=== PATIENT | male | born 1945 | race Caucasian/White ===

== ENCOUNTER 2020-04-11 14:50 | Emergency (ER) | payer OTHER, MEDICARE, SELFPAY ==
[2020-04-11 15:15] VITALS: BP 151/82; PULSE 97; RESP 16; TEMP 36.6; O2SAT 93; BMI 38.0
[2020-04-11 16:02] LABS: Basophils % 0.4 %; Eosinophils # 0.2 10^3/uL (0.0-0.8); Hematocrit 43.4 % (42.0-52.0); Hemoglobin 13.6 g/dL (11.7-16.6); Lymphocytes # 1.6 10^3/uL (0.8-4.8); Lymphocytes % 14.4 %; Mean Corpuscular HGB Conc 31.3 g/dL (30.0-36.0); Mean Corpuscular Hemoglobin 28.6 pg (28.0-34.0); Mean Corpuscular Volume 91.2 fL (80-94); Mean Platelet Volume 9.2 fL (7.4-10.4); Monocytes # 0.9 10^3/uL (0.2-0.9); Monocytes % 8.4 %; Neutrophils # 7.98 10^3/uL (1.8-7.7); Neutrophils % 74.1 %; Nucleated Red Blood Cells % 0 %; Platelet Count 411 10^3/cmm (130-400); Red Blood Count 4.76 10^6/uL (4.1-5.3); Red Cell Distribution Width 15.3 % (12.1-15.1); White Blood Count 10.8 10^3/uL (4.0-10.0)
[2020-04-11 16:24] LABS: Alanine Aminotransferase 42 U/L (0-41); Albumin Level 4.6 g/dL (3.5-5.2); Alkaline Phosphatase 101 IU/L (40-130); Anion Gap 13.7 (5-19); Aspartate Amino Transferase 52 U/L (0-40); Blood Urea Nitrogen 20 mg/dL (8-23); Calcium 9.7 mg/dL (8.5-10.5); Carbon Dioxide 33 mmol/L (22-29); Chloride 98 mmol/L (98-107); Glucose 116 mg/dL (65-115); Osmolality Calculated 288 mOsm/kg (285-295); Potassium 4.7 mmol/L (3.5-5.1); Sodium 140 mmol/L (136-145); Total Bilirubin 0.4 mg/dL (0.15-1.2); Total Protein 7.6 g/dL (6.6-8.7)
--- NOTE | 2020-04-11 17:48 | W.ED.GENADLT ---
HPI - General Adult General: Chief complaint: General Medical Stated complaint: Facial pain, throat pain Time Seen by Provider: 04/11/20 17:23 History of Present Illness: HPI narrative: 74-year-old male comes in with complaining of intermittent sharp severe facial pain on the left side that shoots through the face into his ear and jaw. It comes and goes intermittently when he does get it it is quite severe. [facility]en seen [facility] they have been treating with antibiotics and steroids with no relief. States he will get episodes of facial pain that are so severe that it become incapacitating. Onset (ago): week(s) Location: face Radiation: non-radiation Severity: severe Quality: stabbing and sharp Pain Consistency: intermittent Relieving factors: none Exacerbating factors: none Associated symptoms: Reports no associated symptoms; Deny chest pain, dyspnea, malaise, nausea, rash or vomiting Treatments prior to arrival: other (Steroids and antibiotics with no relief) Review of Systems Const: Denies: fever(s), chills, body aches, change in appetite, fatigue or malaise ENMT: Denies: throat pain, ear or mastoid pain, nasal discharge or nasal congestion Card: Denies: chest pain, edema, dyspnea on exertion or orthopnea Resp: Denies: dyspnea, productive cough or non-productive cough GI: Denies: abdominal pain, nausea, vomiting, hematemesis, coffee ground emesis, diarrhea, constipation, bloating, hematochezia or melena : Denies: flank pain, dysuria, urinary frequency or urinary urgency Skin/Breast: Denies: rash or pruritus PFSH ED PFSH: Medical History Anticoagulant long-term use Aortic insufficiency with aortic stenosis ASHD (arteriosclerotic heart disease) COPD (chronic obstructive pulmonary disease) Dyslipidemia GERD (gastroesophageal reflux disease) HTN (hypertension) Hx pulmonary embolism THANG (obstructive sleep apnea) Statin intolerance Tobacco abuse Surgical History S/P PTCA (percutaneous transluminal coronary angioplasty) S/P tonsillectomy Family History Brother Cancer Diabetes Hypertension Myocardial infarction Mother CAD (coronary artery disease) Diabetes Hypertension Myocardial infarction Father CAD (coronary artery disease) Stroke Hypertension Myocardial infarction Sister CAD (coronary artery disease) Social History Smoking and tobacco status: former smoker Alcohol intake: current Substance/Drug Use: current Substance/Drug use frequency: few times a month Substance/Drug use type: Marijuana Household members: spouse Marital status: Physical Exam Const: COMMON NORMALS: no acute distress GENERAL APPEARANCE: cooperative and comfortable ORIENTATION/CONSCIOUSNESS: Yes awake, Yes oriented to person, Yes oriented to place and Yes oriented to time HENMT: COMMON NORMALS: normocephalic, atraumatic, hearing grossly normal bilaterally, external ears normal, EAC's normal, TM's normal bilaterally, Normal nasal mucous membranes and turbinates present, moist oral mucous membranes and oropharynx normal HEAD & SCALP: normocephalic and atraumatic NOSE: Normal nasal mucous membranes and turbinates present EXTERNAL EAR: Yes external ears normal EXTERNAL AUDITORY CANAL: EAC's normal TYMPANIC MEMBRANE: TM's normal bilaterally Eye: COMMON NORMALS: Equal, round and reactive pupils present, EOMs intact bilaterally, conjunctivae normal and no scleral icterus CONJUNCTIVA: Yes conjunctivae normal PUPIL: Yes Equal, round and reactive pupils present Neck/C-Spine: COMMON NORMALS: full ROM, no lymphadenopathy, supple and no JVD Lymph: LYMPHATIC: no lymphadenopathy noted and no lymphedema noted Resp: COMMON NORMALS: normal respiratory effort, No retractions, No use of accessory muscles and clear to auscultation bilaterally AUSCULTATION: clear to auscultation bilaterally Cardio: COMMON NORMALS: no JVD, regular rate, regular rhythm and No murmurs present (Cardio) RATE: regular rate RHYTHM: regular rhythm GI: COMMON NORMALS: Soft to palpation and No hepatosplenomegaly present AUSCULTATION: Yes normoactive bowel sounds PALPATION: Yes Soft to palpation, No Tenderness to palpation present (GI), No Guarding due to palpation present (GI) and Yes No hepatosplenomegaly present Extremity: COMMON NORMALS: normal to inspection, capillary refill normal, no clubbing, cyanosis or edema, no calf tenderness and no pedal edema Neuro: SENSORIUM/ORIENTATION: Yes oriented to person, Yes oriented to place and Yes oriented to time Skin: COMMON NORMALS: no rashes or lesions noted GENERAL SKIN EXAM: no rashes or lesions noted Course Vital Signs: Vital signs: Vital Signs Temperature 97.8 F 04/11/20 15:15 Pulse Rate 87 04/11/20 17:51 Respiratory Rate 19 H 04/11/20 17:51 Blood Pressure 162/82 04/11/20 17:51 Pulse Oximetry 92 04/11/20 17:51 MDM - General Adult MDM Narrative: Medical decision making narrative: Discussed the findings with patient we will start him on Tegretol to 200 mg 3 times daily follow-up with primary care doctor within the week for further evaluation and adjustment of medications he may need to be increased to 400 mg twice a day depending on his response and any further breakthrough symptoms Lab Data: Labs: Lab Results 04/11/20 04/11/20 Range/Units 15:55 15:55 WBC 10.8 H (4.0-10.0) 10^3/ uL RBC 4.76 (4.1-5.3) 10^6/u L Hgb 13.6 (11.7-16.6) g/dL Hct 43.4 (42.0-52.0) % MCV 91.2 (80-94) fL MCH 28.6 (28.0-34.0) pg MCHC 31.3 (30.0-36.0) g/dL RDW 15.3 H (12.1-15.1) % Plt Count 411 H (130-400) 10^3/c mm MPV 9.2 (7.4-10.4) fL Neut % (Auto) 74.1 % Lymph % (Auto) 14.4 % [place] % (Auto) 8.4 % Eos % (Auto) 2.0 % Baso % (Auto) 0.4 % Neut # (Auto) 7.98 H (1.8-7.7) 10^3/u L Lymph # (Auto) 1.6 (0.8-4.8) 10^3/u L [place] # (Auto) 0.9 (0.2-0.9) 10^3/u L Eos # (Auto) 0.2 (0.0-0.8) 10^3/u L Baso # (Auto) 0.0 (0.0-0.1) 10^3/u L Nucleated RBC % (a uto) 0 % Nucleated RBCs # 0.0 /100WBC Sodium 140 (136-145) mmol/L Potassium 4.7 (3.5-5.1) mmol/L Chloride 98 (98-107) mmol/L Carbon Dioxide 33 H (22-29) mmol/L Anion Gap 13.7 (5-19) BUN 20 (8-23) mg/dL Creatinine 1.2 (0.7-1.2) mg/dL GFR Calculation Not Reportable Glucose 116 H (65-115) mg/dL Calculated Osmolal ity 288 (285-295) mOsm/k g Calcium 9.7 (8.5-10.5) mg/dL Total Bilirubin 0.4 (0.15-1.2) mg/dL AST 52 H (0-40) U/L ALT 42 H (0-41) U/L Alkaline Phosphata se 101 (40-130) IU/L Total Protein 7.6 (6.6-8.7) g/dL Albumin 4.6 (3.5-5.2) g/dL Globulin 3.0 (1.3-4.6) g/dL Discharge Plan Discharge Patient Disposition: Home Clinical Impression: Trigeminal neuralgia Condition: Stable Prescriptions: New Tegretol 200 mg tablet 200 mg PO TID Qty: 60 RF: 0 No Action aspirin [Aspir-81] 81 mg tablet,delayed release (DR/EC) 81 mg PO DAILY RF: 0 pantoprazole 40 mg tablet,delayed release (DR/EC) 40 mg PO DAILY RF: 0 losartan 100 mg tablet 100 mg PO DAILY RF: 0 clopidogrel 75 mg tablet 75 mg PO DAILY RF: 0 metoprolol tartrate 50 mg tablet 25 mg PO BID RF: 0 metformin 1,000 mg tablet 1,000 mg PO BID RF: 0 Eliquis 5 mg tablet 5 mg PO BID RF: 0 Spiriva with HandiHaler 18 mcg capsule, w/inhalation device 1 cap INHALATION DAILY RF: 0 albuterol sulfate [ProAir HFA] 90 mcg/actuation HFA aerosol inhaler 2 puff INHALATION Q6H PRNRF: 0 Discharge Orders: Discharge Order (Routine); Ordered 04/11/20 Ordered By: Eric Watson Referrals: Ely Gunter FNP [Primary Care Provider] - Discharge Diet: Advance as tolerated Discharge Activity: Resume usual activity Activity Restrictions/Additional Instructions: With your primary care doctor within the next 2 weeks to reevaluate efficacy of this new medicine and get appropriate lab work Discharge Date/Time: 04/11/20 17:52 Coding Level of Care Code ED Erp Project Manager for Kari Ortiz
[2020-04-11 17:51] VITALS: BP 162/82; PULSE 87; RESP 19; O2SAT 92
== END 2020-04-11 17:52 | disposition home or self-care (01) ==
PROVIDERS: Nurse Practitioner Family; Emergency Provider Family Medicine; PCP Nurse Practitioner
DX: G50.0 Trigeminal neuralgia (principal); Z79.82 Long term (current) use of aspirin; Z79.02 Long term (current) use of antithrombotics/antiplatelets; Z79.01 Long term (current) use of anticoagulants; J44.9 Chronic obstructive pulmonary disease, unspecified; E78.5 Hyperlipidemia, unspecified; I10 Essential (primary) hypertension; Z87.891 Personal history of nicotine dependence
CPT/HCPCS: 12345; 36415; 80053; 85025; 99281; 99282

== ENCOUNTER 2020-05-22 08:11 | Outpatient (CLI) | payer OTHER, SELFPAY ==
--- NOTE | 2020-05-22 08:00 | USCV_ITS ---
Aamir Santa Age: 74 Gender: M : 1945 Exam Date: 05/22/2020 08:34 Ordering Phys: Dav Ramirez M.D ([email or web address]) Technologist: Denise Phillips Exam Location: [facility] [place] Indication: DYSPNEA BP: 186 / 83 HR: 84 Rhythm: Sinus Technical Quality: Adequate MEASUREMENTS (Male / Female) Normal Values 2D ECHO LV Diastolic Diameter PLAX 3.8 cm 4.2 - 5.9 / 3.9 - 5.3 cm LV Systolic Diameter PLAX 1.8 cm LV Chamber Size 2.5 cm IVS Diastolic Thickness 1.6 cm 0.6 - 1.0 / 0.6 - 0.9 cm IVS Systolic Thickness 1.4 cm LVPW Diastolic Thickness 2.4 cm 0.6 - 1.0 / 0.6 - 0.9 cm LVPW Systolic Thickness 2.9 cm RV Chamber Size 3.9 cm LVOT Diameter 2.0 cm LV Ejection Fraction 2D Teich 84.9 % LV Ejection Fraction MOD 2C 65.5 % LV Ejection Fraction 2C AL 67.1 % LA Diameter 4.9 cm LA Width 2.5 cm LA Height 4.1 cm RA Width 2.8 cm RA Height 3.5 cm Aorta at Sinotubular Diameter 3.0 cm M-MODE LV Diastolic Diameter MM 5.1 cm 4.2 - 5.9 / 3.9 - 5.3 cm LV Systolic Diameter MM 2.3 cm LV Ejection Fraction MM Teich 85.4 % IVS Diastolic Thickness MM 1.2 cm 0.6 - 1.0 / 0.6 - 0.9 cm IVS Systolic Thickness MM 1.4 cm LVPW Diastolic Thickness MM 1.7 cm 0.6 - 1.0 / 0.6 - 0.9 cm LVPW Systolic Thickness MM 2.1 cm Aortic Annulus Diameter 3.8 cm LA Ao Ratio MM 1.3 MV E Point Septal Separation 0.6 cm DOPPLER AV Peak Velocity 140.0 cm/s LVOT Peak Velocity 114.0 cm/s AV Area Cont Eq vti 2.2 cm squared AV Area Cont Eq pk 2.7 cm squared MV Area PHT 3.9 cm squared Mitral E to A Ratio 0.8 MV E' Velocity 11.0 cm/s Mitral E to MV E' Ratio 7.0 Mitral E to LV E' Lateral Ratio 8.1 Mitral E to LV E' Septal Ratio 6.2 TR Peak Velocity 152.0 cm/s TR Peak Gradient 9.3 mmHg TV Peak E Velocity 60.0 cm/s Right Atrial Pressure 3.0 mmHg Pulmonary Artery Systolic Pressu 12.2 mmHg PV Peak Velocity 96.0 cm/s RV Acceleration Time 0.0 s RV Ejection Time 0.3 s RV AcT/ET 0.2 FINDINGS Left Ventricle Normal left ventricular size and systolic function, with no regional wall motion abnormalities. LVEF is 60 to 65%. Mild to moderate LVH is noted. Grade 1 diastolic dysfunction is present. Right Ventricle The right ventricle is normal in size and function. Right Atrium The right atrium is normal in size. Left Atrium The left atrium is normal in size. Mitral Valve Structurally normal mitral valve without significant stenosis or prolapse. There is no mitral regurgitation. Aortic Valve S mild thickening of aortic valve. No hemodynamically significant aortic stenosis is noted. There is trace aortic regurgitation. Tricuspid Valve Structurally normal tricuspid valve without significant stenosis or regurgitation. Insufficient TR jet to measure RVSP. Pulmonic Valve Structurally normal pulmonic valve without significant stenosis. There is no pulmonic regurgitation. Pericardium Normal pericardium without effusion. Aorta Normal ascending aorta dimension. CONCLUSIONS Normal LV systolic function with EF of 60 to 65%. Grade 1 diastolic dysfunction is present. No significant changes since the prior study of 06/28/2018 Dav Ramirez MD (Electronically Signed) Final Date: 27 May 2020 10:43 S
== END 2020-05-22 08:12 | disposition home or self-care (01) ==
LOC: US 08:20
PROVIDERS: PCP Nurse Practitioner; Visit Provider Internal Medicine
DX: R06.00 Dyspnea, unspecified (principal)
CPT/HCPCS: 93306

== ENCOUNTER → 2021-04-04 08:25 | Outpatient (BNVA) | payer OTHER, SELFPAY | PROVIDERS: PCP Nurse Practitioner; Visit Provider Urology | DX: N48.1 Balanitis (principal); N47.1 Phimosis; Z86.711 Personal history of pulmonary embolism; Z79.01 Long term (current) use of anticoagulants | CPT/HCPCS: 81003 ==

== ENCOUNTER → 2021-04-25 13:56 | Outpatient (BNVA) | payer OTHER, SELFPAY | PROVIDERS: PCP Nurse Practitioner; Visit Provider Urology | DX: N47.1 Phimosis (principal); N48.1 Balanitis | CPT/HCPCS: 88305 ==

== ENCOUNTER 2021-05-30 12:21 | Outpatient (CLI) | payer OTHER, SELFPAY ==
--- NOTE | 2021-05-30 12:31 | XR_ITS ---
WS: [id number] XR chest 2V* [id number] REASON FOR EXAM: R07.1 - Chest pain on breathing FINDINGS: Moderate ectasia and tortuosity of the thoracic aorta without focal aneurysmal dilatation. Normal hea rt size. Calcified granulomas disease in both hemithoraces. Compared to previous examination of 08/15/2018 no acute pulmonary parenchymal or pleural abnormality i s identified. Chronic appearing changes are seen in the lower lungs and lingula of the left lung. The bony thorax is intact. XR/XR chest 2V* [id number] IMPRESSION: No acute chest abnormality.
== END 2021-05-30 12:22 | disposition home or self-care (01) ==
LOC: RAD 12:26
PROVIDERS: PCP Nurse Practitioner; Visit Provider Nurse Practitioner Family
DX: R07.1 Chest pain on breathing (principal)
CPT/HCPCS: 71046

== ENCOUNTER 2021-05-31 20:01 | Observation (INO) | payer OTHER, MEDICARE, SELFPAY ==
[2021-05-31] VITALS (19 sets, daily range): BP systolic 139–238; BP diastolic 66–114; PULSE 83–106; RESP 16–27; TEMP 36.8; O2SAT 89–97; BMI 34.9
--- NOTE | 2021-05-31 20:03 | XRR_ITS ---
PROCEDURE INFORMATION: Exam: XR Chest Exam date and time: 05/31/2021 8:03 PM Age: 75 years old Clinical indication: Chest pressure; Patient HX: Chest pain x 5-6 days. RT side of sternum still. Had 2v chest yesterday here; Additional info: Cp TECHNIQUE: Imaging protocol: XR of the chest. Views: 1 view. COMPARISON: CR XR chest 2V* [id number] 05/30/2021 12:44 PM FINDINGS: Lungs: Mild atelectasis or scar in the lingula. The lungs are otherwise clear. Pleural spaces: Unremarkable. No pleural effusion. No pneumothorax. Heart/Mediastinum: Unremarkable. No cardiomegaly. Bones/joints: Mild rightward curvature. XR/XR chest 1V portable [id number] IMPRESSION: No acute findings.
--- NOTE | 2021-05-31 20:03 | ECG_ITS ---
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 Measurements Intervals [place] Rate: 92 P: NE: QRS: 69 QRSD: 124 T: 25 QT: 374 QTc: 464 Interpretive Statements UNCERTAIN IRREGULAR RHYTHM POSSIBLE INFERIOR MYOCARDIAL INFARCTION , PROBABLY OLD [30 ms Q WAVE IN II/aVF] ABNORMAL RHYTHM ECG Compared to ECG 08/15/2018 14:14:22 Myocardial infarct finding now present Sinus rhythm no longer present Electronically Signed On 06-01-2021 18:02:01 CDT by Kevin Ghosh M.D. [email or web address]
[2021-05-31 20:21] LABS: Basophils % 0.2 %; Eosinophils # 0.3 10^3/uL (0.0-0.8); Eosinophils % 2.3 %; Hematocrit 41.6 % (42.0-52.0); Hemoglobin 13.4 g/dL (11.7-16.6); Lymphocytes # 1.2 10^3/uL (0.8-4.8); Lymphocytes % 9.5 %; Mean Corpuscular HGB Conc 32.2 g/dL (30.0-36.0); Mean Corpuscular Hemoglobin 29.6 pg (28.0-34.0); Mean Corpuscular Volume 91.8 fl (80-94); Mean Platelet Volume 9.3 fL (7.4-10.4); Monocytes % 8.1 %; Neutrophils # 10.17 10^3/uL (1.8-7.7); Neutrophils % 79.4 %; Nucleated Red Blood Cells % 0 %; Platelet Count 405 10^3/cmm (130-400); Red Blood Count 4.53 10^6/uL (4.1-5.3); Red Cell Distribution Width 13.6 % (12.1-15.1); White Blood Count 12.8 10^3/uL (4.0-10.0)
--- NOTE | 2021-05-31 20:21 | ED_ITS ---
HPI - Chest Pain General: Chief Complaint: Chest Pain Stated Complaint: Chest Pains Time Seen by Provider: 05/31/21 20:04 Source: patient Mode of arrival: ambulatory Limitations: no limitations History of Present Illness: HPI narrative: 75-year-old male has extensive cardiac history and had a pulmonary embolism a little over a year ago. He states over the last week he has been having increasing chest pains along with some shortness of breath as well. States pains are sharp in nature and is currently an 8 out of 10. Patient is hypertensive here but states he did not take his pain meds at home. He takes apixaban at home along with Plavix. Denies any worsening improving factors. He also has a history of CHF and COPD. MD complaint: chest pain Associated symptoms: Deny abdominal pain, dyspnea, fever(s), nausea or vomiting Review of Systems Const: Denies: fever(s), chills, body aches or change in appetite Eyes: Denies: blurry vision or eye discomfort ENMT: Denies: throat pain or dental pain Card: Reports: chest pain Resp: Denies: dyspnea GI: Denies: abdominal pain, nausea, vomiting or diarrhea : Denies: dysuria Musc: Denies: neck pain or back pain Skin/Breast: Denies: rash Neuro: Denies: headache(s) Psych: Denies: depression Theron/Lymph: Denies: easy bruising All/Imm: Denies: urticaria PFSH ED PFSH: Medical History Anticoagulant long-term use Aortic insufficiency with aortic stenosis ASHD (arteriosclerotic heart disease) Balanitis COPD (chronic obstructive pulmonary disease) Dyslipidemia GERD (gastroesophageal reflux disease) HTN (hypertension) Hx pulmonary embolism THANG (obstructive sleep apnea) Statin intolerance Tobacco abuse Surgical History S/P PTCA (percutaneous transluminal coronary angioplasty) S/P tonsillectomy Family History Brother Cancer Diabetes Hypertension Myocardial infarction Mother CAD (coronary artery disease) Diabetes Hypertension Myocardial infarction Father CAD (coronary artery disease) Stroke Hypertension Myocardial infarction Sister CAD (coronary artery disease) Social History Alcohol intake: current Household members: spouse Marital status: Physical Exam Const: COMMON NORMALS: no acute distress, patient oriented x3 and healthy appearing HENMT: COMMON NORMALS: normocephalic and atraumatic HEAD & SCALP: normocephalic and atraumatic Eye: COMMON NORMALS: Equal, round and reactive pupils present and EOMs intact bilaterally PUPIL: Yes Equal, round and reactive pupils present Neck/C-Spine: COMMON NORMALS: full ROM and supple Chest: COMMONS NORMALS: normal inspection of the chest and normal palpation of entire chest wall Resp: COMMON NORMALS: normal respiratory effort, No retractions and No use of accessory muscles AUSCULTATION: wheezes Cardio: COMMON NORMALS: regular rate, regular rhythm and No murmurs present (Cardio) RATE: regular rate RHYTHM: regular rhythm GI: COMMON NORMALS: Normal to inspection, nondistended, normoactive bowel sounds present, Soft to palpation, non-tender and no masses PALPATION: Yes Soft to palpation Extremity: COMMON NORMALS: normal to inspection and full ROM Neuro: COMMON NORMALS: patient oriented x3, moves all extremities and no focal motor deficits Psych: COMMON NORMALS: mental status grossly normal, Normal thought process present and cooperative THOUGHT PROCESS: Normal thought process present Skin: COMMON NORMALS: no rashes or lesions noted and no wounds GENERAL SKIN EXAM: no rashes or lesions noted Course Vital Signs: Vital signs: Vital Signs Temperature 98.3 F 05/31/21 20:12 Pulse Rate 96 05/31/21 21:15 Respiratory Rate 22 H 05/31/21 22:13 Blood Pressure 147/66 05/31/21 21:30 Pulse Oximetry 92 05/31/21 21:15 MDM - Chest Pain MDM Narrative: Medical decision making narrative: Patient presents here with chest pain. His CTA here is negative blood work is normal as well. His pain is much improved. He does have extensive history and will admit for ACS rule out. Lab Data: Labs: Lab Results 05/31/21 05/31/21 05/31/21 Range/Units 20:10 20:10 20:10 WBC 12.8 H (4.0-10.0) 10^3/ uL RBC 4.53 (4.1-5.3) 10^6/u L Hgb 13.4 (11.7-16.6) g/dL Hct 41.6 L (42.0-52.0) % MCV 91.8 (80-94) fl MCH 29.6 (28.0-34.0) pg MCHC 32.2 (30.0-36.0) g/dL RDW 13.6 (12.1-15.1) % Plt Count 405 H (130-400) 10^3/c mm MPV 9.3 (7.4-10.4) fL Neut % (Auto) 79.4 % Lymph % (Auto) 9.5 % Stevens % (Auto) 8.1 % Eos % (Auto) 2.3 % Baso % (Auto) 0.2 % Neut # (Auto) 10.17 H (1.8-7.7) 10^3/u L Lymph # (Auto) 1.2 (0.8-4.8) 10^3/u L Stevens # (Auto) 1.0 H (0.2-0.9) 10^3/u L Eos # (Auto) 0.3 (0.0-0.8) 10^3/u L Baso # (Auto) 0.0 (0.0-0.1) 10^3/u L Nucleated RBC % (a uto) 0 % Nucleated RBCs # 0.0 /100WBC PT 14.00 (12.1-14.9) SECO NDS INR 1.05 (0.8-1.2) D-Dimer 1.65 H (0-0.59) ug/mIFE U Sodium 139 (136-145) mmol/L Potassium 4.2 (3.5-5.1) mmol/L Chloride 99 (98-107) mmol/L Carbon Dioxide 28 (22-29) mmol/L Anion Gap 16.2 (5-19) BUN 14 (8-23) mg/dL Creatinine 0.9 (0.7-1.2) mg/dL GFR Calculation Not Reportable Glucose 191 H (65-115) mg/dL Calculated Osmolal ity 294 (285-295) mOsm/k g Calcium 9.0 (8.5-10.5) mg/dL Total Bilirubin 0.3 (0.15-1.2) mg/dL AST 52 H (0-40) U/L ALT 39 (0-41) U/L Alkaline Phosphata se 111 (40-130) IU/L Troponin T Baselin e (0-15) ng/L Troponin T 120 Min [place] (0-15) ng/L Delta Troponin T (0-10) ABS# NT-Pro-B Natriuret Pep 134 H (0-125) pg/mL Total Protein 7.3 (6.6-8.7) g/dL Albumin 4.1 (3.5-5.2) g/dL Globulin 3.2 (1.3-4.6) g/dL Lipase (13-60) U/L SARS-CoV-2 Ag (Rap id) (Negative) 05/31/21 05/31/21 05/31/21 Range/Units 20:10 20:35 22:15 WBC (4.0-10.0) 10^3/ uL RBC (4.1-5.3) 10^6/u L Hgb (11.7-16.6) g/dL Hct (42.0-52.0) % MCV (80-94) fl MCH (28.0-34.0) pg MCHC (30.0-36.0) g/dL RDW (12.1-15.1) % Plt Count (130-400) 10^3/c mm MPV (7.4-10.4) fL Neut % (Auto) % Lymph % (Auto) % Stevens % (Auto) % Eos % (Auto) % Baso % (Auto) % Neut # (Auto) (1.8-7.7) 10^3/u L Lymph # (Auto) (0.8-4.8) 10^3/u L Stevens # (Auto) (0.2-0.9) 10^3/u L Eos # (Auto) (0.0-0.8) 10^3/u L Baso # (Auto) (0.0-0.1) 10^3/u L Nucleated RBC % (a uto) % Nucleated RBCs # /100WBC PT (12.1-14.9) SECO NDS INR (0.8-1.2) D-Dimer (0-0.59) ug/mIFE U Sodium (136-145) mmol/L Potassium (3.5-5.1) mmol/L Chloride (98-107) mmol/L Carbon Dioxide (22-29) mmol/L Anion Gap (5-19) BUN (8-23) mg/dL Creatinine (0.7-1.2) mg/dL GFR Calculation Glucose (65-115) mg/dL Calculated Osmolal ity (285-295) mOsm/k g Calcium (8.5-10.5) mg/dL Total Bilirubin (0.15-1.2) mg/dL AST (0-40) U/L ALT (0-41) U/L Alkaline Phosphata se (40-130) IU/L Troponin T Baselin e 22 H (0-15) ng/L Troponin T 120 [address] [place] 21.74 H (0-15) ng/L Delta Troponin T -0.26 L (0-10) ABS# NT-Pro-B Natriuret Pep (0-125) pg/mL Total Protein (6.6-8.7) g/dL Albumin (3.5-5.2) g/dL Globulin (1.3-4.6) g/dL Lipase (13-60) U/L SARS-CoV-2 Ag (Rap id) Negative (Negative) 05/31/21 Range/Units 22:15 WBC (4.0-10.0) 10^3/ uL RBC (4.1-5.3) 10^6/u L Hgb (11.7-16.6) g/dL Hct (42.0-52.0) % MCV (80-94) fl MCH (28.0-34.0) pg MCHC (30.0-36.0) g/dL RDW (12.1-15.1) % Plt Count (130-400) 10^3/c mm MPV (7.4-10.4) fL Neut % (Auto) % Lymph % (Auto) % Stevens % (Auto) % Eos % (Auto) % Baso % (Auto) % Neut # (Auto) (1.8-7.7) 10^3/u L Lymph # (Auto) (0.8-4.8) 10^3/u L Stevens # (Auto) (0.2-0.9) 10^3/u L Eos # (Auto) (0.0-0.8) 10^3/u L Baso # (Auto) (0.0-0.1) 10^3/u L Nucleated RBC % (a uto) % Nucleated RBCs # /100WBC PT (12.1-14.9) SECO NDS INR (0.8-1.2) D-Dimer (0-0.59) ug/mIFE U Sodium (136-145) mmol/L Potassium (3.5-5.1) mmol/L Chloride (98-107) mmol/L Carbon Dioxide (22-29) mmol/L Anion Gap (5-19) BUN (8-23) mg/dL Creatinine (0.7-1.2) mg/dL GFR Calculation Glucose (65-115) mg/dL Calculated Osmolal ity (285-295) mOsm/k g Calcium (8.5-10.5) mg/dL Total Bilirubin (0.15-1.2) mg/dL AST (0-40) U/L ALT (0-41) U/L Alkaline Phosphata se (40-130) IU/L Troponin T Baselin e (0-15) ng/L Troponin T 120 [address] [place] (0-15) ng/L Delta Troponin T (0-10) ABS# NT-Pro-B Natriuret Pep (0-125) pg/mL Total Protein (6.6-8.7) g/dL Albumin (3.5-5.2) g/dL Globulin (1.3-4.6) g/dL Lipase 17 (13-60) U/L SARS-CoV-2 Ag (Rap id) (Negative) Imaging Data^: CXR: Attestation: I personally reviewed and interpreted this imaging study as follows: Radiologist's impression: [address] [address] XRay Report Signed Patient: Aamir Santa Unit #: [id number] : 1945 Age/Sex: 75 / M ADM Date: 05/31/21 Loc: ER Room/Bed: Attending Dr: Ordering Provider/Ordering MD: Camden Garcia MD Date of Service: 05/31/21 Procedure(s): XR chest 1V portable [id number] Accession Number(s): [id number] Report Number: [id number] PROCEDURE INFORMATION: Exam: XR Chest Exam date and time: 05/31/2021 8:03 PM Age: 75 years old Clinical indication: Chest pressure; Patient HX: Chest pain x 5-6 days. RT side of sternum still. Had 2v chest yesterday here; Additional info: Cp TECHNIQUE: Imaging protocol: XR of the chest. Views: 1 view. COMPARISON: CR XR chest 2V* [id number] 05/30/2021 12:44 PM FINDINGS: Lungs: Mild atelectasis or scar in the lingula. The lungs are otherwise clear. Pleural spaces: Unremarkable. No pleural effusion. No pneumothorax. Heart/Mediastinum: Unremarkable. No cardiomegaly. Bones/joints: Mild rightward curvature. XR/XR chest 1V portable [id number] IMPRESSION: No acute findings. Dictated By: Henrique Robb Signed By: Henrique Robb Signed Date/Time: 05/31/212102 DD/ 01 CT Chest: Attestation: I personally reviewed and interpreted this imaging study as follows: Radiologist's impression: [place] [address] CT Scan Report Signed Patient: Aamir Santa Unit #: [id number] : 1945 Age/Sex: 75 / M ADM Date: 05/31/21 Loc: ER Room/Bed: Attending Dr: Ordering Provider/Ordering MD: Camden Garcia MD Date of Service: 05/31/21 Procedure(s): CT angio chest PE protcl [id number] Accession Number(s): [id number] Report Number: [id number] PROCEDURE INFORMATION: Exam: CTA Chest With Contrast Exam date and time: 05/31/2021 8:47 PM Age: 75 years old Clinical indication: Chest wall pain; Prior surgery; Surgery date: 6+ months; Surgery type: Stents; Patient HX: C/O cp x 1 week w SOB TECHNIQUE: Imaging protocol: Computed tomographic angiography of the chest with contrast. 3D rendering (Not supervised by radiologist): MIP and/or 3D reconstructed images were created by the technologist. Radiation optimization: All CT scans at this facility use at least one of these dose optimization techniques: automated exposure control; mA and/or kV adjustment per patient size (includes targeted exams where dose is matched to clinical indication); or iterative reconstruction. Contrast material: OMNI 350; Contrast volume: 150 ml; Contrast route: INTRAVENOUS (IV); COMPARISON: CTA Chest-Pulmonary Emb [id number] 08/15/2018 3:00 PM RADIATION DOSE METRICS: Total DLP (mGy-cm): 1058.18 FINDINGS: Pulmonary arteries: Suboptimal contrast bolus timing. No filling defects identified within the central or lobar pulmonary arteries. The segmental and smaller artery branches are suboptimally opacified to exclude embolus. Aorta: Unremarkable. No aortic aneurysm. No aortic dissection. Lungs: Atelectasis in the left lung base. The lungs are otherwise clear. Pleural spaces: Left posterior subpleural fatty deposition. No pleural effusion. No pneumothorax. Heart: Coronary artery calcifications. The heart size is normal. Lymph nodes: Unremarkable. No enlarged lymph nodes. Kidneys and ureters: Fluid density left renal cyst, Hounsfield units less than 20. No follow-up imaging is recommended. Bones/joints: Unremarkable. No acute fracture. Soft tissues: Unremarkable. CT/CT angio chest PE protcl [id number] IMPRESSION: 1. No evidence for pulmonary embolus in the larger pulmonary arteries. Evaluation of the smaller artery branches is limited due to suboptimal contrast bolus timing. COMMENTS: Consistent with the [employer]'s Incidental Findings Committee white paper (J Am Trupti Radiol 2018): Any incidental renal lesion less than 1 cm or classified as too small to characterize, or any incidental cystic renal lesion characterized as simple-appearing, is likely benign. No follow-up imaging is recommended for these lesions per consensus recommendations based on imaging criteria. Radiation Dose CTDIVOL = (mGy): DLP = 1058.18 (mGy-cm) Dictated By: Henrique Robb Signed By: Henrique Robb Signed Date/Time: 05/31/212221 DD/ 20 EKG Data^: EKG 1: Attestation: I personally reviewed and interpreted this EKG as follows: EKG interpretation date: 05/31/21 EKG interpretation time: 20:16 Interpretation: nsr hr [address] or t wave abnormalities qrs 124 qtc 424 EKG 2: Attestation: I personally reviewed and interpreted this EKG as follows: EKG interpretation date: 05/31/21 EKG interpretation time: 22:19 Interpretation: nsr hr [address] or t wave abnormalities qrs 102 qtc 417 Discharge Plan Discharge Patient Disposition: Placed in Observation Clinical Impression: Chest pain Qualifiers: Chest pain type: unspecified Qualified Code(s): R07.9 - Chest pain, unspecified Coding Level of Care Code ED Legal Research Analyst for Chg Fwd Exam Comprehensive
[2021-05-31] MEDS: aspirin 81 mg Chew Tablet 324 MG PO (20:28)
[2021-05-31] MEDS: nitroglycerin 0.4 mg sublingual Tablet SUBLINGUAL ×2 (20:28→20:45)
[2021-05-31] MEDS: ipratropium-albuterol 3 mL Neb INHALATION (20:32)
[2021-05-31 20:33] LABS: INR 1.05 (0.8-1.2)
[2021-05-31 20:36] LABS: D Dimer 1.65 ug/mIFEU (0-0.59)
--- NOTE | 2021-05-31 20:47 | CTR_ITS ---
PROCEDURE INFORMATION: Exam: CTA Chest With Contrast Exam date and time: 05/31/2021 8:47 PM Age: 75 years old Clinical indication: Chest wall pain; Prior surgery; Surgery date: 6+ months; Surgery type: Stents; Patient HX: C/O cp x 1 week w SOB TECHNIQUE: Imaging protocol: Computed tomographic angiography of the chest with contrast. 3D rendering (Not supervised by radiologist): MIP and/or 3D reconstructed images were created by the technologist. Radiation optimization: All CT scans at this facility use at least one of these dose optimization techniques: automated exposure control; mA and/or kV adjustment per patient size (includes targeted exams where dose is matched to clinical indication); or iterative reconstruction. Contrast material: OMNI 350; Contrast volume: 150 ml; Contrast route: INTRAVENOUS (IV); COMPARISON: CTA Chest-Pulmonary Emb [id number] 08/15/2018 3:00 PM RADIATION DOSE METRICS: Total DLP (mGy-cm): 1058.18 FINDINGS: Pulmonary arteries: Suboptimal contrast bolus timing. No filling defects identified within the central or lobar pulmonary arteries. The segmental and smaller artery branches are suboptimally opacified to exclude embolus. Aorta: Unremarkable. No aortic aneurysm. No aortic dissection. Lungs: Atelectasis in the left lung base. The lungs are otherwise clear. Pleural spaces: Left posterior subpleural fatty deposition. No pleural effusion. No pneumothorax. Heart: Coronary artery calcifications. The heart size is normal. Lymph nodes: Unremarkable. No enlarged lymph nodes. Kidneys and ureters: Fluid density left renal cyst, Hounsfield units less than 20. No follow-up imaging is recommended. Bones/joints: Unremarkable. No acute fracture. Soft tissues: Unremarkable. CT/CT angio chest PE protcl [id number] IMPRESSION: 1. No evidence for pulmonary embolus in the larger pulmonary arteries. Evaluation of the smaller artery branches is limited due to suboptimal contrast bolus timing. COMMENTS: Consistent with the [employer]'s Incidental Findings Committee white paper (J Am Trupti Radiol 2018): Any incidental renal lesion less than 1 cm or classified as too small to characterize, or any incidental cystic renal lesion characterized as simple-appearing, is likely benign. No follow-up imaging is recommended for these lesions per consensus recommendations based on imaging criteria. Radiation Dose CTDIVOL = (mGy): DLP = 1058.18 (mGy-cm)
[2021-05-31 20:49] LABS: Alanine Aminotransferase 39 U/L (0-41); Albumin Level 4.1 g/dL (3.5-5.2); Alkaline Phosphatase 111 IU/L (40-130); Aspartate Amino Transferase 52 U/L (0-40); Blood Urea Nitrogen 14 mg/dL (8-23); Carbon Dioxide 28 mmol/L (22-29); Chloride 99 mmol/L (98-107); Globulin 3.2 g/dL (1.3-4.6); Glucose 191 mg/dL (65-115); NT Pro B Type Natriuretic Pept 134 pg/mL (0-125); Osmolality Calculated 294 mOsm/kg (285-295); Sodium 139 mmol/L (136-145); Total Bilirubin 0.3 mg/dL (0.15-1.2); Total Protein 7.3 g/dL (6.6-8.7)
[2021-05-31 20:54] LABS: Troponin(5th) Baseline 22 ng/L (0-15)
[2021-05-31 20:57] LABS: Anion Gap 16.2 (5-19); Potassium 4.2 mmol/L (3.5-5.1)
[2021-05-31 21:11] LABS: SARS Covid-2 Antigen Negative (Negative)
[2021-05-31] MEDS: morphine 4 mg/mL SDV 1 mL IVP ×3 (21:27→23:49)
[2021-05-31] MEDS: iohexol 350 mg/mL 100 mL Btl IV (22:01)
--- NOTE | 2021-05-31 22:03 | ECG_ITS ---
[facility] Test Date: 2021-05-31 Pat Name: Aamir Santa Department: Room: Gender: Male Nutrition Aide: : 1945 Requested By: Camden Garcia Order Number: [id number] Shey MD: Kevin Ghosh M.D. Measurements Intervals [place] Rate: 91 P: 52 WA: 200 QRS: 33 QRSD: 102 T: 51 QT: 369 QTc: 454 Interpretive Statements SINUS RHYTHM Compared to ECG 05/31/2021 20:16:10 Myocardial infarct finding no longer present Electronically Signed On 06-01-2021 18:14:33 CDT by Kevin Ghosh M.D. [id number] [email or web address]
[2021-05-31 22:46] LABS: Troponin 5 2HR 21.74 ng/L (0-15)
[2021-05-31 22:49] LABS: Troponin 5 2HR Delta -0.26 ABS# (0-10)
[2021-05-31 23:14] LABS: Lipase 17 U/L (13-60)
--- NOTE | 2021-05-31 23:51 | P.HP_ITS ---
Providers/Chief Complaint Admitting Physician: Fermin Cortes MD Primary Care Provider: FLAVIA Lamb Chief Complaint: Chest Pains History of Present Illness Aamir Santa is a 75 year old male with past medical history of noninsulin- dependent type 2 diabetes mellitus, CAD status post stenting x5 on Plavix, history of pulmonary emboli on Eliquis, hypertension, hyperlipidemia, COPD, former smoker who presents to [facility] due to chest pain. Patient tells me that roughly a week ago he got both the shingles vaccine and the pneumonia vaccine, since then he has had some diffuse anterior chest pain, typically in the right side of the chest going to the right arm, sometimes a sharp sometimes ascending-like pain, lasting a few minutes, associated with shortness of breath, and lightheadedness, no nausea, no vomiting. Patient denies any chest wall tenderness, no pain with range of motion of right arm, no heavy lifting, no injuries. Patient tells him throughout the week the pain became more steady, more severe, associate with more shortness of breath so he came to emergency room for further evaluation. In the emergency room he had a CT angiogram of the chest which was unremarkable for pulmonary emboli. First 2 troponins were unremarkable, EKG no acute ST-T wave changes, patient chest pain improved with 2 nitro, in front of me patient had 2 episodes of chest wall spasms, spasm of the right chest wall, lasting a few seconds, Review of Systems Const: Denies: fever(s), chills, fatigue or malaise Eyes: Denies: change in vision or blurry vision ENMT: Denies: throat pain or nasal congestion Card: Reports: chest pain and lightheadedness; Denies: palpitations, irregular heart rhythm, edema, syncope or pre-syncope Resp: Reports: dyspnea; Denies: productive cough, non-productive cough or wheezing GI: Denies: abdominal pain, nausea, vomiting, hematemesis, diarrhea, constipation, hematochezia or melena : Denies: flank pain, difficulty urinating, dysuria or urinary frequency Musc: Denies: neck pain or back pain Skin/Breast: Denies: rash Neuro: Denies: headache(s), dizziness or vertigo Endo: Denies: polyuria or polydipsia Medications/Allergies Home Medications Medication Instructions Recorded Confirmed Last Taken Type albuterol sulfate 90 mcg/actuation 2 puff INHALATION Q6H PRN 02/07/20 05/30/21 Unknown History aerosol inhaler apixaban 5 mg tablet 5 mg PO BID 02/07/20 05/30/21 Unknown History clopidogrel 75 mg tablet 75 mg PO DAILY 02/07/20 05/30/21 Unknown History metformin 1,000 mg tablet 1,000 mg PO BID 02/07/20 05/30/21 Unknown History pantoprazole 40 mg tablet,delayed 40 mg PO DAILY 02/07/20 05/30/21 Unknown History release tiotropium bromide 18 mcg capsule 1 cap INHALATION DAILY 02/07/20 05/30/21 Unknown History with inhalation device metoprolol tartrate 50 mg tablet 75 mg PO BID tab 11/29/20 05/30/21 Unknown History glipizide 5 mg tablet 5 mg PO BID 04/04/21 05/30/21 Unknown History hydrocodone 5 mg-acetaminophen 325 1 tab PO Q6H PRN 3 Days #12 tab 04/25/21 05/30/21 Unknown Rx mg tablet hydrocortisone 2.5 % topical cream 1 applic TOPICAL BID PRN 04/25/21 05/30/21 Unknown History nystatin 100,000 unit/gram topical 1 applic TOPICAL DAILY 04/25/21 05/30/21 Unknown History cream tamsulosin 0.4 mg capsule 0.4 mg PO DAILY 04/25/21 04/25/21 Unknown History Allergies Allergy/AdvReac Type Severity Reaction Status Date / Time No Known Allergies Allergy Verified 05/30/21 11:30 PFSH Acute PFSH: Medical History Anticoagulant long-term use Aortic insufficiency with aortic stenosis ASHD (arteriosclerotic heart disease) Balanitis COPD (chronic obstructive pulmonary disease) Dyslipidemia GERD (gastroesophageal reflux disease) HTN (hypertension) Hx pulmonary embolism THANG (obstructive sleep apnea) Statin intolerance Tobacco abuse Surgical History S/P PTCA (percutaneous transluminal coronary angioplasty) S/P tonsillectomy Family History Brother Cancer Diabetes Hypertension Myocardial infarction Mother CAD (coronary artery disease) Diabetes Hypertension Myocardial infarction Father CAD (coronary artery disease) Stroke Hypertension Myocardial infarction Sister CAD (coronary artery disease) Social History Alcohol intake: current Household members: spouse Marital status: Vitals/I&O/Wt Last Vital Signs Temp 98.3 F 05/31/21 20:12 Pulse 96 05/31/21 21:15 Resp 20 H 05/31/21 23:49 BP 147/66 05/31/21 21:30 Pulse Ox 92 05/31/21 21:15 Weight last 48 hrs Weight 104.326 kg Physical Exam Const: COMMON NORMALS: no acute distress and patient oriented x3 HENMT: COMMON NORMALS: normocephalic HEAD & SCALP: normocephalic Eye: COMMON NORMALS: Equal, round and reactive pupils present GENERAL EYE: appearance normal, both eyes and all related structures PUPIL: Yes Equal, round and reactive pupils present Neck/C-Spine: COMMON NORMALS: full ROM and no lymphadenopathy THYROID: Thyroid normal Lymph: LYMPHATIC: no lymphadenopathy noted Resp: COMMON NORMALS: normal respiratory effort, No retractions, No use of accessory muscles and clear to auscultation bilaterally AUSCULTATION: clear to auscultation bilaterally Cardio: COMMON NORMALS: regular rate, regular rhythm, S1 normal heart sound present, S2 normal heart sound present, No gallops present (Cardio), No clicks present (Cardio) and No murmurs present (Cardio) RATE: regular rate RHYTHM: regular rhythm HEART SOUNDS: S1 normal heart sound present and S2 normal heart sound present GI: COMMON NORMALS: Normal to inspection, nondistended, normoactive bowel sounds present, Soft to palpation, non-tender and No hepatosplenomegaly present PALPATION: Yes Soft to palpation and Yes No hepatosplenomegaly present Extremity: COMMON NORMALS: normal to inspection and full ROM NARRATIVE EXTREMITY EXAM: 1+ pitting edema bilaterally Neuro: COMMON NORMALS: patient oriented x3, CN's II-XII intact bilaterally, moves all extremities and no focal motor deficits Psych: COMMON NORMALS: mental status grossly normal, Normal thought process present and cooperative THOUGHT PROCESS: Normal thought process present Data : 05/31/21 20:10 05/31/21 20:10 A&P Assessment and plan (1) Chest pain: -CT angiogram of the chest was unremarkable for pulmonary emboli -Baseline troponin is 22, 121 and 21.74, BNP 134 -EKG no acute ST-T wave changes -2 episodes of chest pain in the emergency room, resolved with nitro -During my examination, patient was having more chest wall spasms, originating in the right side of the neck, lasting a few seconds Plan: -Admit to cardiac stepdown unit -Monitor for chest pain -Serial EKGs, serial troponins, telemetry monitoring -Aspirin, Plavix, statin, Eliquis, beta-janeen -Cardiac echocardiogram -We will try Flexeril for muscle spasms -If chest pains persist, or upward trending troponin or EKG changes will consider inpatient evaluation with stress testing Type 2 diabetes mellitus, continue low-dose sliding scale Hyperlipidemia, has statin intolerance, will try low-dose atorvastatin COPD, former smoker, daily albuterol, continue home inhaler History of pulmonary embolism, continue Eliquis History of aortic insufficiency with aortic stenosis, cardiac echo as above Bilateral extreme edema, plus, patient tells me he takes Lasix at home, is unsure of the dose, start low-dose Lasix 40 mg daily Full code Eliquis for DVT prophylaxis Status: Acute Qualifiers: Chest pain type: unspecified Qualified Code(s): R07.9 - Chest pain, unspecified (2) HTN (hypertension): Status: Acute (3) ASHD (arteriosclerotic heart disease): Status: Acute (4) Anticoagulant long-term use: Status: Chronic (5) THANG (obstructive sleep apnea): Status: Acute (6) Aortic insufficiency with aortic stenosis: Status: Acute (7) Hx pulmonary embolism: Status: Chronic Attestations Medical Necessity Statement*: Patient requires hospitalization, outpatient with observation, for chest pain Coding Level of Care Code Acute It Program Manager for [facility] Fwd Diagnoses Chest pain R07.9 Chest pain type: unspecified HTN (hypertension) I10 ASHD (arteriosclerotic heart disease) I25.10 Anticoagulant long-term use Z79.01 THANG (obstructive sleep apnea) G47.33 Aortic insufficiency with aortic stenosis I35.2 Hx pulmonary embolism Z86.711
[2021-06-01] VITALS (43 sets, daily range): BP systolic 85–177; BP diastolic 58–89; PULSE 70–125; RESP 0–24; TEMP 36.5–36.9; O2SAT 90–98
[2021-06-01] MEDS: cyclobenzaprine 10 mg Tablet 5 MG PO (00:24)
--- NOTE | 2021-06-01 00:35 | USCV_ITS ---
Aamir Santa Age: 75 Gender: M : 1945 Exam Date: 06/01/2021 06:26 Ordering Phys: Fermin Cortes MD Technologist: Juliette Dee [place] [facility] [place]: Chest pain BP: 164 / 71 HR: 76 Rhythm: Sinus Technical Quality: Adequate MEASUREMENTS (Male / Female) Normal Values 2D ECHO LV Diastolic Diameter PLAX 3.9 cm 4.2 - 5.9 / 3.9 - 5.3 cm LV Systolic Diameter PLAX 2.3 cm LV Chamber Size 4.1 cm IVS Diastolic Thickness 1.8 cm 0.6 - 1.0 / 0.6 - 0.9 cm IVS Systolic Thickness 2.1 cm LVPW Diastolic Thickness 1.0 cm 0.6 - 1.0 / 0.6 - 0.9 cm LVPW Systolic Thickness 1.4 cm RV Chamber Size 2.0 cm LVOT Diameter 2.1 cm LV Ejection Fraction 2D Teich 72.9 % LV Ejection Fraction MOD 2C 71.9 % LV Ejection Fraction 2C AL 75.2 % LA Diameter 3.7 cm LA Width 2.1 cm LA Height 5.5 cm RA Width 2.1 cm RA Height 4.6 cm Aorta at Sinotubular Diameter 2.5 cm M-MODE LV Diastolic Diameter MM 5.3 cm 4.2 - 5.9 / 3.9 - 5.3 cm LV Systolic Diameter MM 3.5 cm LV Ejection Fraction MM Teich 62.6 % IVS Diastolic Thickness MM 2.2 cm 0.6 - 1.0 / 0.6 - 0.9 cm IVS Systolic Thickness MM 2.6 cm LVPW Diastolic Thickness MM 1.9 cm 0.6 - 1.0 / 0.6 - 0.9 cm LVPW Systolic Thickness MM 2.7 cm RV Diastolic Diameter MM 1.0 cm Aortic Annulus Diameter 3.6 cm LA Ao Ratio MM 1.3 MV E Point Septal Separation 0.6 cm DOPPLER AV Peak Velocity 151.0 cm/s LVOT Peak Velocity 100.0 cm/s AV Area Cont Eq vti 2.4 cm squared AV Area Cont Eq pk 2.3 cm squared MV Area PHT 5.0 cm squared Mitral E to A Ratio 0.8 MV E' Velocity 44.0 cm/s Mitral E to MV E' Ratio 9.4 Mitral E to LV E' Lateral Ratio 8.9 Mitral E to LV E' Septal Ratio 10.0 TV Peak E Velocity 52.0 cm/s Right Atrial Pressure 3.0 mmHg PV Peak Velocity 81.0 cm/s RV Acceleration Time 0.1 s RV Ejection Time 0.3 s RV AcT/ET 0.3 FINDINGS Left Ventricle Normal left ventricular size and systolic function, EF 63 %. Mild left ventricular hypertrophy. Grade I/IV diastolic dysfunction (abnormal relaxation filling pattern), normal to mildly elevated filling pressures. Right Ventricle The right ventricle is normal in size and function. Right Atrium The right atrium is normal in size. Left Atrium The left atrium is normal in size. Mitral Valve Thickened mitral valve. Trace mitral valve regurgitation. Aortic Valve Thickened aortic valve. Tricuspid Valve No gross abnormalities noted Pulmonic Valve No gross abnormalities noted Pericardium Normal pericardium without effusion. Aorta Normal ascending aorta dimension. CONCLUSIONS Normal left ventricular size and systolic function, EF 63 %. Mild left ventricular hypertrophy. Grade I/IV diastolic dysfunction (abnormal relaxation filling pattern), normal to mildly elevated filling pressures. Thickened mitral valve. Thickened aortic valve. Trace mitral valve regurgitation. There is no pericardial effusion. There are no intracardiac masses. No previous study is available for comparison. Dr Kevin Ghosh MD FACC (Electronically Signed) Final Date: 01 June 2021 16:03 S
[2021-06-01] MEDS: atorvastatin 40 mg Tablet 20 MG PO (01:04)
[2021-06-01] MEDS: FUROsemide 40 mg Tablet PO (01:05)
[2021-06-01 02:58] LABS: Troponin 5 6HR 21.44 ng/L (0-15)
[2021-06-01 03:03] LABS: NT Pro B Type Natriuretic Pept 133 pg/mL (0-125)
[2021-06-01 03:05] LABS: Troponin 5 6HR Delta -0.56 ng/L (0-12)
--- NOTE | 2021-06-01 06:17 | PC.NURSE ---
patient has had a very good night with no complaints of chest pain, patient has a pleasant affect and is sitting up in bed waiting for breakfast.
[2021-06-01] MEDS: apixaban 5 mg Tablet PO ×2 (08:54→17:42)
[2021-06-01] MEDS: metoprolol tartrate 50 mg Tablet 75 MG PO ×2 (08:54→17:42)
[2021-06-01] MEDS: aspirin 81 mg EC Tablet PO (08:54)
[2021-06-01] MEDS: tamsulosin 0.4 mg Capsule PO (08:54)
[2021-06-01] MEDS: pantoprazole DR 40 mg Tablet PO (08:54)
[2021-06-01] MEDS: clopidogrel 75 mg Tablet PO (08:54)
--- NOTE | 2021-06-01 10:36 | ECG_ITS ---
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 Measurements Intervals [place] Rate: 73 P: 44 MN: 216 QRS: 52 QRSD: 108 T: 4 QT: 408 QTc: 450 Interpretive Statements SINUS RHYTHM WITH FIRST DEGREE AV BLOCK POSSIBLE INFERIOR MYOCARDIAL INFARCTION , PROBABLY OLD [30 ms Q WAVE IN II/aVF] Compared to ECG 05/31/2021 22:19:24 First degree AV block now present Myocardial infarct finding now present Electronically Signed On 06-01-2021 18:05:46 CDT by Kevin Ghosh M.D. [id number]
[2021-06-01] MEDS: nitroglycerin 0.4 mg sublingual Tablet SUBLINGUAL (11:34)
[2021-06-01 11:37] LABS: Troponin T (5th) Once 20 ng/L (0-15)
--- NOTE | 2021-06-01 12:04 | PM.PN ---
Subjective Subjective: Interval history: Patient was seen and examined this morning. He continues to complain of chest pain on the right side including his right shoulder. Sometimes he states that it hurts when he takes a deep breath but mostly it hurts when he moves his arm around or tries to move in bed. The pain seems to be more related to movement but few hours later patient stated that the pain is constant regardless of him moving around. EKG was done and a troponin was also drawn. Patient was given sublingual nitro which did not relieve the pain. However yesterday in the ER pain was relieved with nitro. He was also given a lidocaine patch thereafter including 1 mg morphine. He was seen 3 times since morning at different intervals and 2 or 3 times he stated he was still having chest pain. He denied the pain radiating anywhere. Denied feeling short of breath denied abdominal pain denied any diaphoresis. Pain does not get relieved upon leaning forward. Patient does state however that he feels constipated. He states he has had a NE in the past and this pain feels a little bit different than that. He is not sure if it is his heart causing this. His last stress test was a nuclear stress test which was years ago. 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 On review of records it seems he saw Cynthia Roberts few months ago. Patient denies any strenuous activity in the recent past and is retired. Vitals/I&O/Wt Last Vital Signs Temp 97.7 F 06/01/21 11:25 Pulse 75 06/01/21 11:25 Resp 21 H 06/01/21 11:25 BP 168/81 06/01/21 11:25 Pulse Ox 94 06/01/21 11:25 05/31/21 06/01/21 06/01/21 22:59 06:59 14:59 Intake Total 360 / 360 Output Total 200 / 200 1150 / 1150 Balance -200 / -200 -790 / -790 Weight last 48 hrs Weight 104.326 kg Physical Exam Narrative: EXAM NARRATIVE: General: Alert oriented x3, patient seen sitting up in bed appearing a little uncomfortable. When talking to him about his pain he does tend to grab onto his right shoulder. Pain is reproducible when his arm is moved around. At times however he says it also occurs without any movement. HEENT: Normocephalic, atraumatic, EOMI, breathing 2 L nasal cannula. Cardio: Regular rate rhythm, normal S1-S2, no murmurs rubs gallops, Respiratory: Good bilateral air entry, no wheezes no rhonchi appreciated GI: Abdomen soft, nontender, obese rounded abdomen, bowel sounds + Behavior: Appropriate and cooperative Extremities: Chronic venous stasis changes, trace to 1+ edema up to knees. Musculoskeletal: Rotator cuff range of motion limited due to pain radiating into right shoulder, able to elevate arm up to 90 degrees but above that pain is elicited. Data : 05/31/21 20:10 05/31/21 20:10 A&P Assessment and plan (1) Chest pain: -CT angiogram of the chest was unremarkable for pulmonary emboli -Baseline troponin is 22, 121 and 21.74, BNP 134, repeat troponin today 20, -EKG no acute ST-T wave changes -2 episodes of chest pain in the emergency room, resolved with nitro Patient was seen several times this morning. He continues to have chest pain. It was not relieved by nitro. He was also given morphine and lidocaine patch. He states he is still having pain it is about 2-3 out of 10. -Aspirin, Plavix, statin, Eliquis, beta-janeen -Cardiac echocardiogram has been performed, report pending. -Flexeril was ordered by the night hospitalist. Patient states it has not helped him so far. Will use morphine as needed and try Toradol due to anti-inflammatory effects. I have also ordered a lidocaine patch for him. He did say that the pain improved a little bit. Cardiology will see the patient in consultation today due to persistent chest pain and his extensive cardiac history.. Dr. Ghosh has been updated. Dr. Rodriguez is also aware of the patient. Type 2 diabetes mellitus, continue low-dose sliding scale Hyperlipidemia, has statin intolerance, will try low-dose atorvastatin COPD, former smoker, daily albuterol, continue home inhaler History of pulmonary embolism, continue Eliquis History of aortic insufficiency with aortic stenosis, cardiac echo as above Bilateral extreme edema, plus, patient tells me he takes Lasix at home, is unsure of the dose, start low-dose Lasix 40 mg daily Full code Eliquis for DVT prophylaxis Status: Acute Qualifiers: Chest pain type: unspecified Qualified Code(s): R07.9 - Chest pain, unspecified (2) HTN (hypertension): Status: Acute (3) ASHD (arteriosclerotic heart disease): Status: Acute (4) Aortic insufficiency with aortic stenosis: Status: Acute (5) Hx pulmonary embolism: Status: Chronic (6) COPD (chronic obstructive pulmonary disease): Status: Acute (7) Anticoagulant long-term use: Status: Chronic Attestations Medical Necessity Statement*: Continues to have chest pain. Cardiology consulted. Time Spent in Patient Care: Greater than 35 minutes Patient was seen several times throughout the morning. Coding Level of Care Code Acute Metal Or Wood Blocker for [facility] Fwd Diagnoses Chest pain R07.9 Chest pain type: unspecified HTN (hypertension) I10 ASHD (arteriosclerotic heart disease) I25.10 Aortic insufficiency with aortic stenosis I35.2 Hx pulmonary embolism Z86.711 COPD (chronic obstructive pulmonary disease) J44.9 Anticoagulant long-term use Z79.01
[2021-06-01] MEDS: morphine 4 mg/mL SDV 1 mL 1 MG IVP ×2 (13:27→21:54)
[2021-06-01] MEDS: lidocaine 5% Patch 1 PATCH TOPICAL (14:18)
--- NOTE | 2021-06-01 15:39 | PM.CONSULT ---
Providers/Reason For Consult Consulting Physician/Specialty*: KALIN Ghosh MD/cardiology Reason for Consult*: Patient is a chest pain, history of atherosclerotic heart disease and previous PCI's Attending Physician: Antoinette Yusuf MD Primary Care Provider: FLAVIA Lamb History of Present Illness History of Present Illness Aamir Santa is a 75 year old male with a history of atherosclerotic heart disease, status post myocardial infarction in 2004, status post multiple PCI's since the myocardial infarction, now presenting with 1 week history of chest pain. Patient is complaining of a pleuritic type of pain in the right mammary region. The pain is more or less constant with intermittent waxing and waning. The pain gets worse with a deep inspiration or chest wall movements. He has no associated fever, chills or cough. No palpitation, dizziness or syncopal episodes. No nausea, vomiting or sweating. He has since the catching type of pain with deep inspiration. He also has difficulty in moving the right shoulder especially with rotatory movements. Several months ago, he had severe pain in the neck region and was diagnosed with trigeminal neuralgia. He had the first myocardial infarction 2003 while being in [place]. He had cardiac catheterization followed by PCI. He had a repeat PCI in a different hospital in the same town after couple of years later. Details are not available. He moved to the [facility] 5 years ago. In 2017, he presented to the [facility] with a features of a non-ST elevation myocardial infarction. He underwent a cardiac colorization followed by PCI of the RCA lesion at that time. A stents in the mid LAD and right coronary artery were found to be patent with minimal in-stent narrowing. The cardiac catheterization findings are as follows. High-grade stenosis of the proximal to mid RCA with a total occlusion of distal RCA. Grade 2 [id number] collaterals. Patent stented segment of the mid LAD and the RCA. Mild to moderate diffuse disease in the other vessels. Elevated LVEDP. Ejection fraction of 50%. Moderately hypokinesia of the basal and mid inferior wall segments. Patient has not had any recent cardiac work-up. Review of Systems Narrative: Possibly of normal size possibly of normal size CONSTITUTIONAL: No fever or chills. EYES: No blurring of vision or other visual disturbances lately. ENT: No hoarseness of voice, auditory disturbances or sore throat. CARDIOVASCULAR: As mentioned above. RESPIRATORY: History of COPD/obstructive sleep apnea GASTROINTESTINAL: No hematemesis or melena. GENITOURINARY: No dysuria or hematuria. INTEGUMENTARY: No skin rashes or history of skin cancer. NEURO: History of trigeminal neuralgia PSYCHIATRIC: No history of psychosis or major depression. HEMATOLOGIC: No bleeding disorders or significant anemia. ENDOCRINE: No history of polyuria or polydipsia. MUSCULOSKELETAL: No recent joint pain or swelling. ALLERGY/IMMUNOLOGY: As mentioned above. Meds/Allergies Home Medications and Allergies Home Medications Medication Instructions Recorded Confirmed Last Taken Type albuterol sulfate 90 mcg/actuation 2 puff INHALATION Q6H PRN 02/07/20 06/01/21 Unknown History aerosol inhaler apixaban 5 mg tablet 5 mg PO BID 02/07/20 06/01/21 Unknown History clopidogrel 75 mg tablet 75 mg PO DAILY 02/07/20 06/01/21 Unknown History metformin 1,000 mg tablet 1,000 mg PO BID 02/07/20 06/01/21 Unknown History pantoprazole 40 mg tablet,delayed 40 mg PO DAILY 02/07/20 06/01/21 Unknown History release tiotropium bromide 18 mcg capsule 1 cap INHALATION DAILY 02/07/20 06/01/21 Unknown History with inhalation device metoprolol tartrate 50 mg tablet 75 mg PO BID tab 11/29/20 06/01/21 Unknown History glipizide 5 mg tablet 5 mg PO BID 04/04/21 06/01/21 Unknown History hydrocodone 5 mg-acetaminophen 325 1 tab PO Q6H PRN 3 Days #12 tab 04/25/21 06/01/21 Unknown Rx mg tablet hydrocortisone 2.5 % topical cream 1 applic TOPICAL BID PRN 04/25/21 06/01/21 Unknown History nystatin 100,000 unit/gram topical 1 applic TOPICAL DAILY 04/25/21 06/01/21 Unknown History cream tamsulosin 0.4 mg capsule 0.4 mg PO DAILY 04/25/21 06/01/21 Unknown History Allergies Allergy/AdvReac Type Severity Reaction Status Date / Time No Known Allergies Allergy Verified 05/30/21 11:30 Current Medications Current Medications Generic Name Dose Route Start Last Admin Trade Name Freq PRN Reason Stop Dose Admin Apixaban 5 mg 06/01/21 09:00 06/01/21 08:54 Apixaban 5 Mg Tablet PO 5 mg BID BRITNEY Administration Aspirin 81 mg 06/01/21 09:00 06/01/21 08:54 Aspirin 81 Mg Ec Tablet PO 81 mg DAILY BRITNEY Administration Atorvastatin Calcium 20 mg 06/01/21 00:35 06/01/21 01:04 Atorvastatin 40 Mg Tablet PO 20 mg Q24H BRITNEY Administration Clopidogrel Bisulfate 75 mg 06/01/21 09:00 06/01/21 08:54 Clopidogrel 75 Mg Tablet PO 75 mg DAILY BRITNEY Administration Furosemide 40 mg 06/01/21 00:35 06/01/21 01:05 Furosemide 40 Mg Tablet PO 40 mg Q24H BRITNEY Administration Lidocaine 1 patch 06/01/21 14:00 06/01/21 14:18 Lidocaine 5% Patch TOPICAL 1 patch [id number] BRITNEY Administration Metoprolol Tartrate 75 mg 06/01/21 09:00 06/01/21 08:54 Metoprolol Tartrate 50 Mg Tablet PO 75 mg BID BRITNEY Administration Nitroglycerin 0.4 mg 05/31/21 20:10 05/31/21 20:45 Nitroglycerin 0.4 Mg Sublingual Tablet SUBLINGUAL 1 tab Q5M PRN Administration CHEST PAIN Pantoprazole Sodium 40 mg 06/01/21 09:00 06/01/21 08:[address] 40 Mg Tablet PO 40 mg DAILY BRITNEY Administration Tamsulosin HCl 0.4 mg 06/01/21 09:00 06/01/21 08:54 Tamsulosin 0.4 Mg Capsule PO 0.4 mg DAILY BRITNEY Administration Tiotropium [place] 18 mcg 06/01/21 09:00 06/01/21 09:47 Tiotropium 18 Mcg Mdi INHALATION Not Given DAILY BRITNEY PFSH Acute PFSH: Medical History Anticoagulant long-term use Aortic insufficiency with aortic stenosis ASHD (arteriosclerotic heart disease) Balanitis COPD (chronic obstructive pulmonary disease) Dyslipidemia GERD (gastroesophageal reflux disease) HTN (hypertension) Hx pulmonary embolism THANG (obstructive sleep apnea) Statin intolerance Tobacco abuse Surgical History S/P PTCA (percutaneous transluminal coronary angioplasty) S/P tonsillectomy Family History Brother Cancer Diabetes Hypertension Myocardial infarction Mother CAD (coronary artery disease) Diabetes Hypertension Myocardial infarction Father CAD (coronary artery disease) Stroke Hypertension Myocardial infarction Sister CAD (coronary artery disease) Social History Alcohol intake: current Household members: spouse Marital status: Vitals/I&O/Wt Last Vital Signs Temp 98.5 F 06/01/21 15:19 Pulse 75 06/01/21 15:19 Resp 20 H 06/01/21 15:19 BP 164/83 06/01/21 15:19 Pulse Ox 90 06/01/21 15:19 06/01/21 06/01/21 06/01/21 06:59 14:59 22:59 Intake Total 1080 / 1080 Output Total 200 / 200 1850 / 1850 Balance -200 / -200 -770 / -770 Weight last 48 hrs Weight 230 lb Physical Exam Narrative: EXAM NARRATIVE: GENERAL: The patient is alert and oriented times three. Not in any acute distress. Moderately obese HEENT: No significant pallor, icterus or lymphadenopathy. The pupils are reactant to light. Oral cavity: There are no mucous membrane lesions. Funduscopic examination: The fundus is not visualized NECK: Trachea appears to be central. No masses noted. No JVD or thyromegaly appreciated. No carotid bruit. RESPIRATORY: Chest is symmetrical. No intercostals muscle retraction or any accessory muscle activation. There is no chest wall tenderness. Breath sounds are heard bilaterally. No rales or rhonchi heard. No evidence of any consolidation. BREASTS: Deferred. HEART: The PMI could not be palpated. No other palpable precordial events. No palpable precordial events. S1 and S2 are normal. No S3 or S4 heard. No pericardial rub or any click heard. ABDOMEN: No vessel pulsations or distention. No tenderness. No organomegaly appreciated. No abdominal bruit. Bowel sounds are normally heard. : Deferred. RECTAL: Deferred. LYMPHATIC: No lymphadenopathy noted in the neck or groin. EXTREMITIES: He has features of chronic venous stasis bilaterally. Hyperpigmented skin with some healing superficial ulcers. Peripheral pulses are palpable but weak bilaterally MUSCULOSKELETAL: History movements of the right shoulder is limited. No acute joint deformities or swelling SKIN: There are no significant scars or skin rash noted. NEUROPSYCHIATRIC: The patient is alert and oriented x3. Appears to be in a good mood. The higher functions are grossly within normal limits. No tremors or rigidity noted. Data Labs: Other Labs: Laboratory Last Values WBC 12.8 10^3/uL (4.0 -10.0) H 05/31/21 20:10 RBC 4.53 10^6/uL (4.1 -5.3) 05/31/21 20:10 Hgb 13.4 g/dL (11.7-1 6.6) 05/31/21 20:10 Hct 41.6 % (42.0-52.0 ) L 05/31/21 20:10 MCV 91.8 fl (80-94) 05/31/21 20:10 MCH 29.6 pg (28.0-34. 0) 05/31/21 20:10 MCHC 32.2 g/dL (30.0-3 6.0) 05/31/21 20:10 RDW 13.6 % (12.1-15.1 ) 05/31/21 20:10 Plt Count 405 10^3/cmm (130 -400) H 05/31/21 20:10 MPV 9.3 fL (7.4-10.4) 05/31/21 20:10 Neut % (Auto) 79.4 % 05/31/21 20:10 Lymph % (Auto) 9.5 % 05/31/21 20:10 [place] % (Auto) 8.1 % 05/31/21 20:10 Eos % (Auto) 2.3 % 05/31/21 20:10 Baso % (Auto) 0.2 % 05/31/21 20:10 Neut # (Auto) 10.17 10^3/uL (1. 8-7.7) H 05/31/21 20:10 Lymph # (Auto) 1.2 10^3/uL (0.8- 4.8) 05/31/21 20:10 [place] # (Auto) 1.0 10^3/uL (0.2- 0.9) H 05/31/21 20:10 Eos # (Auto) 0.3 10^3/uL (0.0- 0.8) 05/31/21 20:10 Baso # (Auto) 0.0 10^3/uL (0.0- 0.1) 05/31/21 20:10 Nucleated RBC % (a uto) 0 % 05/31/21 20:10 Nucleated RBCs # 0.0 /100WBC 05/31/21 20:10 PT 14.00 SECONDS (12 .1-14.9) 05/31/21 20:10 INR 1.05 (0.8-1.2) 05/31/21 20:10 D-Dimer 1.65 ug/mIFEU (0- 0.59) H 05/31/21 20:10 Sodium 139 mmol/L (136-1 45) 05/31/21 20:10 Potassium 4.2 mmol/L (3.5-5 .1) 05/31/21 20:10 Chloride 99 mmol/L (98-107 ) 05/31/21 20:10 Carbon Dioxide 28 mmol/L (22-29) 05/31/21 20:10 Anion Gap 16.2 (5-19) 05/31/21 20:10 BUN 14 mg/dL (8-23) 05/31/21 20:10 Creatinine 0.9 mg/dL (0.7-1. 2) 05/31/21 20:10 GFR Calculation Not Reportable 05/31/21 20:10 Glucose 191 mg/dL (65-115 ) H 05/31/21 20:10 Calculated Osmolal ity 294 mOsm/kg (285- 295) 05/31/21 20:10 Calcium 9.0 mg/dL (8.5-10 .5) 05/31/21 20:10 Total Bilirubin 0.3 mg/dL (0.15-1 .2) 05/31/21 20:10 AST 52 U/L (0-40) H 05/31/21 20:10 ALT 39 U/L (0-41) 05/31/21 20:10 Alkaline Phosphata se 111 IU/L (40-130) 05/31/21 20:10 Troponin T Gen 5 n g/L 20 ng/L (0-15) H 06/01/21 11:10 Troponin T Baselin e 22 ng/L (0-15) H 05/31/21 20:10 Troponin T 120 Min benigno 21.74 ng/L (0-15) H 05/31/21 22:15 Delta Troponin T -0.26 ABS# (0-10) L 05/31/21 22:15 Troponin T Hi Sens 6Hr 21.44 ng/L (0-15) H 06/01/21 02:00 Troponin T Hi Sens 6Hr Delta -0.56 ng/L (0-12) L 06/01/21 02:00 NT-Pro-B Natriuret Pep 133 pg/mL (0-125) H 06/01/21 02:00 Total Protein 7.3 g/dL (6.6-8.7 ) 05/31/21 20:10 Albumin 4.1 g/dL (3.5-5.2 ) 05/31/21 20:10 Globulin 3.2 g/dL (1.3-4.6 ) 05/31/21 20:10 Lipase 17 U/L (13-60) 05/31/21 22:15 SARS-CoV-2 Ag (Rap id) Negative (Negati ve) 05/31/21 20:35 Imaging^: Echo: My impression: Echocardiogram done on 05/31/2021 Normal left ventricular size and systolic function, EF 63 %. Mild left ventricular hypertrophy. Grade I/IV diastolic dysfunction (abnormal relaxation filling pattern), normal to mildly elevated filling pressures. Thickened mitral valve. Thickened aortic valve. Trace mitral valve regurgitation. There is no pericardial effusion. There are no intracardiac masses. No previous study is available for comparison. CXR: My impression: Normal cardiac telemetry. No acute lung infiltrate. No other acute pathology noted CTA Chest: My impression: 1. No evidence for pulmonary embolus in the larger pulmonary arteries. 2. Evaluation of the smaller artery branches is limited due to suboptimal contrast bolus timing. EKG^: EKG 1: My Interpretation: Normal sinus rhythm with the first degree AV block. Nonspecific T wave changes in the inferior leads. Possible old inferior wall myocardial infarction. A&P Assessment and plan (1) Chest pain: The patient's chest pain appears to be musculoskeletal /neurological. Some form of compressive neuropathy causing this is a consideration. Most likely this is noncardiac. There is no evidence of any acute ischemia or myocardial injury at this point. His EKG and echocardiogram are unremarkable. A slightly elevated baseline troponin T, could be a type II [place]. Status: Acute Qualifiers: Chest pain type: chest pain on breathing Qualified Code(s): R07.1 - Chest pain on breathing (2) Atherosclerotic heart disease of [place] coronary artery with other forms of angina pectoris: Patient apparently had a multiple myocardial infarctions and PCI's in the past. Since he has not had any recent functional evaluation of the coronary status, a myocardial perfusion imaging may be appropriate to evaluate for any underlying coronary ischemia. Since he is not able to walk on the treadmill, a chemical stress test would be appropriate. Status: Acute (3) Benign essential hypertension with target blood pressure below 140/90: Currently the blood pressure is a stage II. For better control of the blood pressure, I may start him on amlodipine 5 mg p.o. daily in addition to the metoprolol. Other medications may be continued. Status: Acute (4) Hx pulmonary embolism: He is on long-term oral anticoagulation which may be continued. Status: Chronic Additional A&P Information Other problems are COPD/reactive airway disease, on bronchodilators. Currently seems to be stable. History of obstructive sleep apnea. ? Trigeminal neuralgia Statin intolerant Patient may be tried on some anti-inflammatory medications /muscle relaxants. May consider work-up for some form of compressive neuropathy Based on his clinical progress and the results of the above, further recommendations will be made. 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
[2021-06-01] MEDS: amlodipine 5 mg Tablet PO (17:42)
--- NOTE | 2021-06-01 21:36 | ECG_ITS ---
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
--- NOTE | 2021-06-01 21:37 | PC.NURSE ---
Patient reports chest pain. EKG ordered. Patient refusing SL nitro saying that it doesn't work. Patient asking for Morphine. Dr. Cortes contacted. Morphine PRN ordered.
[2021-06-02] VITALS (7 sets, daily range): BP systolic 149–169; BP diastolic 80–97; PULSE 73–95; RESP 10–25; TEMP 36.6–36.8; O2SAT 92–93
[2021-06-02 04:19] LABS: Basophils % 0.3 %; Eosinophils # 0.3 10^3/uL (0.0-0.8); Eosinophils % 3.4 %; Hematocrit 39.1 % (42.0-52.0); Hemoglobin 12.3 g/dL (11.7-16.6); Lymphocytes # 1.5 10^3/uL (0.8-4.8); Lymphocytes % 15.5 %; Mean Corpuscular HGB Conc 31.5 g/dL (30.0-36.0); Mean Corpuscular Hemoglobin 29.1 pg (28.0-34.0); Mean Corpuscular Volume 92.7 fl (80-94); Mean Platelet Volume 9.7 fL (7.4-10.4); Monocytes % 10.1 %; Neutrophils # 6.57 10^3/uL (1.8-7.7); Neutrophils % 70.2 %; Nucleated Red Blood Cells % 0 %; Platelet Count 361 10^3/cmm (130-400); Red Blood Count 4.22 10^6/uL (4.1-5.3); Red Cell Distribution Width 13.5 % (12.1-15.1); White Blood Count 9.4 10^3/uL (4.0-10.0)
[2021-06-02 04:38] LABS: Chol HDL Ratio 3.12 mg/dL (1.0-5.00); Cholesterol 156 mg/dL (0-200); HDL Cholesterol 50 mg/dL (60-100); LDL Cholesterol Calculated 85 mg/dL (50-129); Triglycerides 103 mg/dL (0-150)
[2021-06-02 04:48] LABS: Alanine Aminotransferase 29 U/L (0-41); Albumin Level 3.4 g/dL (3.5-5.2); Alkaline Phosphatase 93 IU/L (40-130); Anion Gap 14.4 (5-19); Aspartate Amino Transferase 31 U/L (0-40); Blood Urea Nitrogen 15 mg/dL (8-23); Calcium 8.9 mg/dL (8.5-10.5); Carbon Dioxide 27 mmol/L (22-29); Chloride 99 mmol/L (98-107); Estmated Average Glucose 157; Globulin 3.3 g/dL (1.3-4.6); Glucose 193 mg/dL (65-115); Hemoglobin A1C 7.1 % (4.0-6.0); Magnesium 1.8 mg/dL (1.7-2.3); Osmolality Calculated 288 mOsm/kg (285-295); Phosphorus 2.9 mg/dL (2.5-4.5); Potassium 4.4 mmol/L (3.5-5.1); Sodium 136 mmol/L (136-145); Total Bilirubin 0.4 mg/dL (0.15-1.2); Total Protein 6.7 g/dL (6.6-8.7)
--- NOTE | 2021-06-02 06:00 | ECG_ITS ---
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 Interpretive Statements NAME OF STUDY: LEXISCAN SESTAMIBI STRESS TEST INDICATION: Chest Pain, PROCEDURE: At the baseline, the EKG revealed normal sinus rhythm with a poor R wave progression. Some nonspecific ST changes. The baseline blood pressure was 169/86 mm Hg with a heart rate of 78 beats/min. Lexiscan was infused over a period of 20 seconds. A total of 0.4 milligrams of Lexiscan was infused. The stress phase was continued for a total of 5 minutes. Heart rate at the end of the stress phase was 91 with a blood pressure 167/65. The EKG at the peak infusion revealed no significant changes. Sestamibi was injected 20 seconds after the Lexiscan infusion. Blood pressure at the end of the recovery phase was 169/80 with a heart rate of 89 per minute. CONCLUSION: 1. No significant EKG changes with the LexiScan infusion 2. No LexiScan induced chest pain or cardiac arrhythmia 3. Normal blood pressure and heart rate response 4. Sestamibi/sestamibi perfusion scan pending; see separate report. Electronically Signed On 06-05-2021 0:33:05 CDT by Kevin Ghosh M.D. [id number]
--- NOTE | 2021-06-02 07:14 | P.PN_ITS ---
Subjective Subjective: Interval history: The patient is significant improvement of the chest pain at this time. He had a myocardial perfusion imaging today. He was found to have no evidence of ischemia. His vital signs remained stable. Medications: Reviewed: Yes Medication Review Details: Laboratory Last Values WBC 9.4 10^3/uL (4.0- 10.0) 06/02/21 03:25 RBC 4.22 10^6/uL (4.1 -5.3) 06/02/21 03:25 Hgb 12.3 g/dL (11.7-1 6.6) 06/02/21 03:25 Hct 39.1 % (42.0-52.0 ) L 06/02/21 03:25 MCV 92.7 fl (80-94) 06/02/21 03:25 MCH 29.1 pg (28.0-34. 0) 06/02/21 03:25 MCHC 31.5 g/dL (30.0-3 6.0) 06/02/21 03:25 RDW 13.5 % (12.1-15.1 ) 06/02/21 03:25 Plt Count 361 10^3/cmm (130 -400) 06/02/21 03:25 MPV 9.7 fL (7.4-10.4) 06/02/21 03:25 Neut % (Auto) 70.2 % 06/02/21 03:25 Lymph % (Auto) 15.5 % 06/02/21 03:25 [place] % (Auto) 10.1 % 06/02/21 03:25 Eos % (Auto) 3.4 % 06/02/21 03:25 Baso % (Auto) 0.3 % 06/02/21 03:25 Neut # (Auto) 6.57 10^3/uL (1.8 -7.7) 06/02/21 03:25 Lymph # (Auto) 1.5 10^3/uL (0.8- 4.8) 06/02/21 03:25 [place] # (Auto) 1.0 10^3/uL (0.2- 0.9) H 06/02/21 03:25 Eos # (Auto) 0.3 10^3/uL (0.0- 0.8) 06/02/21 03:25 Baso # (Auto) 0.0 10^3/uL (0.0- 0.1) 06/02/21 03:25 Nucleated RBC % (a uto) 0 % 06/02/21 03:25 Nucleated RBCs # 0.0 /100WBC 06/02/21 03:25 PT 14.00 SECONDS (12 .1-14.9) 05/31/21 20:10 INR 1.05 (0.8-1.2) 05/31/21 20:10 D-Dimer 1.65 ug/mIFEU (0- 0.59) H 05/31/21 20:10 Sodium 136 mmol/L (136-1 45) 06/02/21 03:25 Potassium 4.4 mmol/L (3.5-5 .1) 06/02/21 03:25 Chloride 99 mmol/L (98-107 ) 06/02/21 03:25 Carbon Dioxide 27 mmol/L (22-29) 06/02/21 03:25 Anion Gap 14.4 (5-19) 06/02/21 03:25 BUN 15 mg/dL (8-23) 06/02/21 03:25 Creatinine 0.9 mg/dL (0.7-1. 2) 06/02/21 03:25 GFR Calculation Not Reportable 06/02/21 03:25 Glucose 193 mg/dL (65-115 ) H 06/02/21 03:25 Estimat Average Gl ucose 157 06/02/21 03:25 Hemoglobin A1c 7.1 % (4.0-6.0) H 06/02/21 03:25 Calculated Osmolal ity 288 mOsm/kg (285- 295) 06/02/21 03:25 Lactic Acid 1.0 mmol/L (0.5-2 .2) 06/02/21 03:25 Calcium 8.9 mg/dL (8.5-10 .5) 06/02/21 03:25 Phosphorus 2.9 mg/dL (2.5-4. 5) 06/02/21 03:25 Magnesium 1.8 mg/dL (1.7-2. 3) 06/02/21 03:25 Total Bilirubin 0.4 mg/dL (0.15-1 .2) 06/02/21 03:25 AST 31 U/L (0-40) 06/02/21 03:25 ALT 29 U/L (0-41) 06/02/21 03:25 Alkaline Phosphata se 93 IU/L (40-130) 06/02/21 03:25 Troponin T Gen 5 n g/L 20 ng/L (0-15) H 06/01/21 11:10 Troponin T Baselin e 22 ng/L (0-15) H 05/31/21 20:10 Troponin T 120 Min knik 21.74 ng/L (0-15) H 05/31/21 22:15 Delta Troponin T -0.26 ABS# (0-10) L 05/31/21 22:15 Troponin T Hi Sens 6Hr 21.44 ng/L (0-15) H 06/01/21 02:00 Troponin T Hi Sens 6Hr Delta -0.56 ng/L (0-12) L 06/01/21 02:00 NT-Pro-B Natriuret Pep 133 pg/mL (0-125) H 06/01/21 02:00 Total Protein 6.7 g/dL (6.6-8.7 ) 06/02/21 03:25 Albumin 3.4 g/dL (3.5-5.2 ) L 06/02/21 03:25 Globulin 3.3 g/dL (1.3-4.6 ) 06/02/21 03:25 Triglycerides 103 mg/dL (0-150) 06/02/21 03:25 Cholesterol 156 mg/dL (0-200) 06/02/21 03:25 LDL Cholesterol, C alc 85 mg/dL (50-129) 06/02/21 03:25 HDL Cholesterol 50 mg/dL (60-100) L 06/02/21 03:25 LDL/HDL Ratio 1.70 RATIO (0.00- 3.22) 06/02/21 03:25 Cholesterol/HDL Ra maeve 3.12 mg/dL (1.0-5 .00) 06/02/21 03:25 Lipase 17 U/L (13-60) 05/31/21 22:15 SARS-CoV-2 Ag (Rap id) Negative (Negati ve) 05/31/21 20:35 Vitals/I&O/Wt Last Vital Signs Temp 98 F 06/02/21 03:18 Pulse 73 06/02/21 05:42 Resp 10 L 06/02/21 03:18 BP 151/85 06/02/21 03:18 Pulse Ox 92 06/02/21 03:18 06/01/21 06/02/21 06/02/21 22:59 06:59 14:59 Intake Total 120 / 1200 Output Total 550 / 2400 Balance 120 / -650 -550 / -1200 Weight last 48 hrs Weight 230 lb Physical Exam Narrative: EXAM NARRATIVE: GENERAL: The patient is alert and oriented times three. Not in any acute distress. Moderately obese HEENT: No significant pallor, icterus or lymphadenopathy. The pupils are reactant to light. Oral cavity: There are no mucous membrane lesions. NECK: Trachea appears to be central. No masses noted. No JVD or thyromegaly appreciated. No carotid bruit. RESPIRATORY: Chest is symmetrical. No intercostals muscle retraction or any accessory muscle activation. There is no chest wall tenderness. Breath sounds are heard bilaterally. No rales or rhonchi heard. No evidence of any consolidation. BREASTS: Deferred. HEART: The heart sounds are normal no S3 or S4. ABDOMEN: No vessel pulsations or distention. No tenderness. No organomegaly appreciated. No abdominal bruit. Bowel sounds are normally heard. : Deferred. RECTAL: Deferred. LYMPHATIC: No lymphadenopathy noted in the neck or groin. EXTREMITIES: He has features of chronic venous stasis bilaterally. Hype rpigmented skin with some healing superficial ulcers. Peripheral pulses are palpable but weak bilaterally MUSCULOSKELETAL: History movements of the right shoulder is limited. No acute joint deformities or swelling SKIN: There are no significant scars or skin rash noted. NEUROPSYCHIATRIC: The patient is alert and oriented x3. Appears to be in a good mood. The higher functions are grossly within normal limits. No tremors or rigidity noted. Data : 06/02/21 03:25 06/02/21 03:25 A&P Assessment and plan (1) Chest pain: The patient's chest pain appears to be musculoskeletal /neurological. Some form of compressive neuropathy causing this is a consideration. Most likely this is noncardiac. There is no evidence of any acute ischemia or myocardial injury at this point. His EKG and echocardiogram are unremarkable. A slightly elevated baseline troponin T, could be a type II [place]. The myocardial perfusion imaging results from today was discussed with the patient.since there is no evidence of ischemia, he may not require any further cardiac evaluation at this point. Status: Acute Qualifiers: Chest pain type: chest pain on breathing Qualified Code(s): R07.1 - Chest pain on breathing (2) Atherosclerotic heart disease of [place] coronary artery with other forms of angina pectoris: As mentioned above Status: Acute (3) Benign essential hypertension with target blood pressure below 140/90: The blood pressure is currently under control. May continue on the current medications. Status: Acute (4) Hx pulmonary embolism: He is on long-term oral anticoagulation which may be continued. Status: Chronic Additional A&P Information Other problems are COPD/reactive airway disease, on bronchodilators. Currently seems to be stable. History of obstructive sleep apnea. ? Trigeminal neuralgia Statin intolerant If the patient continues remain stable, may be discharged home today. Patient is advised to keep his appointment with Dr. Ramirez at the [facility]. I discussed the angiogram findings with Dr. Rodriguez, who concurred with this plan. Dr. Rodriguez took over further management of this patient at this point. 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
--- NOTE | 2021-06-02 07:15 | PC.NURSE ---
Patient left unit for nuc med stress test.
--- NOTE | 2021-06-02 07:33 | PC.NURSE ---
Patient was upset at beginning of shift that he needed pain meds but this RN was in a procedure with md. Pain meds given by special agent in charge. Pain was gone on re-check. Numerous attempts in the night to check patient for pain however patient was sleeping. Will continue to monitor.
[2021-06-02] MEDS: regadenoson 0.4 Mg/5 ml Syringe IVP (08:14)
--- NOTE | 2021-06-02 09:30 | PC.NURSE ---
Patient returned to CSU.
[2021-06-02] MEDS: tamsulosin 0.4 mg Capsule PO (10:02)
[2021-06-02] MEDS: apixaban 5 mg Tablet PO (10:03)
[2021-06-02] MEDS: pantoprazole DR 40 mg Tablet PO (10:05)
[2021-06-02] MEDS: amlodipine 5 mg Tablet PO (10:05)
[2021-06-02] MEDS: aspirin 81 mg EC Tablet PO (10:05)
[2021-06-02] MEDS: clopidogrel 75 mg Tablet PO (10:06)
[2021-06-02] MEDS: lidocaine 5% Patch 1 PATCH TOPICAL (10:06)
--- NOTE | 2021-06-02 10:40 | NMCV_ITS ---
NM corey perf SPECT r/s* [id number] Aamir Santa Age: 75 Gender: M : 1945 Exam Date: 06/02/2021 07:19 Ordering Phys: Antoinette Yusuf MD Technologist: NAHED Modi Exam Location: [facility] Indications: CHEST PAINS STRESS TEST Please see separate stress test report in [facility] for full findings IMAGE PROTOCOL Rest/Stress 1 Lexiscan Day Radiopharmaceutical Dose (mCi) Administration Site Administered by Rest: Tc-99m 10.7 IV NAHED Urias Sestamibi Stress:Tc-99m 32.9 IV NAHED Urias Sestamibi Rest: 02-Jun-2021 60 Discovery 630 Stress: 02-Jun-2021 30 Discovery 630 0.4mg Lexiscan. Images obtained in supine and prone position. SPECT RESULTS Technical Quality: Excellent Raw Data Analysis: Normal Image Corrections: No attenuation or motion correction applied Summed Stress Score: 0 Summed Rest Score: 0 Summed Difference Score: 0 PERFUSION FINDINGS Fairly uniform myocardial tracer uptake with no significant perfusion abnormalities FUNCTIONAL RESULTS (calculated via Gated SPECT) Stress Image LV EF (%): 66 Stress EDV (mL):146 TID: 1.05 Stress ESV (mL):50 FUNCTIONAL FINDINGS: Segmental wall motion analysis revealing no gross wall motion abnormalities IMPRESSIONS 1. Unremarkable myocardial perfusion imaging 2. Normal LV ejection fraction of 66%. 3. LV wall motion analysis revealing no gross wall motion abnormalities. 4. Minimally dilated LV cavity with an end-systolic volume of 50 mL No significant coronary ischemia, based on the above findings Dr Kevin Ghosh MD FACC (Electronically Signed) Final Date: 02 June 2021 12:40 S
--- NOTE | 2021-06-02 13:23 | P.DS_ITS ---
Discharge Providers Date of Admission: 05/31/21 22:58 Date of Discharge: June 02, 2021 Attending Provider at Admission: Fermin Cortes MD Attending Provider at Discharge: Zulema Sr MD Primary Care Provider: FLAVIA Lamb Diagnoses at Discharge Discharge Diagnosis (1) Chest pain: Status: Acute Qualifiers: Chest pain type: chest pain on breathing Qualified Code(s): R07.1 - Chest pain on breathing (2) Atherosclerotic heart disease of [place] coronary artery with other forms of angina pectoris: Status: Acute (3) Benign essential hypertension with target blood pressure below 140/90: Status: Acute (4) Hx pulmonary embolism: Status: Chronic Reason for Visit Reason for Visit: Chest Pains Hospital Course Hospital Course Patient was admitted for management of right-sided chest pain. Considering his tory of established coronary artery disease and significant risk factors cardiac stress test was recommended by Dr. Ghosh who evaluated him over the weekend. His troponins were not significantly elevated EKG without ischemic or infarctive changes, his chest pain was reproducible. Lidocaine patch did help to relieve his symptoms. Cardiac stress test read by Dr. Ghosh on Wednesday was unremarkable . He was discharged home with 12-13 lidocaine patches. He will follow up with his supervisor coffee and PCP. CTA was done which ruled out PE during this hospitalization. Physical Exam Narrative: EXAM NARRATIVE: Patient in no apparent distress Reproducible right-sided chest pain Has lidocaine patch on Breathing well on room air Hemodynamically stable EOMI, PERRLA No audible stridor or wheezing Abdomen distended, soft visceral obesity EOMI, PERRLA S1, S2 Discharge Data Data Completed and Pending: Completed Studies During Hospitalization Category Date Time Status CT angio chest PE protcl [id number] Urge nt Cat Scan 05/31/21 20:47 Completed Sestamibi Stress Test Request Routi ne Exams 06/02/21 06:00 Draft XR chest 1V zackery ble [id number] Stat Exams 05/31/21 20:03 Completed NM corey perf SPECT r/s* [id number] Routin e Nuc Med 06/02/21 10:40 Completed CV. echo complete * [id number] Routine Ultrasound 06/01/21 00:35 Completed Pending at discharge Category Date Time Status Complete Blood Co unt w/Auto AM LABS Lab 06/03/21 04:00 Ordered Complete Blood Co unt w/Auto AM LABS Lab 06/04/21 04:00 Ordered Comprehensive Met abolic Panel AM LA BS Lab 06/03/21 04:00 Ordered Comprehensive Met abolic Panel AM LA BS Lab 06/04/21 04:00 Ordered Magnesium AM LABS Lab 06/03/21 04:00 Ordered Magnesium AM LABS Lab 06/04/21 04:00 Ordered Phosphorus AM LAB S Lab 06/03/21 04:00 Ordered Phosphorus AM LAB S Lab 06/04/21 04:00 Ordered Labs from last 24 hours 06/02/21 06/02/21 06/02/21 03:25 03:25 03:25 WBC RBC Hgb Hct MCV MCH MCHC RDW Plt Count MPV Neut % (Auto) Lymph % (Auto) [place] % (Auto) Eos % (Auto) Baso % (Auto) Neut # (Auto) Lymph # (Auto) [place] # (Auto) Eos # (Auto) Baso # (Auto) Nucleated RBC % (a uto) Nucleated RBCs # Sodium Potassium Chloride Carbon Dioxide Anion Gap BUN Creatinine GFR Calculation Glucose Estimat Average Gl ucose 157 Hemoglobin A1c 7.1 H Calculated Osmolal ity Lactic Acid 1.0 Calcium Phosphorus Magnesium Total Bilirubin AST ALT Alkaline Phosphata se Total Protein Albumin Globulin Triglycerides 103 Cholesterol 156 LDL Cholesterol, C alc 85 HDL Cholesterol 50 L LDL/HDL Ratio 1.70 Cholesterol/HDL Ra maeve 3.12 06/02/21 06/02/21 03:25 03:25 WBC 9.4 RBC 4.22 Hgb 12.3 Hct 39.1 L MCV 92.7 MCH 29.1 MCHC 31.5 RDW 13.5 Plt Count 361 MPV 9.7 Neut % (Auto) 70.2 Lymph % (Auto) 15.5 [place] % (Auto) 10.1 Eos % (Auto) 3.4 Baso % (Auto) 0.3 Neut # (Auto) 6.57 Lymph # (Auto) 1.5 [place] # (Auto) 1.0 H Eos # (Auto) 0.3 Baso # (Auto) 0.0 Nucleated RBC % (a uto) 0 Nucleated RBCs # 0.0 Sodium 136 Potassium 4.4 Chloride 99 Carbon Dioxide 27 Anion Gap 14.4 BUN 15 Creatinine 0.9 GFR Calculation Not Reportable Glucose 193 H Estimat Average Gl ucose Hemoglobin A1c Calculated Osmolal ity 288 Lactic Acid Calcium 8.9 Phosphorus 2.9 Magnesium 1.8 Total Bilirubin 0.4 AST 31 ALT 29 Alkaline Phosphata se 93 Total Protein 6.7 Albumin 3.4 L Globulin 3.3 Triglycerides Cholesterol LDL Cholesterol, C alc HDL Cholesterol LDL/HDL Ratio Cholesterol/HDL Ra maeve Vitals: Last Vital Signs Temp 98.3 F 06/02/21 12:00 Pulse 95 06/02/21 12:00 Resp 25 H 06/02/21 12:00 BP 149/81 06/02/21 12:00 Pulse Ox 93 06/02/21 12:00 Discharge Plan Discharge Patient Disposition: Home Condition: Stable Prescriptions: New LidoPro Patch 4-4-5 % adhesive patch,medicated 1 patch topical Q12H PRN (Reason: pain) Qty: 15 RF: 0 nitroglycerin 0.4 mg tablet, sublingual 0.4 mg sublingual Q5M Qty: 10 RF: 0 Continued pantoprazole 40 mg tablet,delayed release (DR/EC) 40 mg PO DAILY RF: 0 clopidogrel 75 mg tablet 75 mg PO DAILY RF: 0 metformin 1,000 mg tablet 1,000 mg PO BID RF: 0 Eliquis 5 mg tablet 5 mg PO BID RF: 0 Spiriva with HandiHaler 18 mcg capsule, w/inhalation device 1 cap INHALATION DAILY RF: 0 albuterol sulfate [ProAir HFA] 90 mcg/actuation HFA aerosol inhaler 2 puff INHALATION Q6H PRN (Reason: Shortness Of Breath) RF: 0 glipizide 5 mg tablet 5 mg PO BID RF: 0 tamsulosin 0.4 mg capsule 0.4 mg PO DAILY RF: 0 hydrocortisone 2.5 % cream 1 applic topical BID PRN (Reason: Rash) RF: 0 nystatin 100,000 unit/gram cream 1 applic topical DAILY RF: 0 hydrocodone-acetaminophen 5-325 mg tablet 1 tab PO Q6H PRN (Reason: Renal colic) 3 Days Qty: 12 RF: 0 metoprolol tartrate 50 mg tablet 75 mg PO BID RF: 0 Discharge Orders: Discharge Order (Routine); Ordered 06/02/21 Ordered By: Zulema Sr Referrals: Ely Gunter FNP [Primary Care Provider] - 06/06/21 9:00 am (You have a hospital followup with FLAVIA Thomas at [facility] June 06 at 9:00am) Discharge Diet: Cardiac Discharge Activity: Increase activity as tolerated Patient Instructions: Nitroglycerin, Rapid Release (By mouth), Lidocaine Patch (On the skin), Chest Pain (DC) Discharge Attestations Time Spent in Discharge Care*: less than 30 min Quality Metrics Clinical Quality Measures During this hospital stay, did patient experience: None Coding Level of Care Code Acute Chg FW DC note Diagnoses Chest pain R07.1 Chest pain type: chest pain on breathing Atherosclerotic heart disease of [place] coronary artery with other forms of angina pectoris I25.118 Benign essential hypertension with target blood pressure below 140/90 I10 Hx pulmonary embolism Z86.711
--- NOTE | 2021-06-02 14:32 | PC.RESP ---
PULMONARY REHAB INFORMATION SENT TO PATIENT.
--- NOTE | 2021-06-04 13:31 | PC.SOCIAL ---
discharge follow up call made. patient denies chest pain or shortness of breath. patient went to the pharmacy and picked up medications, was only given nitro. pattern chart writer called [facility] pharmacy, they reported that the lidopro patch had to be ordered, this message wasn't relayed to patient. they will order the medication and it should be available tomorrow, they will call the patient when the medication is ready. pattern chart writer called patient and gave this info, advised patient to call tomorrow to make sure medication was available. patient is aware of follow up appointment with pcp.
== END 2021-06-02 14:15 | disposition home or self-care (01) ==
LOC: ER 23:17 → CSU 23:26
PROVIDERS: Internal Medicine; Admitting Provider Family Medicine; Emergency Provider Emergency Medicine; PCP Nurse Practitioner; Visit Provider Internal Medicine
DX: R07.1 Chest pain on breathing (principal); I25.118 Atherosclerotic heart disease of native coronary artery with other forms of angina pectoris; I10 Essential (primary) hypertension; Z86.711 Personal history of pulmonary embolism; I25.2 Old myocardial infarction; Z95.5 Presence of coronary angioplasty implant and graft; J44.9 Chronic obstructive pulmonary disease, unspecified; E78.5 Hyperlipidemia, unspecified; K21.9 Gastro-esophageal reflux disease without esophagitis; G47.33 Obstructive sleep apnea (adult) (pediatric); Z82.49 Family history of ischemic heart disease and other diseases of the circulatory system; Z83.3 Family history of diabetes mellitus; E11.9 Type 2 diabetes mellitus without complications; Z87.891 Personal history of nicotine dependence; Z79.01 Long term (current) use of anticoagulants; I44.0 Atrioventricular block, first degree; Z79.02 Long term (current) use of antithrombotics/antiplatelets
CPT/HCPCS: 36415; 71045; 71275; 78452; 80053; 80061; 83036; 83605; 83690; 83735; 83880; 84100; 84484; 85025; 85378; 85610; 87426; 93005; 93017; 93306; 94640; 96374; 96376; 97161; 97530; 99285; A9500; G0378; J2270; J2785; Q9967

== ENCOUNTER → 2021-06-05 09:00 | Outpatient (BNVA) | payer OTHER, MEDICARE, SELFPAY | PROVIDERS: PCP Nurse Practitioner; Visit Provider Urology | DX: N47.1 Phimosis (principal); N48.1 Balanitis | CPT/HCPCS: 81003 ==

== ENCOUNTER 2022-04-14 19:32 | Inpatient (IN) | payer OTHER, MEDICARE, SELFPAY ==
--- NOTE | 2022-04-14 19:39 | ECG_ITS ---
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 Measurements Intervals [place] Rate: 103 P: 87 MO: 205 QRS: 124 QRSD: 99 T: 78 QT: 344 QTc: 452 Interpretive Statements SINUS TACHYCARDIA MINIMAL ST DEPRESSION [0.025+ mV ST DEPRESSION] Compared to ECG 06/01/2021 21:42:44 Atrial abnormality now present ST (T wave) deviation now present Sinus rhythm no longer present Myocardial infarct finding no longer present Electronically Signed On 04-15-2022 6:35:34 CDT by Kevin Ghosh M.D. [email or web address]
--- NOTE | 2022-04-14 19:39 | XRR_ITS ---
PROCEDURE INFORMATION: Exam: XR Chest Exam date and time: 04/15/2022 12:03 AM Age: 76 years old Clinical indication: Chest pressure; Prior surgery; Surgery type: Coronary stents; Patient HX: C/O chest pain; Additional info: Cp TECHNIQUE: Imaging protocol: Radiologic exam of the chest. Views: 1 view. COMPARISON: 1. CT angio chest PE protcl [id number] 05/31/2021 9:26 PM 2. CR XR chest 1V portable [id number] 05/31/2021 8:27 PM FINDINGS: Lungs: The lung parenchyma is clear. Pleural spaces: No pneumothorax. No pleural effusion. Heart/Mediastinum: Cardiomediastinal silhouettes within normal limits. Prominent fat at the cardiac apex again noted. Calcified right hilar lymph nodes again noted. Bones/joints: Unremarkable. XR/XR chest 1V portable [id number] IMPRESSION: No acute cardiopulmonary abnormality identified.
[2022-04-14 19:45] VITALS: BP 201/74; PULSE 114; RESP 24; TEMP 36.8; O2SAT 98; BMI 34.2
[2022-04-14 20:09] LABS: Basophils % 0.2 %; Eosinophils # 0.1 10^3/uL (0.0-0.8); Eosinophils % 1.1 %; Hemoglobin 14.1 g/dL (11.7-16.6); Lymphocytes # 1.1 10^3/uL (0.8-4.8); Lymphocytes % 8.5 %; Mean Corpuscular HGB Conc 32.8 g/dL (30.0-36.0); Mean Corpuscular Hemoglobin 29.2 pg (28.0-34.0); Mean Platelet Volume 9.9 fL (7.4-10.4); Monocytes # 0.7 10^3/uL (0.2-0.9); Monocytes % 5.4 %; Neutrophils # 10.85 10^3/uL (1.8-7.7); Neutrophils % 84.3 %; Nucleated Red Blood Cells % 0 %; Platelet Count 362 10^3/cmm (130-400); Red Blood Count 4.83 10^6/uL (4.1-5.3); Red Cell Distribution Width 13.2 % (12.1-15.1); White Blood Count 12.9 10^3/uL (4.0-10.0)
[2022-04-14 20:25] LABS: INR 0.96 (0.8-1.2)
[2022-04-14 20:35] LABS: Alanine Aminotransferase 54 U/L (0-41); Albumin Level 4.2 g/dL (3.5-5.2); Alkaline Phosphatase 151 IU/L (40-130); Anion Gap 17.5 (5-19); Aspartate Amino Transferase 54 U/L (0-40); Blood Urea Nitrogen 15 mg/dL (8-23); Calcium 9.3 mg/dL (8.5-10.5); Carbon Dioxide 26 mmol/L (22-29); Chloride 96 mmol/L (98-107); Glucose 326 mg/dL (65-115); Osmolality Calculated 293 mOsm/kg (285-295); Potassium 4.5 mmol/L (3.5-5.1); Sodium 135 mmol/L (136-145); Total Bilirubin 0.3 mg/dL (0.15-1.2); Total Protein 7.2 g/dL (6.6-8.7)
[2022-04-14 20:40] LABS: Troponin(5th) Baseline 56 ng/L (0-15)
--- NOTE | 2022-04-14 21:39 | ECG_ITS ---
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 Measurements Intervals [place] Rate: 80 P: 50 SD: 207 QRS: 47 QRSD: 109 T: 39 QT: 377 QTc: 435 Interpretive Statements SINUS RHYTHM MINIMAL ST DEPRESSION [0.025+ mV ST DEPRESSION] Compared to ECG 06/01/2021 21:42:44 ST (T wave) deviation now present Myocardial infarct finding no longer present Electronically Signed On 04-15-2022 19:51:05 CDT by Dionne Allen M.D. [id number]
[2022-04-14 22:12] VITALS: BP 200/81; PULSE 84; RESP 18; TEMP 36.7; O2SAT 95
--- NOTE | 2022-04-14 22:14 | PC.NURSE ---
patient 2nd troponin and ekg obtained and shown to dr. swain. patient in no obivous distress. vitals obtained and charted.
[2022-04-14 23:04] VITALS: BP 212/94; PULSE 84; RESP 18; O2SAT 91
--- NOTE | 2022-04-14 23:38 | ED_ITS ---
HPI - Chest Pain General: Chief Complaint: Chest Pain Stated Complaint: cp Time Seen by Provider: 04/14/22 23:15 Source: patient Mode of arrival: ambulatory Limitations: no limitations History of Present Illness: 76-year-old male that states he has been having chest pain over the last day. He has extensive cardiac history states he has not been taking any of his meds including his antihypertensive medicines or his diabetes medicine. States his pain today has been intermittent in nature going down his left arm he denies any pain currently. Denies any worsening proving factors denies any shortness of breath to me. Associated symptoms: Deny abdominal pain, dyspnea, fever(s), nausea or vomiting Review of Systems Const: Denies: fever(s), chills, body aches or change in appetite Eyes: Denies: blurry vision or eye discomfort ENMT: Denies: throat pain or dental pain Card: Reports: chest pain Resp: Denies: dyspnea GI: Denies: abdominal pain, nausea, vomiting or diarrhea : Denies: dysuria Musc: Denies: neck pain or back pain Skin/Breast: Denies: rash Neuro: Denies: headache(s) Psych: Denies: depression Theron/Lymph: Denies: easy bruising All/Imm: Denies: urticaria PFSH ED PFSH: Medical History Anticoagulant long-term use Aortic insufficiency with aortic stenosis ASHD (arteriosclerotic heart disease) Atherosclerotic heart disease of [place] coronary artery with other forms of angina pectoris Balanitis Benign essential hypertension with target blood pressure below 140/90 Chest pain COPD (chronic obstructive pulmonary disease) COPD (chronic obstructive pulmonary disease) Dyslipidemia GERD (gastroesophageal reflux disease) HTN (hypertension) Hx pulmonary embolism THANG (obstructive sleep apnea) Statin intolerance Tobacco abuse Surgical History H/O circumcision S/P PTCA (percutaneous transluminal coronary angioplasty) S/P tonsillectomy Family History Brother Cancer Diabetes Hypertension Myocardial infarction Mother CAD (coronary artery disease) Diabetes Hypertension Myocardial infarction Father CAD (coronary artery disease) Stroke Hypertension Myocardial infarction Sister CAD (coronary artery disease) Social History Alcohol intake: current Alcohol intake frequency: few times a month Household members: spouse Marital status: Current occupational status: retired History of recent travel: No Physical Exam Const: COMMON NORMALS: patient oriented x3 HENMT: COMMON NORMALS: normocephalic and atraumatic HEAD & SCALP: normo cephalic and atraumatic Eye: COMMON NORMALS: Equal, round and reactive pupils present and EOMs intact bilaterally PUPIL: Yes Equal, round and reactive pupils present Neck/C-Spine: COMMON NORMALS: full ROM and supple Chest: COMMONS NORMALS: normal inspection of the chest and normal palpation of entire chest wall Resp: COMMON NORMALS: normal respiratory effort, No retractions, No use of accessory muscles and clear to auscultation bilaterally AUSCULTATION: clear to auscultation bilaterally Cardio: COMMON NORMALS: regular rate, regular rhythm and No murmurs present (Cardio) RATE: regular rate RHYTHM: regular rhythm GI: COMMON NORMALS: Normal to inspection, nondistended, normoactive bowel sounds present, Soft to palpation, non-tender and no masses PALPATION: Yes Soft to palpation Extremity: COMMON NORMALS: normal to inspection and full ROM Neuro: COMMON NORMALS: patient oriented x3, moves all extremities and no focal motor deficits Psych: COMMON NORMALS: mental status grossly normal, Normal thought process present and cooperative THOUGHT PROCESS: Normal thought process present Skin: COMMON NORMALS: no rashes or lesions noted and no wounds GENERAL SKIN EXAM: no rashes or lesions noted Course Vital Signs: Vital signs: Vital Signs Temperature 98.0 F 04/14/22 22:12 Pulse Rate 84 04/14/22 22:12 Respiratory Rate 18 04/14/22 22:12 Blood Pressure 200/81 04/14/22 22:12 Pulse Oximetry 95 04/14/22 22:12 Oxygen Delivery Me thod 04/14/22 22:12 Oxygen Flow Rate 2 04/14/22 22:12 [facility] - Chest Pain Medical Decision Making Patient presents for chest pain patient's 2-hour troponin is elevated consistent with an NSTEMI EKG shows no ST elevation here he has been pain-free here spoke to hospitalist and lead php developer and will admit at this time. Lab Data : 04/14/22 20:00 04/14/22 20:00 Laboratory Results WBC 12.9 10^3/uL (4.0-10.0) H 04/14/22 20:00 RBC 4.83 10^6/uL (4.1-5.3) 04/14/22 20:00 Hgb 14.1 g/dL (11.7-16.6) 04/14/22 20:00 Hct 43.0 % (42.0-52.0) 04/14/22 20:00 MCV 89.0 fl (80-94) 04/14/22 20:00 MCH 29.2 pg (28.0-34.0) 04/14/22 20:00 MCHC 32.8 g/dL (30.0-36.0) 04/14/22 20:00 RDW 13.2 % (12.1-15.1) 04/14/22 20:00 Plt Count 362 10^3/cmm (130-400) 04/14/22 20:00 MPV 9.9 fL (7.4-10.4) 04/14/22 20:00 Neut % (Auto) 84.3 % 04/14/22 20:00 Lymph % (Auto) 8.5 % 04/14/22 20:00 [place] % (Auto) 5.4 % 04/14/22 20:00 Eos % (Auto) 1.1 % 04/14/22 20:00 Baso % (Auto) 0.2 % 04/14/22 20:00 Neut # (Auto) 10.85 10^3/uL (1.8-7.7) H 04/14/22 20:00 Lymph # (Auto) 1.1 10^3/uL (0.8-4.8) 04/14/22 20:00 [place] # (Auto) 0.7 10^3/uL (0.2-0.9) 04/14/22 20:00 Eos # (Auto) 0.1 10^3/uL (0.0-0.8) 04/14/22 20:00 Baso # (Auto) 0.0 10^3/uL (0.0-0.1) 04/14/22 20:00 Nucleated RBC % (auto) 0 % 04/14/22 20:00 Nucleated RBCs # 0.0 /100WBC 04/14/22 20:00 PT 13.10 SECONDS (12.1-14.9) 04/14/22 20:00 INR 0.96 (0.8-1.2) 04/14/22 20:00 Sodium 135 mmol/L (136-145) L 04/14/22 20:00 Potassium 4.5 mmol/L (3.5-5.1) 04/14/22 20:00 Chloride 96 mmol/L (98-107) L 04/14/22 20:00 Carbon Dioxide 26 mmol/L (22-29) 04/14/22 20:00 Anion Gap 17.5 (5-19) 04/14/22 20:00 BUN 15 mg/dL (8-23) 04/14/22 20:00 Creatinine 1.1 mg/dL (0.7-1.2) 04/14/22 20:00 GFR Calculation Not Reportable 04/14/22 20:00 Glucose 326 mg/dL (65-115) H 04/14/22 20:00 Calculated Osmolality 293 mOsm/kg (285-295) 04/14/22 20:00 Calcium 9.3 mg/dL (8.5-10.5) 04/14/22 20:00 Total Bilirubin 0.3 mg/dL (0.15-1.2) 04/14/22 20:00 AST 54 U/L (0-40) H 04/14/22 20:00 ALT 54 U/L (0-41) H 04/14/22 20:00 Alkaline Phosphatase 151 IU/L (40-130) H 04/14/22 20:00 Troponin T Baseline 56 ng/L (0-15) H 04/14/22 20:00 Troponin T 120 Minute 83.70 ng/L (0-15) H 04/14/22 22:15 Delta Troponin T 27.70 ABS# (0-10) H* 04/14/22 22:15 Total Protein 7.2 g/dL (6.6-8.7) 04/14/22 20:00 Albumin 4.2 g/dL (3.5-5.2) 04/14/22 20:00 Globulin 3.0 g/dL (1.3-4.6) 04/14/22 20:00 EKG Data EKG 1: I personally reviewed and interpreted this EKG as follows: EKG interpretation date: 04/14/22 EKG interpretation time: 19:37 Interpretation: sinus tach hr [address] or t wave abnormalities qrs 109 qtc 413 EKG 2: I personally reviewed and interpreted this EKG as follows: EKG interpretation date: 04/14/22 EKG interpretation time: 22:04 Interpretation: nsr hr [address] or t wave abnormalities qrs 109 qtc 413 Discharge Plan Discharge Patient Disposition: Admitted As Inpatient Clinical Impression: Non-ST elevation [place] (NSTEMI) Condition: Stable Prescriptions: No Action pantoprazole 40 mg tablet,delayed release (DR/EC) 40 mg PO DAILY clopidogrel 75 mg tablet 75 mg PO DAILY metformin 1,000 mg tablet 1,000 mg PO BID Eliquis 5 mg tablet 5 mg PO BID Spiriva with HandiHaler 18 mcg capsule, w/inhalation device 1 cap INHALATION DAILY Rx Instructions: puncture 1 cap using device; one dose = 2 inhalations albuterol sulfate [ProAir HFA] 90 mcg/actuation HFA aerosol inhaler 2 puff INHALATION Q6H PRN (Reason: Shortness Of Breath) glipizide 5 mg tablet 5 mg PO BID tamsulosin 0.4 mg capsule 0.4 mg PO DAILY hydrocortisone 2.5 % cream 1 applic topical BID PRN (Reason: Rash) metoprolol tartrate 50 mg tablet 75 mg PO BID LidoPro Patch 4-4-5 % adhesive patch,medicated 1 patch topical Q12H PRN (Reason: pain) Qty: 15 0RF Rx Instructions: may leave on for up to 12 hrs nitroglycerin 0.4 mg tablet, sublingual 0.4 mg sublingual Q5M Qty: 10 0RF Rx Instructions: do not exceed 3 doses per episode Referrals: Ely Gunter FNP [Primary Care Provider] - Coding Level of Care Code ED Oil Operator for Chg Fwd Exam Comprehensive
--- NOTE | 2022-04-14 23:57 | P.HP_ITS ---
Providers/Chief Complaint Primary Care Provider: FLAVIA Lamb Chief Complaint: cp History of Present Illness Aamir Santa is a 76 year old male with past medical history of COPD, dyslipidemia, GERD, hypertension, obstructive sleep apnea, CAD status post multiple PCI's, ME in past presented to hospital today with complaint of intermittent chest pain that has been going down his left arm. He has been having chest pressure that lasts a few minutes at a time and then goes away on its own. He states he quit taking his medications because they were too many insomnia to current have some he had to take at home in 1 day he just got fed up and stopped taking them. He restarted his Plavix and started having pain again. Then he quit taking the Plavix and then restarted it again. He has only been on Plavix for the last 3 weeks. He has been noncompliant with all the rest of his medications including his antihypertensives and diabetic medications. Denies nausea, vomiting, abdominal pain, diarrhea, constipation. He says his wanted him to come to the hospital sooner but he kept putting it off. Currently he is chest pain-free and feeling okay. 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 ED course: Blood pressure on arrival 200/81, respirate 18, pulse 84, temperature 98.0, pulse ox 95% on 2 L nasal cannula. EKG did not show acute ST elevation. Patient chest pain at this time. WBC 12,000, troponin 56, 83.7, delta 27. AST 54, ALT 54. Glucose 326. Cardiac history: First ME 2003 in [place]. Had cardiac catheterization followed by PCI. He had a repeat PCI at a different hospital at the same time after couple of years. Details not available. He moved to [place] 6 years ago. In 2017 he presented to the [facility] with features of a non-ST elevation ME. He underwent cardiac catheterization followed by PCI of RCA lesion at that time. Stented mid LAD and right coronary artery were found to be patent with minimal in-stent narrowing.The cardiac catheterization findings are as follows. High-grade stenosis of the proximal to mid RCA with a total occlusion of distal RCA. Grade 2 [id number] collaterals. Patent stented segment of the mid LAD and the RCA. Mild to moderate diffuse disease in the other vessels. Elevated LVEDP. Ejection fraction of 50%. Moderately hypokinesia of the basal and mid inferior wall segments. Patient has not had any recent cardiac work-up. Last echo May 2021 LVEF 63%, mild left ventricular hypertrophy Grade 1 diastolic dysfunction Medications/Allergies Home Medications Medication Instructions Recorded Confirmed Last Taken Type albuterol sulfate 90 mcg/actuation 2 puff inhalation Q6H PRN 02/07/20 06/05/21 Unknown History aerosol inhaler (ProAir HFA) Shortness Of Breath apixaban 5 mg tablet (Eliquis) 5 mg PO BID 02/07/20 06/05/21 Unknown History clopidogrel 75 mg tablet 75 mg PO DAILY 02/07/20 06/05/21 Unknown History metformin 1,000 mg tablet 1,000 mg PO BID 02/07/20 06/05/21 Unknown History pantoprazole 40 mg tablet,delayed 40 mg PO DAILY 02/07/20 06/05/21 Unknown History release tiotropium bromide 18 mcg capsule 1 cap inhalation DAILY 02/07/20 06/05/21 Unknown History with inhalation device (Spiriva with HandiHaler) metoprolol tartrate 50 mg tablet 75 mg PO BID 11/29/20 06/05/21 Unknown History glipizide 5 mg tablet 5 mg PO BID 04/04/21 06/05/21 Unknown History hydrocortisone 2.5 % topical cream 1 applic topical BID PRN Rash 04/25/21 06/05/21 Unknown History tamsulosin 0.4 mg capsule 0.4 mg PO DAILY 04/25/21 06/05/21 Unknown History lidocaine 4 %-methyl salicylate 4 1 patch topical Q12H PRN pain #15 06/02/21 06/05/21 Unknown Rx %-menthol 5 % topical patch ea (LidoPro) nitroglycerin 0.4 mg sublingual 0.4 mg sublingual Q5M #10 tabs 06/02/21 06/05/21 Unknown Rx tablet Allergies Allergy/AdvReac Type Severity Reaction Status Date / Time No Known Allergies Allergy Verified 06/05/21 09:05 PFSH Acute PFSH: Medical History (Updated 04/15/22 @ 00:29 by Antoinette Yusuf MD) Anticoagulant long-term use Aortic insufficiency with aortic stenosis ASHD (arteriosclerotic heart disease) Atherosclerotic heart disease of [place] coronary artery with other forms of angina pectoris Balanitis Benign essential hypertension with target blood pressure below 140/90 Chest pain COPD (chronic obstructive pulmonary disease) COPD (chronic obstructive pulmonary disease) Dyslipidemia GERD (gastroesophageal reflux disease) HTN (hypertension) Hx pulmonary embolism THANG (obstructive sleep apnea) Statin intolerance Tobacco abuse Surgical History (Updated 04/15/22 @ 00:29 by Antoinette uYsuf MD) H/O circumcision S/P PTCA (percutaneous transluminal coronary angioplasty) S/P tonsillectomy Family History Brother Cancer Diabetes Hypertension Myocardial infarction Mother CAD (coronary artery disease) Diabetes Hypertension Myocardial infarction Father CAD (coronary artery disease) Stroke Hypertension Myocardial infarction Sister CAD (coronary artery disease) Social History Alcohol intake: current Alcohol intake frequency: few times a month Household members: spouse Marital status: Current occupational status: retired History of recent travel: No Vitals/I&O/Wt Last Vital Signs Temp 98.0 F 04/14/22 22:12 Pulse 84 04/14/22 22:12 Resp 18 04/14/22 22:12 BP 200/81 04/14/22 22:12 Pulse Ox 95 04/14/22 22:12 O2 Del Method 04/14/22 22:12 O2 Flow Rate 2 04/14/22 22:12 Weight last 48 hrs Weight 102.058 kg Physical Exam Narrative: General: Alert oriented x3, patient seen laying in bed at this time appearing comfortable, breathing 2 L nasal cannula. HEENT: Normocephalic, atraumatic, EOMI, breathing normally, no acute respiratory distress. Cardio: Regular rate rhythm, normal S1-S2 Respiratory: Mainly clear to auscultation bilaterally with diminished sounds at bases. GI: Abdomen soft, nontender, obese rounded abdomen, bowel sounds + Extremities: 1+ pitting edema bilateral lower extremities Data : 04/14/22 20:00 04/14/22 20:00 A&P Assessment and plan (1) Non-ST elevation ME (NSTEMI): Status: Acute (2) Anticoagulant long-term use: Status: Acute (3) COPD (chronic obstructive pulmonary disease): Status: Acute (4) THANG (obstructive sleep apnea): Status: Acute (5) HTN (hypertension): Status: Acute (6) Statin intolerance: Status: Acute (7) Benign essential hypertension with target blood pressure below 140/90: Status: Acute (8) Tobacco abuse: Status: Acute (9) Hx pulmonary embolism: Status: Acute (10) CAD (coronary artery disease): Status: Acute (11) Stented coronary artery: Status: Acute (12) History of myocardial infarction: Status: Acute (13) Noncompliance: Status: Acute Plan #NSTEMI, chest pain #Chronic congestive diastolic heart failure #Dyslipidemia, hypertension #CAD status post PCI RCA, mid LAD #History of ME 2003 #COPD #Obstructive sleep apnea #History of pulmonary embolism #Noncompliance to medications, stopped taking all his medications, including furosemide #Leukocytosis -Restart patient's home meds ? Start aspirin, Plavix, metoprolol, lisinopril, atorvastatin, therapeutic Lovenox, Lasix ? Insulin sliding scale moderate intensity ? Check lipid profile, HbA1c ? Order CPAP for the night ? DuoNeb every 6 hours as needed ? Hold eliquis while on therapeutic lovenox. Restart at discharge -Check BNP. ? Check echo ? Cardiology consulted from the ER. They will follow patient. Will await for further recommendations -Elevated white count. Patient is afebrile. Leukocytosis could be reactive. Denies cough,, dysuria, abdominal pain, diarrhea, constipation. We will watch off antibiotics for now. Check procalcitonin. -Lasix 40 IV daily to be ordered. Full code DVT prophylaxis: On therapeutic Lovenox at this time. Attestations Medical Necessity Statement*: Patient will cross greater than 2 midnight stay for management of NSTEMI Coding Level of Care Code Acute Coffee Attendant for [facility] Fwd Diagnoses Non-ST elevation ME (NSTEMI) I21.4 Anticoagulant long-term use Z79.01 COPD (chronic obstructive pulmonary disease) J44.9 THANG (obstructive sleep apnea) G47.33 HTN (hypertension) I10 Statin intolerance Z78.9 Benign essential hypertension with target blood pressure below 140/90 I10 Tobacco abuse Z72.0 Hx pulmonary embolism Z86.711 CAD (coronary artery disease) I25.10 Stented coronary artery Z95.5 History of myocardial infarction I25.2 Noncompliance Z91.19
[2022-04-15] VITALS (92 sets, daily range): BP systolic 83–206; BP diastolic 43–112; PULSE 67–97; RESP 15–31; TEMP 36.3–36.6; O2SAT 83–98; BMI 36.2
[2022-04-15] MEDS: labetalol 5 mg/mL SDV 20mL 10 MG IVP (00:12)
[2022-04-15] MEDS: enoxaparin 100 mg/mL Syringe SUBCUT (00:13)
--- NOTE | 2022-04-15 00:29 | USR_ITS ---
PROCEDURE INFORMATION: Exam: US Duplex Lower Extremity Veins, Bilateral Exam date and time: 04/15/2022 1:08 AM Age: 76 years old Clinical indication: Edema, localized; Lower extremity, bilateral; Patient HX: HX lle dvt 2019 with pulmonary emboli; Additional info: R/O dvt TECHNIQUE: Imaging protocol: Real-time Duplex ultrasound of the bilateral extremities with 2-D cuenca scale, color Doppler flow and spectral waveform analysis with image documentation. Complete exam focused on the bilateral lower extremity veins. COMPARISON: No relevant prior studies available. FINDINGS: Right deep veins: The common femoral, femoral, popliteal, and calf veins are patent without thrombus. Right superficial veins: Saphenofemoral junction is patent without thrombus. Left deep veins: The common femoral, femoral, popliteal, and calf veins are patent without thrombus. Left superficial veins: Saphenofemoral junction is patent without thrombus. Soft tissues: Unremarkable. US/[id number] IMPRESSION: No evidence of deep vein thrombosis.
--- NOTE | 2022-04-15 00:29 | USCV_ITS ---
Aamir Santa Age: 76 Gender: M : 1945 Exam Date: 04/15/2022 02:12 Ordering Phys: Antoinette Yusuf MD Technologist: [place] [facility] [place]: NSTEMI BP: 174 / 99 HR: 71 Rhythm: Sinus Technical Quality: Adequate MEASUREMENTS (Male / Female) Normal Values 2D ECHO LV Diastolic Diameter PLAX 4.5 cm 4.2 - 5.9 / 3.9 - 5.3 cm LV Systolic Diameter PLAX 2.8 cm IVS Diastolic Thickness 1.9 cm 0.6 - 1.0 / 0.6 - 0.9 cm IVS Systolic Thickness 2.6 cm LVPW Diastolic Thickness 1.6 cm 0.6 - 1.0 / 0.6 - 0.9 cm LVPW Systolic Thickness 1.4 cm LVOT Diameter 2.1 cm LV Ejection Fraction 2D Teich 68.5 % LV Ejection Fraction MOD 2C 62.1 % LV Ejection Fraction 2C AL 69.3 % LA Diameter 5.0 cm LA Width 3.6 cm LA Height 5.4 cm RA Width 2.8 cm RA Height 4.6 cm Aorta at Sinotubular Diameter 3.3 cm IVC Diameter 1.9 cm M-MODE Aortic Annulus Diameter 3.3 cm LA Ao Ratio MM 1.5 MV E Point Septal Separation 0.3 cm DOPPLER AV Peak Velocity 150.0 cm/s LVOT Peak Velocity 88.0 cm/s AV Area Cont Eq vti 2.0 cm squared AV Area Cont Eq pk 2.0 cm squared MV Peak Velocity 111.0 cm/s MV Area PHT 1.5 cm squared Mitral E to A Ratio 0.4 MV E' Velocity 26.5 cm/s Mitral E to MV E' Ratio 12.9 Mitral E to LV E' Lateral Ratio 12.9 Mitral E to LV E' Septal Ratio 12.9 TV Peak E Velocity 36.0 cm/s PV Peak Velocity 101.0 cm/s RV Acceleration Time 0.1 s RV Ejection Time 0.3 s RV AcT/ET 0.2 FINDINGS Left Ventricle Normal left ventricular cavity size. Normal left ventricular systolic function. Left ventricular ejection fraction is estimated at 70 %. No regional wall motion abnormalities. Grade I diastolic dysfunction (abnormal relaxation filling pattern), normal to mildly elevated filling pressures. Right Ventricle Normal right ventricular size and systolic function. RVSP could not be calculated due to incomplete tricuspid regurgitation velocity profile. Right Atrium Normal right atrial size. Right atrial pressure at 3 mmHg. Left Atrium Normal left atrial size. Mitral Valve Mild mitral annular calcification. Structurally normal mitral valve. No mitral valve stenosis. No mitral valve regurgitation. Aortic Valve Mildly thickened trileaflet aortic valve. No aortic valve stenosis. Trace aortic valve regurgitation. Tricuspid Valve Structurally normal tricuspid valve. Trace tricuspid valve regurgitation. Pulmonic Valve Pulmonic valve not well visualized. Trace pulmonary valve regurgitation. Pericardium No pericardial effusion. Aorta Normal size aortic root and proximal ascending aorta. IVC Normal IVC dimension with >50% respiratory change of the inferior vena cava. CONCLUSIONS 1. This is a technically difficult study with off axis parasternal images. 2. Normal left ventricular cavity size and systolic function. Left ventricular ejection fraction is estimated at 70 %. No regional wall motion abnormality. Grade I diastolic dysfunction (abnormal relaxation filling pattern), normal to mildly elevated filling pressures. 3. Trace aortic valve regurgitation. 4. When compared to previous study dated 06/01/2021, there may not have been any significant change. Dionne Allen MD (Electronically Signed) Final Date: 16 April 2022 10:08 S
--- NOTE | 2022-04-15 00:33 | USR_ITS ---
PROCEDURE INFORMATION: Exam: US Abdomen Complete Exam date and time: 04/15/2022 1:30 AM Age: 76 years old Clinical indication: Abnormal findings; Abnormal lab test; Elevated liver enzymes TECHNIQUE: Imaging protocol: Real-time ultrasound of the abdomen with image documentation. Complete exam. COMPARISON: CR Abdomen 2 views [id number] 01/13/2016 5:37 PM FINDINGS: Liver: The liver demonstrates increased echogenicity likely consistent with hepatic steatosis. Gallbladder: Gallbladder appears unremarkable. Gallbladder wall thickness is within normal limits measuring up to 2.2 mm. Negative sonographic Barahona sign. Biliary ducts: The common bile duct is unremarkable measuring up to 5 mm in diameter. Pancreas: Pancreas appears unremarkable. Right kidney: The right kidney measures up to 11.3 cm in the ocean transportation intermediary. No hydronephrosis. Left kidney: The left kidney measures up to 10.8 cm in the longitudinal dimension. Simple appearing cyst measuring up to 4.0 cm in the upper pole of the left kidney noted. No hydronephrosis. Spleen: The spleen appears unremarkable. Aorta: The proximal abdominal aorta measures up to 3.0 cm in diameter. The mid abdominal aorta measures up to 2.6 cm in diameter. The distal abdominal aorta measures up to 2.8 cm in diameter. Inferior vena cava: Unremarkable. Portal venous: The portal vein is patent with appropriate hepatopetal flow. US/US abdomen complete* [id number] IMPRESSION: 1. Hepatic steatosis. 2. 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
[2022-04-15] MEDS: FUROsemide 10 mg/mL SDV 4mL 40 MG IVP (01:04)
[2022-04-15] MEDS: clopidogrel 300 mg Tablet 600 MG PO (01:04)
--- NOTE | 2022-04-15 02:55 | ECG_ITS ---
[facility] Test Date: 2022-04-15 Pat Name: Aamir Santa Department: Room: [facility] Gender: Male Brass Buffer: : 1945 Requested By: Antoinette Yusuf Order Number: [id number] Shey MD: Dionne Allen M.D. Measurements Intervals [place] Rate: 80 P: CO: QRS: 60 QRSD: 100 T: 33 QT: 393 QTc: 454 Interpretive Statements SINUS RHYTHM POSSIBLE ANTERIOR MYOCARDIAL INFARCTION , OF INDETERMINATE AGE [30 ms Q WAVE IN V3/V4, OR R < 0.2 mV IN V4] Compared to ECG 04/14/2022 22:04:54 Supraventricular rhythm now present Myocardial infarct finding now present Sinus rhythm no longer present ST (T wave) deviation no longer present Electronically Signed On 04-15-2022 19:50:09 CDT by Dionne Allen M.D. [id number]
[2022-04-15 03:17] LABS: Add Urine Microscopic? NO; Charge for UA Resulting for Rev
[2022-04-15 03:27] LABS: Bilirubin Urine Neg (Negative); Blood Urine Neg (Negative); Glucose Urine UA Trace (Normal); Ketones Urine Negative (Negative); Leukocyte Esterase Urine Negative (Negative); Nitrate Urine Negative (Negative); Protein Urine Neg (Negative); Specific Gravity, Urine 1.005 (1.005-1.030); Urine Appearance Clear (CLEAR); Urine Color Colorless (Yellow); Urobilinogen Urine Norm (Negative); pH Urine 5 (5-7)
--- NOTE | 2022-04-15 03:46 | PC.NURSE ---
Suicide Assessment: During assessment pt stated, I was started on a new medication and it did give me thoughts of harming myself, but I told my doctor and they stopped the medication. That was over a year ago. Patient denies any active thoughts of harming himself. MD Madelin notified.
[2022-04-15 04:54] LABS: Basophils % 0.3 %; Eosinophils # 0.2 10^3/uL (0.0-0.8); Eosinophils % 1.5 %; Hematocrit 42.1 % (42.0-52.0); Hemoglobin 13.8 g/dL (11.7-16.6); Lymphocytes # 1.8 10^3/uL (0.8-4.8); Lymphocytes % 16.1 %; Mean Corpuscular HGB Conc 32.8 g/dL (30.0-36.0); Mean Corpuscular Volume 88.4 fl (80-94); Mean Platelet Volume 10.2 fL (7.4-10.4); Monocytes # 0.8 10^3/uL (0.2-0.9); Monocytes % 7.3 %; Neutrophils # 8.37 10^3/uL (1.8-7.7); Neutrophils % 74.3 %; Nucleated Red Blood Cells % 0 %; Platelet Count 344 10^3/cmm (130-400); Red Blood Count 4.76 10^6/uL (4.1-5.3); Red Cell Distribution Width 13.2 % (12.1-15.1); White Blood Count 11.3 10^3/uL (4.0-10.0)
[2022-04-15 05:11] LABS: Estmated Average Glucose 235; Hemoglobin A1C 9.8 % (4.0-6.0)
[2022-04-15 05:17] LABS: Troponin 5 6HR 63.12 ng/L (0-15)
[2022-04-15 05:18] LABS: Troponin 5 6HR Delta 7.12 ng/L (0-12)
--- NOTE | 2022-04-15 06:40 | ECG_ITS ---
[facility] Test Date: 2022-04-15 Pat Name: Aamir Santa Department: Room: [facility]05 Gender: Male Clean Out Driller: : 1945 Requested By: Antoinette Yusuf Order Number: [id number] Shey MD: Kevin Ghosh M.D. Measurements Intervals [place] Rate: 74 P: 2 RI: 211 QRS: 45 QRSD: 100 T: 71 QT: 397 QTc: 442 Interpretive Statements SINUS RHYTHM WITH FIRST DEGREE AV BLOCK NONSPECIFIC ST & T-WAVE ABNORMALITY Compared to ECG 04/15/2022 02:55:36 First degree AV block now present T-wave abnormality now present Supraventricular rhythm no longer present Myocardial infarct finding no longer present Electronically Signed On 04-15-2022 6:43:05 CDT by Kevin Ghosh M.D. [id number]
[2022-04-15] MEDS: nitroglycerin 1 gm/inch oint Pkt 1 INCH TOPICAL (06:46)
[2022-04-15 07:12] LABS: Troponin T (5th) Once 55 ng/L (0-15)
[2022-04-15 07:16] LABS: NT Pro B Type Natriuretic Pept 298 pg/mL (0-450); Procalcitonin 0.14 ng/mL (0-0.5); Thyroid Stimulating Hormone 4.57 uIU/mL (0.27-4.20)
[2022-04-15 07:27] LABS: Alanine Aminotransferase 49 U/L (0-41); Albumin Level 4.3 g/dL (3.5-5.2); Alkaline Phosphatase 119 IU/L (40-130); Anion Gap 19.1 (5-19); Aspartate Amino Transferase 43 U/L (0-40); Blood Urea Nitrogen 13 mg/dL (8-23); Calcium 9.4 mg/dL (8.5-10.5); Carbon Dioxide 29 mmol/L (22-29); Chloride 93 mmol/L (98-107); Chol HDL Ratio 3.04 mg/dL (1.0-5.00); Cholesterol 173 mg/dL (0-200); Creatinine Clr Calc Pharmacy 73.7068; Glucose 231 mg/dL (65-115); HDL Cholesterol 57 mg/dL (60-100); LDL Cholesterol Calculated 92 mg/dL (50-129); LDL HDL Ratio 1.61 RATIO (0.00-3.22); Magnesium 1.7 mg/dL (1.7-2.3); Osmolality Calculated 291 mOsm/kg (285-295); Potassium 4.1 mmol/L (3.5-5.1); Sodium 137 mmol/L (136-145); Total Bilirubin 0.5 mg/dL (0.15-1.2); Total Protein 7.3 g/dL (6.6-8.7); Triglycerides 121 mg/dL (0-150)
[2022-04-15] MEDS: nitroglycerin drip 50 MG/250 ML PREMIX IV (07:29)
[2022-04-15] MEDS: lisinopril 20 mg Tablet 40 MG PO ×2 (07:31→09:33)
--- NOTE | 2022-04-15 07:37 | PC.NURSE ---
At 0625 MD was made aware of systolic BP 200's. 06:31 MD made aware of pt having chest pain 8 out of 10, sub sternal pt states, feels like indigestion 06:32 EKG ordered, troponin ordered, nitro paste ordered 06:35 EKG read. First degree AVB with nonspecific ST changes. Pain is starting to ease. 06:44 nitro paste applied 06:45 BP 202/101 HR 77 06:49 patient states pain has decreased from a 7-8 out of 10 to a 4 out of 10 06:55 pain 0 out of 10.
[2022-04-15 08:12] LABS: Glucose Point of Care 251 mg/dL (70-110)
[2022-04-15] MEDS: ipratropium-albuterol 3 mL Neb INHALATION ×3 (08:16→19:44)
[2022-04-15] MEDS: cyclobenzaprine 10 mg Tablet 5 MG PO ×2 (08:40→17:55)
--- NOTE | 2022-04-15 09:03 | PC.PHAR ---
PT UNABLE TO VERIFY- PTS STATES [facility] F[facility]- PTS STATES PT NO LONGER TAKING ELIQUIS 5MG BID, METOPROLOL TARTRATE 75MG, CLOPIDOGREL 75MG, OR TAMSULOSIN 0.4MG.
--- NOTE | 2022-04-15 09:21 | PM.CONSULT ---
Providers/Reason For Consult Consulting Physician/Specialty*: Dav Ramirez MD/Cardiology Reason for Consult*: NSTEMI Requesting Physician: Dr Yusuf Attending Physician: Antoinette Yusuf MD Primary Care Provider: FLAVIA Lamb History of Present Illness History of Present Illness Aamir Santa is a 76 year old male with past medical history of coronary artery disease, COPD, dyslipidemia, multiple PCI's presented to the hospital with significant substernal chest pain with radiation to the left arm. Patient started noticing chest discomfort since yesterday. Blood pressure was significantly elevated. Troponins was elevated at 55 that went up to 83. EKG does not show significant ischemic changes. He was put on nitro drip currently chest pain is well controlled. Review of Systems Const: Denies: fever(s), chills, body aches or change in appetite Eyes: Denies: blurry vision or eye discomfort ENMT: Denies: throat pain or dental pain Card: Reports: chest pain Resp: Denies: dyspnea GI: Denies: abdominal pain, nausea, vomiting or diarrhea : Denies: dysuria Musc: Denies: neck pain or back pain Skin/Breast: Denies: rash Neuro: Denies: headache(s) Psych: Denies: depression Theron/Lymph: Denies: easy bruising All/Imm: Denies: urticaria Medications/Allergies Home Medications Medication Instructions Recorded Confirmed Last Taken Type albuterol sulfate 90 mcg/actuation 2 puff inhalation Q6H PRN 02/07/20 04/15/22 Unknown History aerosol inhaler (ProAir HFA) Shortness Of Breath metformin 1,000 mg tablet 1,000 mg PO BID 02/07/20 04/15/22 Unknown History pantoprazole 40 mg tablet,delayed 40 mg PO DAILY 02/07/20 04/15/22 Unknown History release tiotropium bromide 18 mcg capsule 1 cap inhalation DAILY 02/07/20 04/15/22 Unknown History with inhalation device (Spiriva with HandiHaler) glipizide 5 mg tablet 5 mg PO BID 04/04/21 04/15/22 Unknown History hydrocortisone 2.5 % topical cream 1 applic topical BID PRN Rash 04/25/21 04/15/22 Unknown History lidocaine 4 %-methyl salicylate 4 1 patch topical Q12H PRN pain #15 06/02/21 04/15/22 Unknown Rx %-menthol 5 % topical patch ea (LidoPro) nitroglycerin 0.4 mg sublingual 0.4 mg sublingual Q5M #10 tabs 06/02/21 04/15/22 Unknown Rx tablet aspirin 81 mg tablet,delayed 81 mg PO DAILY 04/15/22 04/15/22 Unknown History release glipizide 10 mg tablet 10 mg PO BID 04/15/22 04/15/22 Unknown History Allergies Allergy/AdvReac Type Severity Reaction Status Date / Time atorvastatin [From Lipitor] Allergy Unknown Verified 04/15/22 09:03 rosuvastatin [From Crestor] Allergy Unknown Verified 04/15/22 09:03 Current Medications Generic Name Dose Route Start Last Admin Trade Name Freq PRN Reason Stop Dose Admin Albuterol/Ipratropium 3 ml 04/15/22 08:00 04/15/22 08:16 Ipratropium-Albuterol 3 Ml Neb INHALATION 3 ml QID.RESPIRATORY BRITNEY Administration Cyclobenzaprine HCl 5 mg 04/15/22 08:32 04/15/22 08:40 Cyclobenzaprine 10 Mg Tablet PO 5 mg TID PRN Administration MUSCLE SPASMS Enoxaparin Sodium 100 mg 04/15/22 00:45 04/15/22 01:00 Enoxaparin 100 Mg/Ml Syringe SUBCUT Not Given Q12H BRITNEY Furosemide 40 mg 04/15/22 00:35 04/15/22 01:04 Furosemide 10 Mg/Ml Sdv 4ml IVP 40 mg DAILY BRITNEY Administration Nitroglycerin/Dextrose 50 mg in 250 mls @ 0 mls/hr 04/15/22 07:00 04/15/22 07:52 Nitroglycerin Drip IV 15 mcg/min .Q0M BRITNEY 4.5 mls/hr Titration Protocol Per Protocol Lisinopril 40 mg 04/15/22 06:30 04/15/22 07:31 Lisinopril 20 Mg Tablet PO 40 mg DAILY BRITNEY Administration PFSH Acute PFSH: Medical History Anticoagulant long-term use Aortic insufficiency with aortic stenosis ASHD (arteriosclerotic heart disease) Atherosclerotic heart disease of [place] coronary artery with other forms of angina pectoris Balanitis Benign essential hypertension with target blood pressure below 140/90 Chest pain COPD (chronic obstructive pulmonary disease) COPD (chronic obstructive pulmonary disease) Dyslipidemia GERD (gastroesophageal reflux disease) HTN (hypertension) Hx pulmonary embolism THANG (obstructive sleep apnea) Statin intolerance Tobacco abuse Surgical History H/O circumcision S/P PTCA (percutaneous transluminal coronary angioplasty) S/P tonsillectomy Family History Brother Cancer Diabetes Hypertension Myocardial infarction Mother CAD (coronary artery disease) Diabetes Hypertension Myocardial infarction Father CAD (coronary artery disease) Stroke Hypertension Myocardial infarction Sister CAD (coronary artery disease) Social History Alcohol intake: current Alcohol intake frequency: few times a month Household members: spouse Marital status: Current occupational status: retired History of recent travel: No Vitals/I&O/Wt Last Vital Signs Temp 97.9 F 04/15/22 03:15 Pulse 85 04/15/22 08:20 Resp 26 H 04/15/22 08:20 BP 206/112 04/15/22 06:45 Pulse Ox 94 04/15/22 08:20 O2 Del Method 04/15/22 08:20 O2 Flow Rate 3 04/15/22 08:20 04/14/22 04/15/22 04/15/22 22:59 06:59 14:59 Intake Total 1.15 / 1.15 Output Total 1200 / 1200 175 / 175 Balance -1200 / -1200 -173.85 / -173.85 Weight last 48 hrs Weight 231 lb 6.4 oz Weight 225 lb Physical Exam Narrative: GENERAL: Patient is alert, awake and oriented x3. [] NECK: No jugular vein distension. [] HEENT: No cyanosis. No icterus. No pallor. [] HEART: Regular S1 and S2. No murmur, rub or gallop. [] LUNGS: Clear to auscultate bilaterally. [] ABDOMEN: Soft, nontender and nondistended. Positive bowel sounds. No guarding, rebound or tenderness. [] CENTRAL NERVOUS SYSTEM: Grossly nonfocal. [] EXTREMITIES: Lower extremities with 1+ edema bilaterally. Pulses palpable in the lower extremities, both dorsalis pedis and posterior tibial. [] Data : 04/15/22 04:20 04/15/22 06:26 Micro: Microbiology 04/15/22 04:20 Blood Culture - Preliminary Blood SPECIMEN COLLECTED 04/15/22 04:20 Blood Culture - Preliminary Blood SPECIMEN COLLECTED A&P Assessment and plan (1) CAD (coronary artery disease): Status: Acute (2) Non-ST elevation MS (NSTEMI): Status: Acute (3) HTN (hypertension): Status: Acute (4) COPD (chronic obstructive pulmonary disease): Status: Acute Plan Patient has presented with non-ST elevation MS. He was not taking medications recently. EKG does not show ST elevation. Continue aspirin and Plavix. Keep patient NPO. We will proceed with coronary angiogram with possible percutaneous coronary intervention. Risks and benefits of procedure been discussed with the patient. He understands the risks and benefits and wants to proceed with the procedure. Order echocardiogram. Thank you for involving us with care of this patient. We will continue to follow. Please call with questions Consult Attestations Medical Necessity Statement: Care expected to cross 2 midnights Coding Level of Care Code Acute Recruitment Coordinator for [facility] Fwd Diagnoses CAD (coronary artery disease) I25.10 Non-ST elevation MS (NSTEMI) I21.4 HTN (hypertension) I10 COPD (chronic obstructive pulmonary disease) J44.9
[2022-04-15] MEDS: insulin lispro 100 unit/1 mL SUBCUT ×3 (09:31→20:16)
[2022-04-15] MEDS: metoprolol tartrate 25 mg Tablet PO ×2 (09:32→20:13)
[2022-04-15] MEDS: pantoprazole DR 40 mg Tablet PO (09:32)
[2022-04-15] MEDS: aspirin 81 mg EC Tablet PO (09:32)
[2022-04-15] MEDS: clopidogrel 75 mg Tablet PO (09:32)
[2022-04-15] MEDS: tamsulosin 0.4 mg Capsule PO (09:33)
--- NOTE | 2022-04-15 10:14 | PC.CHAP ---
Pastoral Care Encounter/Spiritual Assessment Type of Contact [] Declined manager statistical programming visit [] Patient/Family/Request visit [] Outpatient visit [] Follow-up visit [] Physician referral [] Code/Alert [x] Routine visit [] Staff referral [] Actively dying [x] Patient sleeping [] Family support [] [] Out of room [] Palliative care [] [] Receiving care in room [] Pre-surgical visit [] Trauma [] Long length of stay [x] ICU visit [] Other: Relational/Emotional Strength [] Patient feels connected with others/family/visitors/staff [] Distress [] Loneliness/isolation [] Abandonment Spirituality of Patient [] Person of Terri [] Attends Confucianist of their Terri [] Believes in Prayer [] Reads Bible or Mormon materials [] There are Spiritual issues to be addressed Reference Data Expert Interventions [x] Prayer [] Active listening [] Non-anxious presence [] Spiritual/emotional support [] Crisis/trauma care [] Spiritual counseling [] Bereavement support [] Provided bereavement packet [] Provided Bible/devotional materials [] Provided toy/stuffed animal, coloring book to patient or family member [] Provided Communion [] Anointing/Waite [] Salvation [x] Completed spiritual assessment [] Other: Impact on Illness or Injury [] Angry [] Fearful [] Anxious [] Often cries [] Exhaustion [] Unable to work [] Unable to attend zoroastrianism [] Unable to walk/stand [] Unable to read [] Unable to drive [] Unable to eat/drink [] Unable to sleep [] Unable to be with family [] Patient intubated [] Other: Summary Time spent with patient
--- NOTE | 2022-04-15 10:33 | XACV_ITS ---
Exam Room: [facility] Ht: 170 cm Wt: 105 kg BSA: 2.27 m2 Gender: Male : 1945 Any Known Allergies: No known allergies Exam Priority: Routine Procedure(s): Procedure Description: Diagnostic procedure Procedure Description: Miscellaneous Procedure Description: ACT Procedure Description: Coronary Angiography Diagnostic Cath Status: Urgent Diagnostic Findings * Mid Left Anterior Descending: critical 99% stenosis, LUIS: 3 flow. This is at the distal edge of the prior stent. * Distal Circumflex Artery: moderate 60% stenosis, LUIS: 3 flow. * Left Main has no disease. * Mid Right Coronary Artery: minimal 30% stenosis, LUIS: 3 flow. * Coronary angiography shows co-dominance. PCI Status: Urgent PCI Indication: NSTE - ACS Interventional Findings * Procedure detail: We engaged left main artery with XB 3.5 guide catheter. IV heparin was administered to maintain ACT over 250 s. Using 0.014 run-through guidewire, we crossed severe mid LAD stenosis. It was predilated using 2.5 x 12 mm semi-compliant balloon. We then used 3.5 x 15 mm resolute [place] drug-eluting stent. It was postdilated with 3.75 x 15 mm NC balloon. At this time final angiogram was performed that showed excellent stent expansion, no residual stenosis and LUIS-3 flow. 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 * Mid Left Anterior Descendin% stenosis treated with a AB TREK 2.50X12 RX BALLOON, MERLIN R NATHANIEL 3.5X15 KATHERINE, and MDT EVA EUPHORA RX [id number] BALLOON. 0% residual stenosis, LUIS: 3 flow. Conclusions 1. Critical stenosis of mid LAD s/p successful revascularization with KATHERINE x1.. 2. Mid Left Anterior Descending was treated with a Balloon, Drug Eluting Stent, and Balloon. Recommendations * Aspirin and Plavix for at least 1 year. * High intensity statin therapy. * Outpatient cardiology follow-up in 4 weeks. Interventional RX Recommendation: PCI w/o planned CABG Diagnostic RX Recommendation: PCI w/o planned CABG Anticoagulation: Heparin Pressures Phase:Rest AO : 138 / 80 ( 106 ) @ 11:52:00 AM 136 / 76 ( 102 ) @ 11:56:00 AM 142 / 73 ( 102 ) @ 12:03:00 PM 121 / 69 ( 92 ) @ 12:12:00 PM 149 / 72 ( 105 ) @ 12:14:00 PM Clinical Evaluation EBL: 5mL-10mL Procedural Details Procedure Consent Obtained. Admit Source: In Patient. Pre-Procedure Time Out. Identified patient by full name and date of as verbalized by the patient/guarantor. Does the consent match the physician's order: Yes. Accurate & Complete Informed Consent: Yes. Inpatient/Outpatient History & Physical on Chart: Yes. If H&P is completed, is and addenduem needed: N/A; If yes, is the addendum complete: N/A. Visualize and Verify Site with Patient/Guarantor: N/A. Relevant Radiology Images available: N/A. Pre-op teaching completed and patient verbalized understanding. The risks, benefits, and alternatives of sedation and/or procedure were discussed by physician. The patient agrees to continue. Procedure started. [facility] Clinical Fraility Score: 4: Vulnerable. Telegraph Repeater Installer Indications: Worsening Angina. Chest Pain Symptom Assessment: Typical Angina Symptoms. Correct patient, site and procedure confirmed by cath team. Current diagnosis: NSTEMI. PERRLA. Strong, equal hand taxonomy teacher bilaterally. Lungs clear x 5 lobes. IV Site on Arrival: 20 gauge in the right forearm. IV Site on Arrival: 20 gauge in the left forearm. IV Fluids: 0.9% NaCl at KVO. 0 mL infused prior to central lab technician. Pre Procedural Pulses: bilateral dorsalis pedis was 1+. Oxygen started at 2liters/min via nasal canula. right groin was prepped with chloroprep then draped in the usual sterile fashion. left groin was prepped with chloroprep then draped in the usual sterile fashion. Baseline sample Acquired. HR: 80 BPM. Physician notified. Physician arrived. Physician scrubbed in. Immediate Pre-Procedure Time Out. Correct Patient: Yes; Correct Procedure: Yes; Correct Site: Yes; Correct Patient Position: Yes; Correct Supplies: Yes; Dried Flammable Prep: Yes; Blood Products Available: N/A;. Lidocaine 1% infiltrated to the right groin. Arterial access obtained with micropuncture set. A 5 cuban JR4 catheter in over [place] wire. Glidewire removed. Multiple views taken of right coronary artery. Catheter removed over the glide wire. A 5 cuban JL4 catheter in over wire. Glidewire removed. Catheter removed over the glide wire. Multiple views taken of left coronary artery. 6 cuban XB 3.5 guide catheter was inserted over the wire. [place] guidewire was advanced through the guide catheter to lesion in the mid LAD. Inflation number : 1 A AB TREK 2.50X12 RX BALLOON was prepped and advanced across the Mid LAD , then inflated to 12 NATHALIE for 0:06 seconds. Balloon inserted to lesion in the mid LAD. Inflation number: 2 The AB TREK 2.50X12 RX BALLOON was reinflated across the Mid LAD, to 12 NATHALIE for 0:16 seconds. Inflation number: 3 The AB TREK 2.50X12 RX BALLOON was reinflated across the Mid LAD, to 12 NATHALIE for 0:08 seconds. Balloon out. Results checked. Stent inserted to lesion in the mid LAD. Inflation Number : 4 A MDT R NATHANIEL 3.5X15 KATHERINE -Lot Number# [id number] Exp 12/17/2024 was prepped and advanced across the Mid LAD. The stent was deployed at 0 NATHALIE for 0:30 seconds. Stent balloon out over wire. Results checked. Balloon inserted to lesion in the mid LAD. Inflation number : 5 A MDT NC EUPHORA RX [id number] BALLOON was prepped and advanced across the Mid LAD , then inflated to 14 NATHALIE for 0:20 seconds. Inflation number: 6 The MDT NC EUPHORA RX [id number] BALLOON was reinflated across the Mid LAD, to 14 NATHALIE for 0:20 seconds. Balloon out. Results checked. Wire out. ACT drawn. Results 219 seconds. Therapeutic limits - pre-heparin administration 90-150 seconds and monitoring heparin during a vascular procedure >250 seconds. Guide catheter out. Post Procedure: Pulses reassessed and unchanged. PERRLA. Strong, equal hand taxonomy teacher bilaterally. No VTE prophylaxis required. A Suture was successful obtaining hemostatsis at the Right Femoral artery insertion site. Medication's Wasted: Other = Fentanyl 50mcg. Total IV fluids: 50 mL. Complications: none. Estimated blood loss: 5mL-10mL. Responsiveness - Normal response to verbal stimuli; alert and oriented, PERRLA. Airway - Unaffected, no intervention required; spontaneous ventilation. Post-op diagnosis: Severe obstructive CAD in Mid LAD. Circulation: W/N/L, pulses unchanged. Nausea/Vomiting: No. Procedure completed. Patient transferred by bed to ICU. Medication's Wasted: Heparin = 4000 u. Vital chart was stopped. Access Site Site: Right Femoral artery Sheath Size: 6 Fr Hemostasis Method: Suture Hemostasis Success: Successful Procedure Medications Start: 10:44 AM Stop: 10:44 AM Medication: Versed Amount: 1 mg Route: I.V. Start: 10:44 AM Stop: 10:44 AM Medication: Fentanyl Amount: 50 mcg Route: I.V. Start: 11:03 AM Stop: 11:03 AM Medication: Heparin Amount: 9000 units Route: I.V. Start: 11:05 AM Stop: 11:05 AM Medication: Versed Amount: 1 mg Route: I.V. Start: 11:12 AM Stop: 11:12 AM Medication: Heparin Amount: 1000 units Route: I.V. Start: 11:14 AM Stop: 11:14 AM Medication: Nitrogylcerin Amount: 200 mcg Route: I.A. Start: 11:20 AM Stop: 11:20 AM Medication: Heparin Amount: 1000 units Route: I.V. I, the attending physician, have reviewed and verified all procedure medications. Yes, all medications given per verbal order History/Risk Factors Hypertension: Yes Dyslipidemia: Yes Peripheral Arterial Disease (PAD): No Myocardial Infarction (SC): Yes Obesity: No Renal Disease: No Tobacco Use: Former Prior Interventions PCI: Yes CABG: No Valve Surgery: No Date of PCI: 07/28/2016 Report Signatures Finalized by Dav Ramirez MD on 04/25/2022 11:06 PM
--- NOTE | 2022-04-15 10:45 | W.PM.OPSUD ---
Surgery/Procedure H&P Update DATE OF PROCEDURE: April 15, 2022 DATE H&P PERFORMED: 04/15/22 H&P UPDATE INFORMATION: I have reviewed H&P completed within last 30 days, I have examined patient prior to procedure and No changes to prior documentation PREOP DIAGNOSIS: NSTEMI PRIMARY INDICATION FOR PROCEDURE: NSTEMI PLANNED PROCEDURE: Left heart catheter with possible percutaneous coronary intervention PATIENT REASSESSED PRIOR TO SEDATION, WITH NO CHANGE NOTED: Yes PHYSICAL EXAM: alert, oriented x 3, clear to auscultation bilaterally and regular rate & rhythm AIRWAY EVAL/ANESTHESIA PLAN: ASA III, Monitored Anesthesia, Risks, benefits & alternatives of sedation and/or procedure discussed and Patient agrees to continue as planned ADDITIONAL INFORMATION: Moderate sedation
--- NOTE | 2022-04-15 10:49 | PC.NURSE ---
upon morning assessment, patient is alert and oriente dto person, place, time, and situation. only complaint is leg pain related to cramps for which flexeril was administered. Dr vázquez rounded and patient has been taken to labor relations worker for an angiogram. Likely groin approach. Patient has been educated on need to lay flat for 6 hours upon return.
--- NOTE | 2022-04-15 14:39 | PC.NURSE ---
Patient came back to unit form director labor standards at 1201. Alert and oriented to person, place, time, and situation. BP: 133/69, HR 70, SPO2: 96, RR 18. Temp: 97.8.
--- NOTE | 2022-04-15 14:41 | PC.NURSE ---
Nurse sd PTT. Results cam back as 240.3.... NUrse is having lab redrawn.
[2022-04-15 15:22] LABS: Partial Thromboplastin Time 53.8 SECONDS (23.9-36.7)
--- NOTE | 2022-04-15 15:51 | PC.NURSE ---
PTT drawn at 1450 came back as 53.8. Nurse alerted Dr vázquez. Per Dr vázquez, we can removed the sheath 1 hour after the 53.8 ptt result.
[2022-04-15] MEDS: fentaNYL 50 mcg/mL INJ 2mL 25 MCG IVP (16:55)
--- NOTE | 2022-04-15 17:15 | P.PN_ITS ---
Subjective Subjective: Patient was seen and examined this morning, currently awaiting cardiac cath. Currently on nitro drip. Medications: Medication Review Details: Generic Name Dose Route Start Last Admin Trade Name [place] PRN Reason Stop Dose Admin Albuterol/Ipratrop ium 3 ml 04/15/22 08:00 04/15/22 15:35 Ipratropium-Albu terol 3 Ml Neb INHALATION 3 ml QID.RESPIRATORY S CH Administration Aspirin 81 mg 04/15/22 09:00 04/15/22 09:32 Aspirin 81 Mg Ec Tablet PO 81 mg DAILY BRITNEY Administration Clopidogrel Bisulf ate 75 mg 04/15/22 09:00 04/15/22 09:32 Clopidogrel 75 M g Tablet PO 75 mg DAILY BRITNEY Administration Cyclobenzaprine HC l 5 mg 04/15/22 08:32 04/15/22 08:40 Cyclobenzaprine 10 Mg Tablet PO 5 mg TID PRN Administration MUSCLE SPASMS Furosemide 40 mg 04/15/22 00:35 04/15/22 09:33 Furosemide 10 Mg /Ml Sdv 4ml IVP Not Given DAILY BRITNEY Nitroglycerin/Dext kami 50 mg in 250 mls @ 0 mls/hr 04/15/22 07:00 04/15/22 07:[address] ip IV 15 mcg/min .Q0M BRITNEY 4.5 mls/hr Titration Protocol Per Protocol Insulin Human Lisp ro 0 unit 04/15/22 08:00 04/15/22 09:31 Insulin Lispro 1 00 Unit/1 Ml SUBCUT 8 unit WM&BEDTIME BRITNEY Administration Protocol Lisinopril 40 mg 04/15/22 06:30 04/15/22 09:33 Lisinopril 20 Mg Tablet PO 40 mg DAILY BRITNEY Administration Metoprolol Tartrat e 25 mg 04/15/22 09:00 04/15/22 09:32 Metoprolol Tartr ate 25 Mg Tablet PO 25 mg BID@0900,2100 BRITNEY Administration Pantoprazole Sodiu m 40 mg 04/15/22 09:00 04/15/22 09:[address] 40 Mg Tablet PO 40 mg DAILY BRITNEY Administration Tamsulosin HCl 0.4 mg 04/15/22 09:00 04/15/22 09:33 Tamsulosin 0.4 M g Capsule PO 0.4 mg DAILY BRITNEY Administration Vitals/I&O/Wt Last Vital Signs Temp 97.7 F 04/15/22 15:17 Pulse 74 04/15/22 15:36 Resp 20 H 04/15/22 16:55 BP 114/54 04/15/22 15:15 Pulse Ox 95 04/15/22 15:36 O2 Del Method 04/15/22 15:36 O2 Flow Rate 3 04/15/22 15:36 04/15/22 04/15/22 04/15/22 06:59 14:59 22:59 Intake Total 241.15 / 241.15 Output Total 1200 / 1200 375 / 375 Balance -1200 / -1200 -133.85 / -133.85 Weight last 48 hrs Weight 104.961 kg Weight 102.058 kg Physical Exam Resp: COMMON NORMALS: normal respiratory effort, No retractions, No use of accessory muscles and clear to auscultation bilaterally EFFORT & INSPECTION: Yes symmetric chest movement AUSCULTATION: clear to auscultation bilaterally Cardio: COMMON NORMALS: regular rate, regular rhythm, S1 normal heart sound pr esent, S2 normal heart sound present, No gallops present (Cardio), No murmurs present (Cardio), No rub (Cardio) and Peripheral pulses 2+ throughout RATE: regular rate RHYTHM: regular rhythm HEART SOUNDS: S1 normal heart sound present and S2 normal heart sound present PERIPHERAL PULSES: Peripheral pulses 2+ throughout GI: COMMON NORMALS: Normal to inspection, nondistended, normoactive bowel sounds present, Soft to palpation, non-tender, No hepatosplenomegaly present and no masses AUSCULTATION: Yes normoactive bowel sounds PALPATION: Yes Soft to palpation and Yes No hepatosplenomegaly present RECTAL EXAM: Yes deferred Data : 04/15/22 04:20 04/15/22 06:26 Micro: Microbiology 04/15/22 04:20 Blood Culture - Preliminary Blood SPECIMEN COLLECTED 04/15/22 04:20 Blood Culture - Preliminary Blood SPECIMEN COLLECTED A&P Assessment and plan (1) Non-ST elevation [place] (NSTEMI): Status: Acute (2) Anticoagulant long-term use: Status: Acute (3) COPD (chronic obstructive pulmonary disease): Status: Acute (4) THANG (obstructive sleep apnea): Status: Acute (5) HTN (hypertension): Status: Acute (6) Statin intolerance: Status: Acute (7) Benign essential hypertension with target blood pressure below 140/90: Status: Acute (8) Tobacco abuse: Status: Acute (9) Hx pulmonary embolism: Status: Acute (10) CAD (coronary artery disease): Status: Acute (11) Stented coronary artery: Status: Acute (12) History of myocardial infarction: Status: Acute (13) Noncompliance: Status: Acute Plan Assessment: #NSTEMI #chest pain #HFpEF #HTN #CAD status post PCI RCA, mid LAD #Transaminitis #COPD #Obstructive sleep apnea #History of pulmonary embolism #Noncompliance to medications, stopped taking all his medications, including furosemide #Leukocytosis: Likely reactive Plan: Follow 2D echo: Lower extremity Doppler vein: Negative for DVT Ultrasound abdomen: Hepatic steatosis. 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 Troponin trend: 56-83-63 EKG; Procalcitonin:0.14 Blood culture:NTD TSH: 4.57 proBNP:298 HbA1c: 9.8 Lipid profile appreciated: S/p cardiac cath: Report awaited. Continue aspirin Plavix statin, beta-janeen therapeutic anticoagulation. Continue Lasix On Eliquis at home for PE currently on hold, resume on discharge. Continue LDSSI, monitor fingerstick glucose, DuoNeb every 6 hours as needed Full code DVT prophylaxis: On Lovenox Attestations Medical Necessity Statement*: Patient needs to be in hospital for management of NSTEMI. Coding Level of Care Code Acute Hotel Recreational Facilities Manager for Chg Fwd Diagnoses Non-ST elevation [place] (NSTEMI) I21.4 Anticoagulant long-term use Z79.01 COPD (chronic obstructive pulmonary disease) J44.9 THANG (obstructive sleep apnea) G47.33 HTN (hypertension) I10 Statin intolerance Z78.9 Benign essential hypertension with target blood pressure below 140/90 I10 Tobacco abuse Z72.0 Hx pulmonary embolism Z86.711 CAD (coronary artery disease) I25.10 Stented coronary artery Z95.5 History of myocardial infarction I25.2 Noncompliance Z91.19
[2022-04-15 17:48] LABS: Glucose Point of Care 249 mg/dL (70-110)
--- NOTE | 2022-04-15 17:48 | PC.NURSE ---
Per Dr vázquez's orders, nurse pulled sheath. Nurse Srinivasan and Alistair at bedside for assistance if needed. Pressure held for 25 minutes. No outward signs of bleeding noted. A small Hematoma formed in the first minute, but was quickly stopped, about the size of half a gold ball formed in the right groin. No other hematomas felt, no bruising observed, patient does not report any discomfort. Site dressed with clear tegaderm and gauze. Patient has been instructed to and understands the need to lay flat for 6 hours. SHeath pulled at 1720.
--- NOTE | 2022-04-15 18:05 | PM.MISC ---
Miscellaneous Note Purpose of Documentation: Brief procedure note Note: Patient was found to have critical 99% mid LAD stenosis. Status post PCI with KATHERINE x1. Aspirin and Plavix for atleast 1 year
--- NOTE | 2022-04-15 18:27 | PC.NURSE ---
Addendum entered by Damien Hinkle RN 04/15/22 18:45: SHIft SUmmary: Uneventful shift. Patient went for an angigram at 1100. recieved a stent to the mid LAD. REturned form manager lab around 1200, but wasn't able to pull sheath until 1720 due to high PTT. SHeath is currently out and site is dressed with a clear tegaderm and gauze. small hematoma about 2.5 cm in the right groin, which has not grown in size. No other signs of bleeding. Patient is aware of requirement to lay flat for 6 hours after sheath removal (2320) and has been compliant so far. Patient has had complaints of leg spasms throughout the day, which has has received flexeril for. patient report relief after flexeril. During bedside report nurse attempted to show oncoming nurse location of hematoma. Hematoma is no longer palpable. Original Note: SHIft SUmmary: Uneventful shift. Patient went for an angigram at 1100. recieved a stent to the mid LAD. REturned form manager lab around 1200, but wasn't able to pull sheath until 1720 due to high PTT. SHeath is currently out and site is dressed with a clear tegaderm and gauze. small hematoma about 2.5 cm in the right groin, which has not grown in size. No other signs of bleeding. Patient is aware of requirement to lay flat for 6 hours after sheath removal (2320) and has been compliant so far. Patient has had complaints of leg spasms throughout the day, which has has received flexeril for. patient report relief after flexeril.
--- NOTE | 2022-04-15 19:00 | PC.NURSE ---
Nitroglycerin drip not infusing at time of report
[2022-04-15] MEDS: ropinirole 1 mg Tablet PO (20:13)
[2022-04-15 20:21] LABS: Glucose Point of Care 275 mg/dL (70-110)
[2022-04-16] VITALS (55 sets, daily range): BP systolic 89–166; BP diastolic 55–85; PULSE 68–115; RESP 15–34; TEMP 36.6–37; O2SAT 92–97
[2022-04-16 03:39] LABS: Basophils % 0.3 %; Eosinophils # 0.1 10^3/uL (0.0-0.8); Eosinophils % 1.2 %; Hematocrit 40.2 % (42.0-52.0); Hemoglobin 12.7 g/dL (11.7-16.6); Lymphocytes # 1.2 10^3/uL (0.8-4.8); Lymphocytes % 9.8 %; Mean Corpuscular HGB Conc 31.6 g/dL (30.0-36.0); Mean Corpuscular Hemoglobin 28.9 pg (28.0-34.0); Mean Corpuscular Volume 91.4 fl (80-94); Mean Platelet Volume 10.2 fL (7.4-10.4); Monocytes # 0.9 10^3/uL (0.2-0.9); Monocytes % 7.8 %; Neutrophils # 9.65 10^3/uL (1.8-7.7); Neutrophils % 80.4 %; Nucleated Red Blood Cells % 0 %; Platelet Count 325 10^3/cmm (130-400); Red Cell Distribution Width 13.4 % (12.1-15.1)
[2022-04-16 04:08] LABS: Alanine Aminotransferase 44 U/L (0-41); Albumin Level 3.8 g/dL (3.5-5.2); Alkaline Phosphatase 107 IU/L (40-130); Anion Gap 14.5 (5-19); Aspartate Amino Transferase 42 U/L (0-40); Blood Urea Nitrogen 22 mg/dL (8-23); Calcium 8.8 mg/dL (8.5-10.5); Carbon Dioxide 30 mmol/L (22-29); Chloride 96 mmol/L (98-107); Globulin 2.7 g/dL (1.3-4.6); Glucose 256 mg/dL (65-115); Magnesium 1.7 mg/dL (1.7-2.3); Osmolality Calculated 294 mOsm/kg (285-295); Potassium 4.5 mmol/L (3.5-5.1); Sodium 136 mmol/L (136-145); Total Bilirubin 0.4 mg/dL (0.15-1.2); Total Protein 6.5 g/dL (6.6-8.7)
--- NOTE | 2022-04-16 04:18 | PC.NURSE ---
Patient had 5-6 beat run of vtach, Dr. Arnold made aware. Magnesium infusion ordered at this time.
[2022-04-16 07:52] LABS: Glucose Point of Care 261 mg/dL (70-110)
--- NOTE | 2022-04-16 08:25 | PM.PN ---
Subjective Subjective: Patient is doing well. Denies complaints of chest pain or shortness of breath. Renal function worsened slightly today. Vitals/I&O/Wt Last Vital Signs Temp 97.8 F 04/16/22 04:00 Pulse 73 04/16/22 06:30 Resp 16 04/16/22 04:30 BP 165/69 04/16/22 06:30 Pulse Ox 95 04/16/22 06:30 O2 Del Method 04/16/22 02:15 O2 Flow Rate 3 04/16/22 04:30 04/15/22 04/16/22 04/16/22 22:59 06:59 14:59 Intake Total 150.1 / 391.25 52 / 443.25 Output Total 300 / 675 600 / 1275 Balance -149.9 / -283.75 -548 / -831.75 Weight last 48 hrs Weight 231 lb 6.4 oz Weight 225 lb Physical Exam Narrative: GENERAL: Patient is alert, awake and oriented x3. [] NECK: No jugular vein distension. [] HEENT: No cyanosis. No icterus. No pallor. [] HEART: Regular S1 and S2. No murmur, rub or gallop. [] LUNGS: Clear to auscultate bilaterally. [] ABDOMEN: Soft, nontender and nondistended. Positive bowel sounds. No guarding, rebound or tenderness. [] CENTRAL NERVOUS SYSTEM: Grossly nonfocal. [] EXTREMITIES: Lower extremities with 1+ edema bilaterally. Pulses palpable in the lower extremities, both dorsalis pedis and posterior tibial. [] Data : 04/16/22 03:26 04/16/22 03:26 Micro: Microbiology 04/15/22 04:20 Blood Culture - Preliminary Blood NEGATIVE TO DATE 04/15/22 04:20 Blood Culture - Preliminary Blood NEGATIVE TO DATE A&P Assessment and plan (1) CAD (coronary artery disease): Status: Acute (2) Non-ST elevation ID (NSTEMI): Status: Acute (3) HTN (hypertension): Status: Acute (4) COPD (chronic obstructive pulmonary disease): Status: Acute Plan Patient presented with non-ST elevation ID. He was not taking medications recently. EKG does not show ST elevation. Coronary angiogram revealed critical 99% stenosis of mid LAD. He underwent successful revascularization with KATHERINE x1. Continue aspirin and Plavix for at least 1 year. Echo shows normal LV systolic function. Renal function worsened slightly today. We will suggest gentle IV hydration and monitor renal function for today. Thank you for involving us with care of this patient. We will continue to follow. Please call with questions Attestations Medical Necessity Statement*: Care expected to cross 2 midnights. Coding Level of Care Code Acute Rotary Adjuster for [facility] Fwd Diagnoses CAD (coronary artery disease) I25.10 Non-ST elevation ID (NSTEMI) I21.4 HTN (hypertension) I10 COPD (chronic obstructive pulmonary disease) J44.9
[2022-04-16] MEDS: tamsulosin 0.4 mg Capsule PO (08:54)
[2022-04-16] MEDS: pantoprazole DR 40 mg Tablet PO (08:54)
[2022-04-16] MEDS: lisinopril 20 mg Tablet 40 MG PO (08:54)
[2022-04-16] MEDS: metoprolol tartrate 25 mg Tablet PO ×2 (08:55→20:54)
[2022-04-16] MEDS: aspirin 81 mg EC Tablet PO (08:55)
[2022-04-16] MEDS: clopidogrel 75 mg Tablet PO (08:55)
[2022-04-16] MEDS: FUROsemide 10 mg/mL SDV 4mL 40 MG IVP (08:55)
[2022-04-16] MEDS: insulin lispro 100 unit/1 mL SUBCUT ×4 (08:59→21:03)
[2022-04-16] MEDS: ipratropium-albuterol 3 mL Neb INHALATION (09:13)
[2022-04-16] MEDS: ezetimibe 10 mg Tablet PO (09:51)
[2022-04-16 11:40] LABS: Glucose Point of Care 275 mg/dL (70-110)
--- NOTE | 2022-04-16 12:32 | PM.PN ---
Subjective Subjective: Patient was seen and examined this morning, denies any chest pain, SCR is up trending likely due to lisinopril, given prior to cath, as well as possibly contrast use. Medications: Medication Review Details: Generic Name Dose Route Start Last Admin Trade Name [place] PRN Reason Stop Dose Admin Albuterol/Ipratrop ium 3 ml 04/15/22 08:00 04/16/22 11:27 Ipratropium-Albu terol 3 Ml Neb INHALATION Not Given QID.RESPIRATORY S CH Aspirin 81 mg 04/15/22 09:00 04/16/22 08:55 Aspirin 81 Mg Ec Tablet PO 81 mg DAILY BRITNEY Administration Clopidogrel Bisulf ate 75 mg 04/15/22 09:00 04/16/22 08:55 Clopidogrel 75 M g Tablet PO 75 mg DAILY BRITNEY Administration Cyclobenzaprine HC l 5 mg 04/15/22 08:32 04/15/22 17:55 Cyclobenzaprine 10 Mg Tablet PO 5 mg TID PRN Administration MUSCLE SPASMS Ezetimibe 10 mg 04/16/22 09:00 04/16/22 09:51 Ezetimibe 10 Mg Tablet PO 10 mg DAILY BRITNEY Administration Insulin Human Lisp ro 0 unit 04/15/22 08:00 04/16/22 08:59 Insulin Lispro 1 00 Unit/1 Ml SUBCUT 10 unit WM&BEDTIME BRITNEY Administration Protocol Metoprolol Tartrat e 25 mg 04/15/22 09:00 04/16/22 08:55 Metoprolol Tartr ate 25 Mg Tablet PO 25 mg BID@0900,2100 BRITNEY Administration Pantoprazole Sodiu m 40 mg 04/15/22 09:00 04/16/22 08:[address] 40 Mg Tablet PO 40 mg DAILY BRITNEY Administration Ropinirole HCl 1 mg 04/15/22 21:00 04/15/22 20:13 Ropinirole 1 Mg Tablet PO 1 mg BEDTIME BRITNEY Administration Tamsulosin HCl 0.4 mg 04/15/22 09:00 04/16/22 08:54 Tamsulosin 0.4 M g Capsule PO 0.4 mg DAILY BRITNEY Administration Vitals/I&O/Wt Last Vital Signs Temp 97.8 F 04/16/22 04:00 Pulse 79 04/16/22 09:12 Resp 16 04/16/22 09:00 BP 166/85 04/16/22 09:00 Pulse Ox 97 04/16/22 09:00 O2 Del Method 04/16/22 09:00 O2 Flow Rate 3 04/16/22 09:00 04/15/22 04/16/22 04/16/22 22:59 06:59 14:59 Intake Total 150.1 / 391.25 52 / 443.25 240 / 240 Output Total 300 / 675 600 / 1275 Balance -149.9 / -283.75 -548 / -831.75 240 / 240 Weight last 48 hrs Weight 104.961 kg Weight 102.058 kg Physical Exam Resp: COMMON NORMALS: normal respiratory effort, No retractions, No use of accessory muscles and clear to auscultation bilaterally EFFORT & INSPECTION: Yes symmetric chest movement AUSCULTATION: clear to auscultation bilaterally Cardio: COMMON NORMALS: regular rate, regular rhythm, S1 normal heart sound present, S2 normal heart sound present, No gallops present (Cardio), No murmurs present (Cardio), No rub (Cardio) and Peripheral pulses 2+ throughout RATE: regular rate RHYTHM: regular rhythm HEART SOUNDS: S1 normal heart sound present and S2 normal heart sound present PERIPHERAL PULSES: Peripheral pulses 2+ throughout GI: COMMON NORMALS: Normal to inspection, nondistended, normoactive bowel sounds present, Soft to palpation, non-tender, No hepatosplenomegaly present and no masses AUSCULTATION: Yes normoactive bowel sounds PALPATION: Yes Soft to palpation and Yes No hepatosplenomegaly present RECTAL EXAM: Yes deferred Data : 04/16/22 03:26 04/16/22 03:26 Micro: Microbiology 04/15/22 04:20 Blood Culture - Preliminary Blood NEGATIVE TO DATE 04/15/22 04:20 Blood Culture - Preliminary Blood NEGATIVE TO DATE A&P Assessment and plan (1) Non-ST elevation NE (NSTEMI): Status: Acute (2) Anticoagulant long-term use: Status: Acute (3) COPD (chronic obstructive pulmonary disease): Status: Acute (4) THANG (obstructive sleep apnea): Status: Acute (5) HTN (hypertension): Status: Acute (6) Statin intolerance: Status: Acute (7) Benign essential hypertension with target blood pressure below 140/90: Status: Acute (8) Tobacco abuse: Status: Acute (9) Hx pulmonary embolism: Status: Acute (10) CAD (coronary artery disease): Status: Acute (11) Stented coronary artery: Status: Acute (12) History of myocardial infarction: Status: Acute (13) Noncompliance: Status: Acute Plan Assessment: #NSTEMI #chest pain #HFpEF #HTN #CAD status post PCI RCA, mid LAD #Transaminitis #COPD #Obstructive sleep apnea #History of pulmonary embolism #Noncompliance to medications, stopped taking all his medications, including furosemide #Leukocytosis: Likely reactive #MARIANNA Plan: 2D echo: Lower extremity Doppler vein: Negative for DVT Ultrasound abdomen: Hepatic steatosis. 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 Troponin trend: 56-83-63 EKG; Procalcitonin:0.14 Blood culture:NTD TSH: 4.57 proBNP:298 HbA1c: 9.8 Lipid profile appreciated: S/p cardiac cath: s/p PCI To mid LAD, for 99% stenosis Continue aspirin Plavix statin, beta-janeen therapeutic anticoagulation. Hold Lasix , lisinopril Gentle IV hydration with normal saline, monitor intake output charting, avoid nephrotoxic's On Eliquis for PE Continue Lantus , LDSSI, monitor fingerstick glucose, DuoNeb every 6 hours as needed Full code DVT prophylaxis: On Lovenox Attestations Medical Necessity Statement*: Patient is still in hospital for monitoring of serum creatinine post cath. Need for gentle IV hydration. Coding Level of Care Code Acute Welt Insole Channeler for Chg Fwd Diagnoses Non-ST elevation NE (NSTEMI) I21.4 Anticoagulant long-term use Z79.01 COPD (chronic obstructive pulmonary disease) J44.9 THANG (obstructive sleep apnea) G47.33 HTN (hypertension) I10 Statin intolerance Z78.9 Benign essential hypertension with target blood pressure below 140/90 I10 Tobacco abuse Z72.0 Hx pulmonary embolism Z86.711 CAD (coronary artery disease) I25.10 Stented coronary artery Z95.5 History of myocardial infarction I25.2 Noncompliance Z91.19
[2022-04-16] MEDS: sodium chloride 0.9% 1,000 ML 50 ML IV (12:41)
[2022-04-16 16:58] LABS: Glucose Point of Care 251 mg/dL (70-110)
[2022-04-16] MEDS: magnesium hydroxide 30 mL UDC PO (19:05)
[2022-04-16] MEDS: ropinirole 1 mg Tablet PO (20:53)
[2022-04-16] MEDS: apixaban 5 mg Tablet PO (20:53)
[2022-04-16] MEDS: insulin glargine 100 units/1 mL 20 UNIT SUBCUT (21:04)
[2022-04-16 21:10] LABS: Glucose Point of Care 189 mg/dL (70-110)
[2022-04-16] MEDS: temazepam 15 mg Capsule PO (23:13)
[2022-04-17] VITALS (43 sets, daily range): BP systolic 127–165; BP diastolic 61–79; PULSE 68–85; RESP 13–35; TEMP 36.6–37.3; O2SAT 86–98
[2022-04-17] MEDS: cyclobenzaprine 10 mg Tablet 5 MG PO (05:34)
[2022-04-17] MEDS: ezetimibe 10 mg Tablet PO (08:21)
[2022-04-17] MEDS: clopidogrel 75 mg Tablet PO (08:21)
[2022-04-17] MEDS: insulin lispro 100 unit/1 mL SUBCUT (08:21)
[2022-04-17] MEDS: metoprolol tartrate 25 mg Tablet PO (08:21)
[2022-04-17] MEDS: pantoprazole DR 40 mg Tablet PO (08:21)
[2022-04-17] MEDS: tamsulosin 0.4 mg Capsule PO (08:21)
[2022-04-17] MEDS: aspirin 81 mg EC Tablet PO (08:21)
[2022-04-17] MEDS: sodium chloride 0.9% 1,000 ML 50 ML IV (08:22)
[2022-04-17] MEDS: apixaban 5 mg Tablet PO (08:23)
--- NOTE | 2022-04-17 08:26 | PM.PN ---
Subjective Subjective: Patient doing well. Denies chest pain.Creatinine has improved today Vitals/I&O/Wt Last Vital Signs Temp 99.2 F 04/17/22 04:00 Pulse 79 04/17/22 06:00 Resp 32 H 04/17/22 05:00 BP 152/63 04/17/22 05:00 Pulse Ox 95 04/17/22 05:00 O2 Del Method 04/17/22 04:00 O2 Flow Rate 3 04/17/22 04:00 04/16/22 04/17/22 04/17/22 22:59 06:59 14:59 Intake Total 840 / 1520 118 / 1638 Output Total 780 / 780 275 / 1055 200 / 200 Balance 60 / 740 -157 / 583 -200 / -200 Physical Exam Narrative: GENERAL: Patient is alert, awake and oriented x3. [] NECK: No jugular vein distension. [] HEENT: No cyanosis. No icterus. No pallor. [] HEART: Regular S1 and S2. No murmur, rub or gallop. [] LUNGS: Clear to auscultate bilaterally. [] ABDOMEN: Soft, nontender and nondistended. Positive bowel sounds. No guarding, rebound or tenderness. [] CENTRAL NERVOUS SYSTEM: Grossly nonfocal. [] EXTREMITIES: Lower extremities with 1+ edema bilaterally. Pulses palpable in the lower extremities, both dorsalis pedis and posterior tibial. [] Data : 04/16/22 03:26 04/17/22 08:38 Micro: Microbiology 04/15/22 04:20 Blood Culture - Preliminary Blood NEGATIVE TO DATE 04/15/22 04:20 Blood Culture - Preliminary Blood NEGATIVE TO DATE A&P Assessment and plan (1) CAD (coronary artery disease): Status: Inactive (2) Non-ST elevation DE (NSTEMI): Status: Inactive (3) HTN (hypertension): Status: Inactive (4) COPD (chronic obstructive pulmonary disease): Status: Inactive Plan Patient presented with non-ST elevation DE. Coronary angiogram revealed critical 99% stenosis of mid LAD. He underwent successful revascularization with KATHERINE x1. Continue aspirin and Plavix for at least 1 year. Echo shows normal LV systolic function. Renal function has improved today. He is chest pain free. Thank you for involving us with care of this patient. Patient is stable to be discharged from cardiology standpoint. Please call with questions Attestations Medical Necessity Statement*: Care expected to cross 2 midnights. Coding Level of Care Code Acute Electric Tripper Machine Operator for Silg Fwd Diagnoses CAD (coronary artery disease) I25.10 Non-ST elevation DE (NSTEMI) I21.4 HTN (hypertension) I10 COPD (chronic obstructive pulmonary disease) J44.9
[2022-04-17 09:06] LABS: Anion Gap 10.9 (5-19); Blood Urea Nitrogen 27 mg/dL (8-23); Calcium 9.1 mg/dL (8.5-10.5); Carbon Dioxide 32 mmol/L (22-29); Chloride 98 mmol/L (98-107); Glucose 217 mg/dL (65-115); Osmolality Calculated 294 mOsm/kg (285-295); Potassium 4.9 mmol/L (3.5-5.1); Sodium 136 mmol/L (136-145)
[2022-04-17 09:57] LABS: Glucose Point of Care 240 mg/dL (70-110)
[2022-04-17 11:09] LABS: Glucose Point of Care 289 mg/dL (70-110)
--- NOTE | 2022-04-17 12:58 | P.DS_ITS ---
Discharge Providers Date of Admission: 04/15/22 03:05 Date of Discharge: April 17, 2022 Attending Provider at Admission: Antoinette Yusuf MD Attending Provider at Discharge: Hermes Sapp MD Primary Care Provider: FLAVIA Lamb Diagnoses at Discharge Discharge Diagnosis (1) CAD (coronary artery disease): Status: Acute (2) Non-ST elevation NH (NSTEMI): Status: Acute (3) HTN (hypertension): Status: Acute (4) COPD (chronic obstructive pulmonary disease): Status: Acute Reason for Visit Reason for Visit: cp Hospital Course Hospital Course 76 year old male with PMH of COPD, dyslipidemia, GERD, hypertension, obstructive sleep apnea, CAD status post multiple PCI's, NH in past presented to hospital today with complaint of intermittent chest pain that has been going down his left arm.Patient was admitted for the management of NSTEMI: 2D echo done during the hospital stay : Normal left ventricular cavity size and systolic function. Left ventricular ejection fraction is estimated at 70 %.?No ?RWMA .? Grade I diastolic dysfunction ?(abnormal relaxation filling pattern), normal to mildly elevated ?filling pressures.Trace aortic valve regurgitation. Lower extremity Doppler vein: Negative for DVT. Patient underwent cardiac cath: S/p PCI to mid LAD, initially was kept on ACS protocol, he was discharged on DAPT, statin beta-janeen. He will have to continue on DAPT for at least a year. Patient was continued to be co managed for his other comorbid condition, he will see cardiology as outpatient. Patient will continue on Eliquis for history of PE. Patient overall responded well to above medical management and is being discharged in stable condition to home. Other pertinent imaging studies and lab work done during the hospital stay includes: Ultrasound abdomen:?Hepatic steatosis. 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 Lower extremity Doppler vein: Negative for DVT. Procalcitonin:0.14, Blood culture:NTD , TSH: 4.57, HbA1c: 9.8. Physical Exam Resp: COMMON NORMALS: normal respiratory effort, No retractions, No use of accessory muscles and clear to auscultation bilaterally EFFORT & INSPECTION: Yes symmetric chest movement AUSCULTATION: clear to auscultation bilaterally Cardio: COMMON NORMALS: regular rate, regular rhythm, S1 normal heart sound present, S2 normal heart sound present, No gallops present (Cardio), No murmurs present (Cardio), No rub (Cardio) and Peripheral pulses 2+ throughout RATE: regular rate RHYTHM: regular rhythm HEART SOUNDS: S1 normal heart sound present and S2 normal heart sound present PERIPHERAL PULSES: Peripheral pulses 2+ throughout GI: COMMON NORMALS: Normal to inspection, nondistended, normoactive bowel sounds present, Soft to palpation, non-tender, No hepatosplenomegaly present and no masses AUSCULTATION: Yes normoactive bowel sounds PALPATION: Yes Soft to palpation and Yes No hepatosplenomegaly present RECTAL EXAM: Yes deferred Discharge Data Studies Completed and Pending Completed Studies During Hospitalization Category Date Time Status XR chest 1V portable [id number] Stat Exams 04/14/22 19:39 Completed CV. 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 Venous Duplex 04/15/22 00:29 IMPRESSION: No evidence of deep vein thrombosis. Abdomen Ultrasound 04/15/22 00:33 IMPRESSION: 1. Hepatic steatosis. 2. 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 Laboratory Results WBC 12.0 10^3/uL (4.0-10.0) H 04/16/22 03:26 RBC 4.40 10^6/uL (4.1-5.3) 04/16/22 03:26 Hgb 12.7 g/dL (11.7-16.6) 04/16/22 03:26 Hct 40.2 % (42.0-52.0) L 04/16/22 03:26 MCV 91.4 fl (80-94) 04/16/22 03:26 MCH 28.9 pg (28.0-34.0) 04/16/22 03:26 MCHC 31.6 g/dL (30.0-36.0) 04/16/22 03:26 RDW 13.4 % (12.1-15.1) 04/16/22 03:26 Plt Count 325 10^3/cmm (130-400) 04/16/22 03:26 MPV 10.2 fL (7.4-10.4) 04/16/22 03:26 Neut % (Auto) 80.4 % 04/16/22 03:26 Lymph % (Auto) 9.8 % 04/16/22 03:26 Carver % (Auto) 7.8 % 04/16/22 03:26 Eos % (Auto) 1.2 % 04/16/22 03:26 Baso % (Auto) 0.3 % 04/16/22 03:26 Neut # (Auto) 9.65 10^3/uL (1.8-7.7) H 04/16/22 03:26 Lymph # (Auto) 1.2 10^3/uL (0.8-4.8) 04/16/22 03:26 Carver # (Auto) 0.9 10^3/uL (0.2-0.9) 04/16/22 03:26 Eos # (Auto) 0.1 10^3/uL (0.0-0.8) 04/16/22 03:26 Baso # (Auto) 0.0 10^3/uL (0.0-0.1) 04/16/22 03:26 Nucleated RBC % (auto) 0 % 04/16/22 03:26 Nucleated RBCs # 0.0 /100WBC 04/16/22 03:26 PT 13.10 SECONDS (12.1-14.9) 04/14/22 20:00 INR 0.96 (0.8-1.2) 04/14/22 20:00 APTT 53.8 SECONDS (23.9-36.7) H 04/15/22 14:50 Sodium 136 mmol/L (136-145) 04/17/22 08:38 Potassium 4.9 mmol/L (3.5-5.1) 04/17/22 08:38 Chloride 98 mmol/L (98-107) 04/17/22 08:38 Carbon Dioxide 32 mmol/L (22-29) H 04/17/22 08:38 Anion Gap 10.9 (5-19) 04/17/22 08:38 BUN 27 mg/dL (8-23) H 04/17/22 08:38 Creatinine 1.1 mg/dL (0.7-1.2) 04/17/22 08:38 GFR Calculation Not Reportable 04/17/22 08:38 Glucose 217 mg/dL (65-115) H 04/17/22 08:38 POC Glucose 289 mg/dL (70-110) H 04/17/22 11:06 Estimat Average Glucose 235 04/15/22 04:20 Hemoglobin A1c 9.8 % (4.0-6.0) H 04/15/22 04:20 Calculated Osmolality 294 mOsm/kg (285-295) 04/17/22 08:38 Calcium 9.1 mg/dL (8.5-10.5) 04/17/22 08:38 Magnesium 1.7 mg/dL (1.7-2.3) 04/16/22 03:26 Total Bilirubin 0.4 mg/dL (0.15-1.2) 04/16/22 03:26 AST 42 U/L (0-40) H 04/16/22 03:26 ALT 44 U/L (0-41) H 04/16/22 03:26 Alkaline Phosphatase 107 IU/L (40-130) 04/16/22 03:26 Troponin T Gen 5 ng/L 55 ng/L (0-15) H 04/15/22 06:35 Troponin T Baseline 56 ng/L (0-15) H 04/14/22 20:00 Troponin T 120 Minute 83.70 ng/L (0-15) H 04/14/22 22:15 Delta Troponin T 27.70 ABS# (0-10) H* 04/14/22 22:15 Troponin T Hi Sens 6Hr 63.12 ng/L (0-15) H 04/15/22 04:20 Troponin T Hi Sens 6Hr Delta 7.12 ng/L (0-12) 04/15/22 04:20 NT-Pro-B Natriuret Pep 298 pg/mL (0-450) 04/15/22 06:26 Total Protein 6.5 g/dL (6.6-8.7) L 04/16/22 03:26 Albumin 3.8 g/dL (3.5-5.2) 04/16/22 03:26 Globulin 2.7 g/dL (1.3-4.6) 04/16/22 03:26 Triglycerides 121 mg/dL (0-150) 04/15/22 06:26 Cholesterol 173 mg/dL (0-200) 04/15/22 06:26 LDL Cholesterol, Calc 92 mg/dL (50-129) 04/15/22 06:26 HDL Cholesterol 57 mg/dL (60-100) L 04/15/22 06:26 LDL/HDL Ratio 1.61 RATIO (0.00-3.22) 04/15/22 06: Cholesterol/HDL Ratio 3.04 mg/dL (1.0-5.00) 04/15/22 06:26 Procalcitonin 0.14 ng/mL (0-0.5) 04/15/22 06:26 TSH 4.57 uIU/mL (0.27-4.20) H 04/15/22 06:26 Urine Color Colorless (Yellow) 04/15/22 02:52 Urine Appearance Clear (CLEAR) 04/15/22 02:52 Urine pH 5 (5-7) 04/15/22 02:52 Ur Specific [place] 1.005 (1.005-1.030) 04/15/22 02:52 Urine Protein Neg (Negative) 04/15/22 02:52 Urine Glucose (UA) Trace (Normal) H 04/15/22 02:52 Urine Ketones Negative (Negative) 04/15/22 02:52 Urine Blood Neg (Negative) 04/15/22 02:52 Urine Nitrate Negative (Negative) 04/15/22 02:52 Urine Bilirubin Neg (Negative) 04/15/22 02:52 Urine Urobilinogen Norm mg/dL (Negative) 04/15/22 02:52 Ur Leukocyte Esterase Negative (Negative) 04/15/22 02:52 Vitals Last Vital Signs Temp 98.4 F 04/17/22 11:51 Pulse 69 04/17/22 12:00 Resp 27 H 04/17/22 12:00 BP 133/67 04/17/22 12:00 Pulse Ox 98 04/17/22 11:51 O2 Del Method 04/17/22 11:45 O2 Flow Rate 3 04/17/22 10:30 Discharge Plan Discharge Patient Disposition: Home Condition: Stable Prescriptions: New clopidogrel 75 mg Tablet 75 mg PO DAILY 30 Days Qty: 30 3RF ezetimibe 10 mg Tablet 10 mg PO DAILY 30 Days Qty: 30 3RF metoprolol succinate 50 mg tablet extended release 24 hr 50 mg PO DAILY 30 Days Qty: 30 3RF amlodipine 10 mg tablet 10 mg PO DAILY Qty: 30 3RF Eliquis 5 mg Tablet 5 mg PO BID@0900,2100 30 Days Qty: 60 0RF Continued pantoprazole 40 mg tablet,delayed release (DR/EC) 40 mg PO DAILY metformin 1,000 mg tablet 1,000 mg PO BID Spiriva with HandiHaler 18 mcg capsule, w/inhalation device 1 cap INHALATION DAILY Rx Instructions: puncture 1 cap using device; one dose = 2 inhalations albuterol sulfate [ProAir HFA] 90 mcg/actuation HFA aerosol inhaler 2 puff INHALATION Q6H PRN (Reason: Shortness Of Breath) glipizide 5 mg tablet 5 mg PO BID hydrocortisone 2.5 % cream 1 applic topical BID PRN (Reason: Rash) LidoPro Patch 4-4-5 % adhesive patch,medicated 1 patch topical Q12H PRN (Reason: pain) Qty: 15 0RF Rx Instructions: may leave on for up to 12 hrs glipizide 10 mg Tablet 10 mg PO BID aspirin 81 mg Tablet,Delayed Release (Dr/Ec) 81 mg PO DAILY 30 Days Qty: 30 3RF nitroglycerin 0.4 mg tablet, sublingual 0.4 mg sublingual Q5M 30 Days Qty: 30 3RF Rx Instructions: do not exceed 3 doses per episode Discharge Orders: Discharge Order (Routine); Ordered 04/17/22 Ordered By: Hermes Sapp Referrals: Dav Ramirez M.D [Physician] - 1 month (May time of 10:30 am ) Cynthia Roberts FNP [Nurse Practitioner] - (This appointment is for post hospital procedure angiogram ,with intervention will need wound check and lab test. appointment date April time of 10:30 am ) Ely Gunter FNP [Primary Care Provider] - (This appointment has been scheduled , appointment date April ,Wednesday , time of 2:00 pm ) Discharge Diet: Cardiac Patient Instructions: Metoprolol (By mouth), Amlodipine (By mouth), Clopidogrel (By mouth) (Plavix), Ezetimibe (By mouth) (Zetia), Heart Attack (DC), Coronary Angioplasty (DC), How to Stop Smoking (DC), Heart Healthy Diet (DC), COPD (Chronic Obstructive Pulmonary Disease) (DC), Coronary Intravascular Stent Placement (DC), COPD Stoplight, Chest Pain Stoplight, Opioid Safety, Post Angiogram Home Care Instructions, Post Heart Attack Stoplight Discharge Attestations Time Spent in Discharge Care*: less than 30 min Quality Metrics Clinical Quality Measures [ No reported AMI, CVA or VTE this stay] Coding Level of Care Code Acute Chg FW DC note Diagnoses CAD (coronary artery disease) I25.10 Non-ST elevation [place] (NSTEMI) I21.4 HTN (hypertension) I10 COPD (chronic obstructive pulmonary disease) J44.9
--- NOTE | 2022-04-17 13:43 | PC.NURSE ---
Patient discharged to home via wheelchair to personal vehicle. to drive home. Detailed medication and discharge education, including follow up appointments, provided. Written Information with patient in folder. Patient had no questions.
== END 2022-04-17 13:25 | disposition home or self-care (01) | DRG 247 ==
LOC: ER 04-15 → ICU 04-15 00:47
PROVIDERS: Internal Medicine; Admitting Provider Internal Medicine; Emergency Provider Emergency Medicine; PCP Nurse Practitioner; Visit Provider Internal Medicine
PROC: 027034Z Dilation of Coronary Artery, One Artery with Drug-eluting Intraluminal Device, Percutaneous Approach (ICD-10-PCS; principal; 2022-04-15 11:00)
PROC: 027034Z Dilation of Coronary Artery, One Artery with Drug-eluting Intraluminal Device, Percutaneous Approach (ICD-10-PCS; 2022-04-15 11:00)
DX: I21.4 Non-ST elevation (NSTEMI) myocardial infarction (principal); I50.32 Chronic diastolic (congestive) heart failure; I11.0 Hypertensive heart disease with heart failure; I25.119 Atherosclerotic heart disease of native coronary artery with unspecified angina pectoris; I25.2 Old myocardial infarction; K76.0 Fatty (change of) liver, not elsewhere classified; I71.4 Abdominal aortic aneurysm, without rupture; E78.5 Hyperlipidemia, unspecified; T50.1X6A Underdosing of loop [high-ceiling] diuretics, initial encounter; T38.3X6A Underdosing of insulin and oral hypoglycemic [antidiabetic] drugs, initial encounter; J44.9 Chronic obstructive pulmonary disease, unspecified; K21.9 Gastro-esophageal reflux disease without esophagitis; G47.33 Obstructive sleep apnea (adult) (pediatric); D72.829 Elevated white blood cell count, unspecified; R94.4 Abnormal results of kidney function studies; R74.01 Elevation of levels of liver transaminase levels; E11.9 Type 2 diabetes mellitus without complications; Z95.5 Presence of coronary angioplasty implant and graft; Z86.711 Personal history of pulmonary embolism; Z79.82 Long term (current) use of aspirin; Z72.0 Tobacco use
CPT/HCPCS: 36415; 36416; 71045; 76700; 80048; 80053; 80061; 81003; 82962; 83036; 83735; 83880; 84145; 84443; 84484; 85025; 85347; 85610; 85730; 87040; 93005; 93306; 93454; 93970; 94640; 94664; 96360; 96372; 96374; 99152; 99153; 99285; C1725; C1769; C1874; C1887; C1894; C9600; J1644; J1650; J1815; J1940; J2250; J3010; J3475; J3490; J7030; Q9967

== ENCOUNTER → 2022-04-27 10:09 | Outpatient (BNVA) | payer OTHER, SELFPAY | PROVIDERS: PCP Nurse Practitioner; Visit Provider Nurse Practitioner Family | DX: I25.10 Atherosclerotic heart disease of native coronary artery without angina pectoris (principal); I25.2 Old myocardial infarction; I10 Essential (primary) hypertension; Z87.891 Personal history of nicotine dependence | CPT/HCPCS: 36415; 80048; 99214 ==

== ENCOUNTER 2022-11-03 13:29 | Emergency (ER) | payer OTHER, SELFPAY ==
[2022-11-03 13:33] VITALS: BP 169/81; PULSE 77; RESP 22; TEMP 36.6; O2SAT 90; BMI 51.9
--- NOTE | 2022-11-03 13:42 | ECG_ITS ---
[facility] Test Date: 2022-11-03 Pat Name: Aamir Santa Department: Room: Gender: Male Pet Sitting: : 1945 Requested By: Eric Mancia Order Number: [id number] Shey MD: Dav Ramirez M.D. Measurements Intervals [place] Rate: 84 P: -5 [place]: 188 QRS: 68 QRSD: 103 T: 49 QT: 367 QTc: 436 Interpretive Statements SINUS RHYTHM WITH OCCASIONAL SUPRAVENTRICULAR PREMATURE COMPLEXES POSSIBLE ANTERIOR MYOCARDIAL INFARCTION , OF INDETERMINATE AGE [30 ms Q WAVE IN V3/V4, OR R < 0.2 mV IN V4] POSSIBLE INFERIOR MYOCARDIAL INFARCTION , PROBABLY OLD [30 ms Q WAVE IN II/aVF] Compared to ECG 04/15/2022 06:40:57 Myocardial infarct finding now present First degree AV block no longer present T-wave abnormality no longer present Electronically Signed On 11-03-2022 17:32:59 UX CONSULTANT by Dav Ramirez M.D. [email or web address]
--- NOTE | 2022-11-03 14:29 | CT_ITS ---
WS: [id number] CT HEAD TECHNIQUE: Noncontrast CT of the head obtained from the skullbase to the vertex. CLINICAL INFORMATION: Headache COMPARISON: None. DLP: 1011.[address] scans at [facility] use at least one of these dose optimization techniques: automated e xposure control; mA and/or kV adjustment per patient size (includes targeted exams where dose is matc hed to clinical indication); or iterative reconstruction. FINDINGS: No evidence of intracranial hemorrhage or mass effect. Ventricular system and basal cisterns are cha nt. Mild small vessel changes with mild parenchymal volume loss. Tiny chronic lacunar infarcts RIGHT caudate and RIGHT anterior thalamus. Vascular calcification. No extra-axial fluid collections. No ha dence of mass or mass effect. Mild mucosal thickening in the ethmoid air cells. Mastoid air cells well aerated. CT/CT head wo con* [id number] IMPRESSION: 1. No evidence of intracranial hemorrhage or mass effect. 2. Mild small vessel changes with mild parenchymal volume loss. 3. Tiny chronic lacunar infarcts RIGHT caudate and anterior RIGHT thalamus. 4. Vascular calcification. 5. No acute intracranial findings.
--- NOTE | 2022-11-03 15:00 | ED_ITS ---
HPI - General Adult General: Chief complaint: Headache Stated complaint: weakness Time Seen by Provider: 11/03/22 14:19 History of Present Illness: This 76-year-old man presents to the ER with neck and bilateral shoulder pain that started 3 days ago. There is associated headache. Pain radiates into the both arms. Patient was initially taking pain medications for his neck and shoulder pain but stopped about 2 years ago because the pain got better. Recently, in the last few weeks, patient started taking pain medications again. He denies fever, nausea or vomiting. Turning his neck and moving in certain ways, makes the pain worse. Rest makes it better. Associated symptoms: Deny chest pain or headache(s) Review of Systems Const: Denies: chills or change in appetite Card: Denies: chest pain or lightheadedness : Denies: dysuria Musc: Reports: neck pain, back pain, joint pain (Neck and shoulder pain.) and limited range of motion (Neck and shoulders) Neuro: Denies: headache(s) or weakness in extremities Psych: Denies: depression Theron/Lymph: Denies: easy bruising All/Imm: Denies: urticaria, tongue swelling or facial swelling PFSH ED PFSH: Medical History Anticoagulant long-term use Aortic insufficiency with aortic stenosis ASHD (arteriosclerotic heart disease) Atherosclerotic heart disease of [place] coronary artery with other forms of angina pectoris Balanitis Benign essential hypertension with target blood pressure below 140/90 CAD (coronary artery disease) Chest pain COPD (chronic obstructive pulmonary disease) COPD (chronic obstructive pulmonary disease) Dyslipidemia GERD (gastroesophageal reflux disease) History of myocardial infarction HTN (hypertension) Hx pulmonary embolism Non-ST elevation MA (NSTEMI) Noncompliance THANG (obstructive sleep apnea) Statin intolerance Tobacco abuse Surgical History H/O circumcision S/P PTCA (percutaneous transluminal coronary angioplasty) S/P tonsillectomy Stented coronary artery Family History Brother Cancer Diabetes Hypertension Myocardial infarction Mother CAD (coronary artery disease) Diabetes Hypertension Myocardial infarction Father CAD (coronary artery disease) Stroke Hypertension Myocardial infarction Sister CAD (coronary artery disease) Social History Smoking and tobacco status: former smoker Alcohol intake: current Alcohol intake frequency: few times a month Household members: spouse Marital status: Current occupational status: retired Physical Exam Const: COMMON NORMALS: no acute distress, patient oriented x3, no limitations and alert Neck/C-Spine: OTHER: Limited range of neck movement due to pain. Chest: COMMONS NORMALS: normal inspection of the chest Resp: COMMON NORMALS: normal respiratory effort, No retractions, No use of accessory muscles and clear to auscultation bilaterally AUSCULTATION: clear to auscultation bilaterally Cardio: COMMON NORMALS: regular rate, regular rhythm and No murmurs present (Cardio) RATE: regular rate RHYTHM: regular rhythm GI: COMMON NORMALS: Normal to inspection, nondistended, normoactive bowel sounds present and non-tender : COMMON NORMALS: Yes no CVA tenderness BLADDER/KIDNEY EXAM: Yes no CVA tenderness Back/Pelvis: COMMON NORMALS: no CVA tenderness and no thoracic nor lumbar tenderness Extremity: OTHER: Good range of upper extremity movement though with pain. No focal neurologic deficit. Hyperpigmentation of chronic venous stasis in both lower extremities. Bilateral pitting pedal edema. Neuro: COMMON NORMALS: patient oriented x3 and no focal motor deficits SENSORIUM/ORIENTATION: Yes alert Psych: COMMON NORMALS: mental status grossly normal and cooperative Course Vital Signs: Vital signs: Vital Signs Temperature 97.8 F 11/03/22 13:33 Pulse Rate 78 11/03/22 15:42 Respiratory Rate 16 11/03/22 15:42 Blood Pressure 150/75 11/03/22 15:42 Pulse Oximetry 94 11/03/22 15:42 Oxygen Delivery Me thod 11/03/22 15:42 Oxygen Flow Rate 2 11/03/22 15:42 MDM - General Adult Medical Decision Making Medical decision making: It appears patient's neck and shoulder pain are chronic pain that he has from time to time. He has radiculopathy in both upper extremities though there is no demonstrable weakness or loss of sensation. At this time, there is no indication to admit him. He will be treated symptomatically. Return instructions provided. Lab Data 11/03/22 15:04 11/03/22 15:[address] 11/03/22 14:29 IMPRESSION: 1. No evidence of intracranial hemorrhage or mass effect. 2. Mild small vessel changes with mild parenchymal volume loss. 3. Tiny chronic lacunar infarcts RIGHT caudate and anterior RIGHT thalamus. 4. Vascular calcification. 5. No acute intracranial findings. Laboratory Results WBC 13.5 10^3/uL (4.0-10.0) H 11/03/22 15:04 RBC 4.90 10^6/uL (4.1-5.3) 11/03/22 15:04 Hgb 13.7 g/dL (11.7-16.6) 11/03/22 15:04 Hct 44.0 % (42.0-52.0) 11/03/22 15:04 MCV 89.8 fl (80-94) 11/03/22 15:04 MCH 28.0 pg (28.0-34.0) 11/03/22 15:04 MCHC 31.1 g/dL (30.0-36.0) 11/03/22 15:04 RDW 15.0 % (12.1-15.1) 11/03/22 15:04 Plt Count 426 10^3/cmm (130-400) H 11/03/22 15:04 MPV 9.1 fL (7.4-10.4) 11/03/22 15:04 Neut % (Auto) 77.3 % 11/03/22 15:04 Lymph % (Auto) 12.1 % 11/03/22 15:04 [place] % (Auto) 9.0 % 11/03/22 15:04 Eos % (Auto) 0.9 % 11/03/22 15:04 Baso % (Auto) 0.2 % 11/03/22 15:04 Neut # (Auto) 10.42 10^3/uL (1.8-7.7) H 11/03/22 15:04 Lymph # (Auto) 1.6 10^3/uL (0.8-4.8) 11/03/22 15:04 [place] # (Auto) 1.2 10^3/uL (0.2-0.9) H 11/03/22 15:04 Eos # (Auto) 0.1 10^3/uL (0.0-0.8) 11/03/22 15:04 Baso # (Auto) 0.0 10^3/uL (0.0-0.1) 11/03/22 15:04 Nucleated RBC % (auto) 0 % 11/03/22 15:04 Nucleated RBCs # 0.0 /100WBC 11/03/22 15:04 Sodium 142 mmol/L (136-145) 11/03/22 15:04 Potassium 4.0 mmol/L (3.5-5.1) 11/03/22 15:04 Chloride 100 mmol/L (98-107) 11/03/22 15:04 Carbon Dioxide 33 mmol/L (22-29) H 11/03/22 15:04 Anion Gap 13.0 (5-19) 11/03/22 15:04 BUN 16 mg/dL (8-23) 11/03/22 15:04 Creatinine 1.0 mg/dL (0.7-1.2) 11/03/22 15:04 GFR Calculation Not Reportable 11/03/22 15:04 Glucose 109 mg/dL (65-115) 11/03/22 15:04 Calculated Osmolality 296 mOsm/kg (285-295) H 11/03/22 15:04 Calcium 9.7 mg/dL (8.5-10.5) 11/03/22 15:04 Total Bilirubin 0.4 mg/dL (0.15-1.2) 11/03/22 15:04 AST 17 U/L (0-40) 11/03/22 15:04 ALT 15 U/L (0-41) 11/03/22 15:04 Alkaline Phosphatase 117 U/L (40-130) 11/03/22 15:04 Total Protein 7.7 g/dL (6.6-8.7) 11/03/22 15:04 Albumin 4.0 g/dL (3.5-5.2) 11/03/22 15:04 Globulin 3.7 g/dL (1.3-4.6) 11/03/22 15:04 Discharge Plan Discharge Patient Disposition: Home Clinical Impression: Headache, Neck pain, Bilateral shoulder pain Condition: Stable Prescriptions: New tramadol 50 mg tablet 50 mg PO TID PRN (Reason: pain) Qty: 20 0RF No Action albuterol sulfate [ProAir HFA] 90 mcg/actuation HFA aerosol inhaler 2 puff INHALATION Q6H PRN (Reason: Shortness Of Breath) hydrocortisone 2.5 % cream 1 applic topical BID PRN (Reason: Rash) nitroglycerin 0.4 mg tablet, sublingual 0.4 mg sublingual Q5M PRN (Reason: chest pain) Qty: 30 3RF Rx Instructions: do not exceed 3 doses per episode LidoPro Patch 4-4-5 % adhesive patch,medicated 1 patch topical Q12H PRN (Reason: pain) Qty: 15 0RF Rx Instructions: may leave on for up to 12 hrs cyanocobalamin (vitamin B-12) 1,000 mcg Tablet 1,000 mcg PO DAILY pantoprazole 20 mg Tablet,Delayed Release (Dr/Ec) 20 mg PO DAILY gabapentin 300 mg Capsule 300 mg PO BEDTIME metformin 500 mg Tablet Extended Release 24 Hr 1,000 mg PO BID Jardiance 25 mg Tablet 25 mg PO DAILY glipizide 10 mg Tablet 10 mg PO BID clopidogrel 75 mg Tablet 75 mg PO DAILY 30 Days Qty: 30 3RF ezetimibe 10 mg Tablet 10 mg PO DAILY 30 Days Qty: 30 3RF metoprolol succinate 50 mg tablet extended release 24 hr 50 mg PO DAILY 30 Days Qty: 30 3RF aspirin 81 mg Tablet,Delayed Release (Dr/Ec) 81 mg PO DAILY 30 Days Qty: 30 3RF amlodipine 10 mg tablet 10 mg PO DAILY Qty: 30 3RF Discharge Orders: Discharge ED (Routine); Ordered 11/03/22 Ordered By: Onofre Laguna Referrals: Ely Gunter, DISEASE EDUCATION SPECIALIST [Primary Care Provider] - Patient Instructions: Opioid Safety, Pain Management Activity Restrictions/Additional Instructions: * Continue taking your usual home medications. * Take tramadol as needed for pain. * Follow-up with your primary care physician within a week for reevaluation. * Return with new or worsening symptoms. Coding Level of Care Code ED Psychiatric Secretary for Kari Ortiz
[2022-11-03 15:20] LABS: Basophils % 0.2 %; Eosinophils # 0.1 10^3/uL (0.0-0.8); Eosinophils % 0.9 %; Hemoglobin 13.7 g/dL (11.7-16.6); Lymphocytes # 1.6 10^3/uL (0.8-4.8); Lymphocytes % 12.1 %; Mean Corpuscular HGB Conc 31.1 g/dL (30.0-36.0); Mean Corpuscular Volume 89.8 fl (80-94); Mean Platelet Volume 9.1 fL (7.4-10.4); Monocytes # 1.2 10^3/uL (0.2-0.9); Neutrophils # 10.42 10^3/uL (1.8-7.7); Neutrophils % 77.3 %; Nucleated Red Blood Cells % 0 %; Platelet Count 426 10^3/cmm (130-400); White Blood Count 13.5 10^3/uL (4.0-10.0)
[2022-11-03 15:24] VITALS: RESP 18
[2022-11-03] MEDS: morphine 4 mg/mL SDV 1 mL IVP (15:24)
[2022-11-03 15:40] LABS: Alanine Aminotransferase 15 U/L (0-41); Alkaline Phosphatase 117 U/L (40-130); Aspartate Amino Transferase 17 U/L (0-40); Blood Urea Nitrogen 16 mg/dL (8-23); Calcium 9.7 mg/dL (8.5-10.5); Carbon Dioxide 33 mmol/L (22-29); Chloride 100 mmol/L (98-107); Globulin 3.7 g/dL (1.3-4.6); Glucose 109 mg/dL (65-115); Osmolality Calculated 296 mOsm/kg (285-295); Sodium 142 mmol/L (136-145); Total Bilirubin 0.4 mg/dL (0.15-1.2); Total Protein 7.7 g/dL (6.6-8.7)
[2022-11-03 15:42] VITALS: BP 150/75; PULSE 78; RESP 16; O2SAT 94
== END 2022-11-03 17:20 | disposition home or self-care (01) ==
PROVIDERS: Emergency Provider Family Medicine; PCP Nurse Practitioner
DX: M25.512 Pain in left shoulder (principal); M25.511 Pain in right shoulder; R51.9 Headache, unspecified; M54.2 Cervicalgia; Z79.82 Long term (current) use of aspirin; Z79.02 Long term (current) use of antithrombotics/antiplatelets; Z79.84 Long term (current) use of oral hypoglycemic drugs; Z87.891 Personal history of nicotine dependence; I25.10 Atherosclerotic heart disease of native coronary artery without angina pectoris; J44.9 Chronic obstructive pulmonary disease, unspecified; E78.5 Hyperlipidemia, unspecified; I25.2 Old myocardial infarction; I10 Essential (primary) hypertension
CPT/HCPCS: 36415; 70450; 80053; 85025; 93005; 96374; 99285; J2270

== ENCOUNTER → 2022-11-17 11:31 | Outpatient (BNVA) | payer OTHER, SELFPAY | PROVIDERS: PCP Nurse Practitioner; Visit Provider Internal Medicine Cardiovascular Disease | DX: I25.10 Atherosclerotic heart disease of native coronary artery without angina pectoris (principal); I35.2 Nonrheumatic aortic (valve) stenosis with insufficiency; Z99.81 Dependence on supplemental oxygen; I10 Essential (primary) hypertension; J44.9 Chronic obstructive pulmonary disease, unspecified; E78.5 Hyperlipidemia, unspecified; I25.2 Old myocardial infarction; Z86.711 Personal history of pulmonary embolism; G47.33 Obstructive sleep apnea (adult) (pediatric); Z78.9 Other specified health status; Z87.891 Personal history of nicotine dependence; Z79.82 Long term (current) use of aspirin | CPT/HCPCS: 99214 ==

== ENCOUNTER → 2023-03-19 09:48 | Outpatient (BNVA) | payer OTHER, SELFPAY | PROVIDERS: PCP Nurse Practitioner; Visit Provider Internal Medicine Cardiovascular Disease | DX: I35.2 Nonrheumatic aortic (valve) stenosis with insufficiency (principal); Z86.711 Personal history of pulmonary embolism; Z99.81 Dependence on supplemental oxygen; I25.10 Atherosclerotic heart disease of native coronary artery without angina pectoris; Z72.0 Tobacco use; J44.9 Chronic obstructive pulmonary disease, unspecified; I10 Essential (primary) hypertension; Z78.9 Other specified health status; G47.33 Obstructive sleep apnea (adult) (pediatric); I25.2 Old myocardial infarction; E78.5 Hyperlipidemia, unspecified | CPT/HCPCS: 99214 ==

== ENCOUNTER → 2023-08-19 13:19 | Outpatient (BNVA) | payer OTHER, SELFPAY | PROVIDERS: PCP Nurse Practitioner; Visit Provider Nurse Practitioner Family | DX: I25.10 Atherosclerotic heart disease of native coronary artery without angina pectoris (principal); I10 Essential (primary) hypertension; I25.2 Old myocardial infarction | CPT/HCPCS: 99214 ==

== ENCOUNTER 2023-11-04 11:38 | Outpatient (CLI) | payer OTHER, SELFPAY ==
--- NOTE | 2023-11-04 11:48 | USCV_ITS ---
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 Resting TBI of 0.49 on the right and 0.79 on the left CONCLUSIONS 1.Normal resting ETIENNE with abnormal resting TBI on the right side, suggesting possibly moderate peripheral artery disease involving the distal vessels. 2. Normal resting ETIENNE and TBI on the left side suggesting no significant arterial obstruction. Dr Kevin Ghosh MD [facility] (Electronically Signed) Final Date: 06 November 2023 10:59 S
== END 2023-11-04 11:39 | disposition home or self-care (01) ==
LOC: RAD 11:39
PROVIDERS: PCP Nurse Practitioner; Visit Provider Nurse Practitioner Family
DX: I73.9 Peripheral vascular disease, unspecified (principal)
CPT/HCPCS: 93922

== ENCOUNTER 2024-01-26 20:00 | Outpatient (CLI) | payer OTHER, SELFPAY | END 2024-01-26 20:01 | disposition home or self-care (01) | LOC: SLEEP 01-27 04:34 | PROVIDERS: PCP Nurse Practitioner; Visit Provider Nurse Practitioner | DX: G47.33 Obstructive sleep apnea (adult) (pediatric) (principal) | CPT/HCPCS: 95811 ==

== ENCOUNTER 2024-06-21 23:14 | Outpatient (CLI) | payer OTHER, SELFPAY | END 2024-06-21 23:15 | disposition home or self-care (01) | LOC: SLEEP 23:15 | PROVIDERS: PCP Nurse Practitioner; Visit Provider Nurse Practitioner | DX: G47.33 Obstructive sleep apnea (adult) (pediatric) (principal); Z99.89 Dependence on other enabling machines and devices | CPT/HCPCS: 95811 ==

== ENCOUNTER 2025-02-01 14:05 | Emergency (ER) | payer OTHER, SELFPAY ==
--- NOTE | 2025-02-01 14:08 | ECG_ITS ---
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 Measurements Intervals [place] Rate: 89 P: 4 PA: 218 QRS: 266 QRSD: 114 T: 73 QT: 379 QTc: 463 Interpretive Statements SINUS RHYTHM WITH FIRST DEGREE AV BLOCK RIGHT AXIS DEVIATION [QRS AXIS > 100] POSSIBLE ANTERIOR MYOCARDIAL INFARCTION , OF INDETERMINATE AGE [30 ms Q WAVE IN V3/V4, OR R < 0.2 mV IN V4] possible old inferior wall CT Compared to ECG 11/03/2022 15:15:28 First degree AV block now present Right-axis deviation now present Myocardial infarct finding still present Electronically Signed On 02-01-2025 18:02:06 CDT by Kevin Ghosh M.D. [email or web address]
[2025-02-01 14:14] VITALS: BP 176/75; PULSE 91; RESP 19; TEMP 36.5; O2SAT 91; BMI 34.9
[2025-02-01 17:14] LABS: Basophils % 0.3 %; Eosinophils # 0.2 10^3/uL (0.0-0.8); Eosinophils % 1.7 %; Hematocrit 42.5 % (37-53); Lymphocytes # 1.5 10^3/uL (0.8-4.8); Lymphocytes % 12.3 %; Mean Corpuscular HGB Conc 31.3 g/dL (30-55); Mean Corpuscular Hemoglobin 27.5 pg (27-33); Mean Platelet Volume 8.9 fL (7.4-10.4); Monocytes # 0.9 10^3/uL (0.2-0.9); Neutrophils # 9.45 10^3/uL (1.8-7.7); Neutrophils % 78.3 %; Nucleated Red Blood Cells % 0 %; Platelet Count 378 10^3/cmm (157-399); Red Blood Count 4.83 10^6/uL (3.85-5.65); Red Cell Distribution Width 13.8 % (12.1-15.1); White Blood Count 12.07 10^3/uL (3.29-11.43)
[2025-02-01 17:34] LABS: Alanine Aminotransferase 16 U/L (0-41); Albumin Level 4.1 g/dL (3.5-5.2); Alkaline Phosphatase 111 U/L (40-130); Anion Gap 16.2 (5-19); Aspartate Amino Transferase 18 U/L (0-40); Blood Urea Nitrogen 13 mg/dL (8-23); Calcium 9.3 mg/dL (8.5-10.5); Carbon Dioxide 29 mmol/L (22-29); Chloride 96 mmol/L (98-107); Creatinine Clr Calc Pharmacy 71.2745; Globulin 3.4 g/dL (1.3-4.6); Glucose 202 mg/dL (65-115); Osmolality Calculated 290 mOsm/kg (285-295); Potassium 4.2 mmol/L (3.5-5.1); Sodium 137 mmol/L (136-145); Total Bilirubin 0.3 mg/dL (0.15-1.2); Total Protein 7.5 g/dL (6.6-8.7)
[2025-02-01 19:35] LABS: Lactic Sepsis W/Reflex 1.7 mmol/L (0.5-2.2)
[2025-02-01 19:43] LABS: NT Pro B Type Natriuretic Pept 243 pg/mL (0-450); Procalcitonin 0.09 ng/mL (0-0.5)
[2025-02-01 19:54] LABS: C Reactive Protein 14.7 mg/L (0.0-4.9)
== END 2025-02-01 19:24 | disposition left against medical advice (07) ==
PROVIDERS: Emergency Medicine; Emergency Provider Family Medicine; PCP Nurse Practitioner
DX: Z01.89 Encounter for other specified special examinations (principal); I44.0 Atrioventricular block, first degree; R94.31 Abnormal electrocardiogram [ECG] [EKG]; Z53.21 Procedure and treatment not carried out due to patient leaving prior to being seen by health care provider
CPT/HCPCS: 36415; 80053; 83605; 83880; 84145; 85025; 86140; 93005; 99285